=== PATIENT | male | born 1940 | race Caucasian/White ===

== ENCOUNTER 2018-02-01 14:09 | Emergency (ER) | payer MEDICARE, OTHER, SELFPAY ==
[2018-02-01 14:11] VITALS: BP 101/69; PULSE 60; RESP 18; TEMP 36.8; O2SAT 98; BMI 34.2
[2018-02-01 14:21] VITALS: BP 124/67; PULSE 61; RESP 16; O2SAT 94
--- NOTE | 2018-02-01 14:26 | EKG12_ITS ---
Test Reason : SOB Blood Pressure : / mmHG Vent. Rate : 063 BPM Atrial Rate : 063 BPM P-R Int : 200 ms QRS Dur : 074 ms QT Int : 440 ms P-R-T Axes : 094 -11 020 degrees QTc Int : 450 ms Normal sinus rhythm Low voltage QRS Borderline ECG Confirmed by RENU MARRERO ([id number]), pictures editor ULICES ELIAS ([id number]) on 02/05/2018 1:44:10 PM Referred By: PHAM Confirmed By:RENU MARRERO
[2018-02-01 14:45] VITALS: PULSE 62; RESP 16; O2SAT 95
[2018-02-01] MEDS: Albuterol 2.5 MG/3 ML VIAL.NEB. INHALATION ×2 (14:47)
[2018-02-01] MEDS: Ipratropium/Albuterol Sulfate 3 ML AMPUL.NEB INHALATION (14:47)
--- NOTE | 2018-02-01 14:57 | RAD_ITS ---
STUDY: X-RAY CHEST REASON FOR EXAM: Male, 77 years old. Productive cough, wheeze TECHNIQUE: PA and lateral views of the chest. COMPARISON: None. FINDINGS: Cardiac monitoring leads overlie the chest. The lungs are underinflated but clear. There is no demonstrated pleural abnormality. Normal size heart. Normal mediastinum and colette. Normal visualized pulmonary arteries. There is atherosclerotic calcification of the aortic arch with tortuosity. There are diffuse degenerative changes of the visualized thoracic spine. Normal visualized ribs, clavicles, and shoulders. There is no demonstrated abnormality of the visualized soft tissue structures of the upper abdomen. RAD/Chest PA and Lateral IMPRESSION: Low lung volumes, without focal consolidation. Electronically Signed: Spike Parry DO at 15:15 EDT Tel , Service support ,
[2018-02-01 15:02] LABS: Absolute Lymphocyte Count 2.07 X10^3/ul (0.83-4.51); Absolute Neutrophil Count 8.5 X10^3/uL (2.0-7.7); Basophil# 0.03 X10^3/uL; Basophil% 0.2 % (0-1); Eosinophil# 0.21 X10^3/uL; Eosinophils% 1.7 % (0-5); Hemoglobin 13.2 g/dl (13.0-16.5); Lymphocyte # 2.07 X10^3/ul (4.0); Mean Corp Hgb Conc 32.2 g/gl (32-36); Mean Corpuscular Hgb 28.9 pg (27.0-32.0); Mean Corpuscular Volume 89.9 fL (80-94); Mean Platelet Vol. 9.5 fl (6.2-12.0); Monocyte# 1.31 X10^3/uL; Monocyte% 10.8 % (0-10); Neutrophil % 70.1 % (47-70); POSITIVE COUNT NO; POSITIVE DIFFERENTIAL NO; POSITIVE MORPHOLOGY NO; Platelet Count 262 K/mm3 (150-450); RBC Distribution Width CV 13.1 % (11.6-14.6); RBC Distribution Width SD 42.3 fl (35.1-43.9); Red Blood Count 4.56 M/mm3 (4.6-6.2); White Blood Count 12.2 K/mm3 (4.4-11.0)
[2018-02-01 15:11] LABS: Anion Gap 7 (5-15); BUN 21 mg/dL (7-18); BUN/Creat Ratio 18.1 RATIO (10-20); Calcium,Total 8.9 mg/dL (8.5-10.1); Chloride 106 mmol/L (98-107); Creatinine, Serum 1.16 mg/dL (0.70-1.30); EST Glomerular Filtration Rate 65 mL/min (>60); Est Glom Filt Rate - Afr Amer 79 mL/min (>60); Estimated Creatinine Clearance 56.81 ml/min; Glucose 208 mg/dL (74-106); Potassium 3.9 mmol/L (3.5-5.1); Sodium Level 141 mmol/L (136-145)
--- NOTE | 2018-02-01 16:01 | ED.DCSUM_ITS ---
- ER Visit Summary Date of Service: 02/01/18 Chief Complaint: Terrible breathing and cough . History of Present Illness: The patient is a 77 M who has history of asthma not COPD who presents with productive cough of green-yellow sputum. Onset of illness 4 days ago. He denies fever, chills night sweats. He denies rhinorrhea , postnasal drainage or congestion. He denies ear pain, throat pain or difficulty swallowing. Said no change in voice. He reports he has a moist cough which is productive of yellow-green sputum. 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 He denies increased swelling of his legs. Denies pain or discoloration. He is working compression hoses because of his prior clots and venous stasis. Physical Examination: Vital signs are normal. He has audible wheezing. Head is atraumatic normocephalic. Pupils are equal round reactive. Extraocular muscles are intact. TMs are pearly white with landmarks noted. Nares patent with no drainage. Posterior pharynx without erythema or exudate. Uvula is midline. There is no dysphonia or dysphasia. Trachea is midline. There is no stridor with auscultation of the neck. Heart is regular without murmur, gallop or rub. Lungs reveal wheezing throughout with increased x-ray phase. There is no egophony or increased vocal fremitus. Abdomen is soft nontender. He has 1+ pitting edema both lower extremities. Distal pulses palpated upper lower extremity. Neuro exam is nonfocal. Test Results: Two-view chest x-ray was obtained and reveals limited inspiratory volume with no acute process. Cardiac silhouette and mediastinum are normal. No evidence of effusion or infiltrate. White count slightly elevated 12.2 with 70 segs no bands. I panels marked for glucose of 208. Emergency Department Course and Treatment: Because patient has audible wheezing with productive cough will obtain x-ray to rule out pneumonia. He was treated with DuoNeb and albuterol. He is moving more air. There are still wheezing. Will treat with prednisone 60 mg p.o. and he will receive a dose of levofloxacin since he is allergic to doxycycline. Treatment Plan: Prescription for levofloxacin and 5 day course of prednisone Disposition: Discharged to home Impression: 1. Purulent bronchitis 2. Exacerbation of asthma This note was generated with [employer] software. It may contain incorrect words, spelling, and punctuation that were not noted in review of the chart prior to signing ED Disposition - Plan for ED Patient: Disposition: Home or Assisted Living Chief Complaint: Shortness of Breath Instructions: ED Bronchitis Asthmatic Prescriptions: Albuterol Inhaler [Ventolin Hfa] 2 puff INHALATION Q4H PRN PRN #1 inhaler PRN Reason: Wheezing Levofloxacin [Levaquin] 500 mg PO DAILY #6 tab Prednisone [Deltasone] 40 mg PO DAILY #10 tab Referrals: [facility],Out of [Primary Care Provider] - 3-5 Days if not improving
[2018-02-01] MEDS: levoFLOXacin 750 MG Tablet PO (16:02)
[2018-02-01] MEDS: predniSONE 20 MG Tablet 60 MG PO (16:02)
--- NOTE | 2018-02-01 16:06 | ED.DCSUM_ITS ---
- ER Visit Summary Date of Service: 02/01/18 Chief Complaint: [] History of Present Illness: The patient is a 77 M [] Physical Examination: [] Test Results: [] Emergency Department Course and Treatment: [] Treatment Plan: [] Disposition: [] Impression: [] This note was generated with [employer] dictation software. It may contain incorrect words, spelling, and punctuation that were not noted in review of the chart prior to signing ED Disposition - Plan for ED Patient: Disposition: Home or Assisted Living Chief Complaint: Shortness of Breath Instructions: ED Bronchitis Asthmatic Prescriptions: Albuterol Inhaler [Ventolin Hfa] 2 puff INHALATION Q4H PRN PRN #1 inhaler PRN Reason: Wheezing Inhaler, Assist Devices [Space Chamber Plus] 1 ea MC UD #1 spacer Levofloxacin [Levaquin] 500 mg PO DAILY #6 tab Prednisone [Deltasone] 40 mg PO DAILY #10 tab Referrals: [facility],Out of [Primary Care Provider] - 3-5 Days if not improving
[2018-02-01 16:23] VITALS: BP 132/96; PULSE 70; RESP 20; O2SAT 95
[2018-02-01 16:24] VITALS: RESP 20
--- NOTE | 2018-02-01 16:24 | ED.RN ---
REVIEWED D/C INSTRUCTIONS, FOLLOW UP CARE, PRESCRIPTIONS, AND S/S THAT WOULD WARRANT A RETURN TO THE ED WITH PT. PT VERBALIZED AN UNDERSTANDING AND DENIES FURTHER QUESTIONS FOR THIS RN. PT SKIN P/W/D, RESP EVEN AND UNLABORED, PT A&O X 3, NO DISTRESS NOTED. PT AMBULATED OUT OF ED, GAIT STEADY.
== END 2018-02-01 16:25 | disposition home or self-care (01) ==
PROVIDERS: Emergency Provider Emergency Medicine
DX: J41.1 Mucopurulent chronic bronchitis (principal); J45.901 Unspecified asthma with (acute) exacerbation; E66.9 Obesity, unspecified; K21.9 Gastro-esophageal reflux disease without esophagitis; E11.9 Type 2 diabetes mellitus without complications; I10 Essential (primary) hypertension; E78.00 Pure hypercholesterolemia, unspecified; Z79.51 Long term (current) use of inhaled steroids; Z86.718 Personal history of other venous thrombosis and embolism; Z79.02 Long term (current) use of antithrombotics/antiplatelets; Z79.84 Long term (current) use of oral hypoglycemic drugs; Z79.899 Other long term (current) drug therapy
CPT/HCPCS: 71046; 80048; 85025; 93005; 94640; 99285; A4216

== ENCOUNTER → 2018-12-10 | Outpatient (CLI) | payer MEDICARE, OTHER, SELFPAY | END | disposition home or self-care (01) | PROVIDERS: Family Provider Family Medicine; PCP Family Medicine; Referring Provider Family Medicine; Visit Provider Family Medicine | DX: E11.9 Type 2 diabetes mellitus without complications (principal); J44.9 Chronic obstructive pulmonary disease, unspecified | CPT/HCPCS: 36415 ==

== ENCOUNTER 2019-02-12 14:15 | Outpatient (RCR) | payer MEDICARE, OTHER, SELFPAY ==
[2019-01-15 15:24] VITALS: BP 110/51; PULSE 75; RESP 16; TEMP 36.3; BMI 35.3
--- NOTE | 2019-01-15 16:41 | HP.PCM_ITS ---
(1) Ulcer of right lower extremity with fat layer exposed Status: Chronic Current Visit: Yes Code(s): L97.912 - Non-pressure chronic ulcer of unspecified part of right lower leg with fat layer exposed (2) Ulcer of left lower extremity with fat layer exposed Status: Chronic Current Visit: Yes Code(s): L97.922 - Non-pressure chronic ulcer of unspecified part of left lower leg with fat layer exposed (3) Malnutrition Status: Suspected Current Visit: Yes Code(s): E46 - Unspecified protein- calorie malnutrition (4) Edema of lower extremity Status: Chronic Current Visit: No Code(s): R60.0 - Localized edema (5) Venous insufficiency of both lower extremities Status: Chronic Current Visit: Yes Code(s): I87.2 - Venous insufficiency (chronic) (peripheral) (6) Diabetic neuropathy associated with type 2 diabetes mellitus Status: Chronic Current Visit: Yes Code(s): E11.40 - Type 2 diabetes mellitus with diabetic neuropathy, unspecified History of Present Illness Date of Service: 01/17/19 Chief Complaint: New right and left leg ulcers History of Wound: 78-year-old male with diabetes, history of blood clots has Remington filters, venous insufficiency presents with open ulcers to the right and left legs. He had a recent injury to the left leg which caused a break in the skin. He denies trauma to the right leg however he noticed that as his swelling fluctuates this ulcer site emerged. He denies redness or odor. He did have previous vein ablations performed. He denies current fever, chill, nausea, vomiting, shortness of breath or chest pain. He is with his today. Past Medical History Past Medical History: Chronic Problems Ulcer of right lower extremity with fat layer exposed (Chronic) Ulcer of left lower extremity with fat layer exposed (Chronic) Leg erythema (Chronic) Essential hypertension (Chronic) GERD (gastroesophageal reflux disease) (Chronic) Hyperlipidemia (Chronic) COPD (chronic obstructive pulmonary disease) (Chronic) Edema of lower extremity (Chronic) Venous insufficiency of both lower extremities (Chronic) Diabetic neuropathy associated with type 2 diabetes mellitus (Chronic) Type 2 diabetes mellitus (Chronic) Surgical History: - - vein ablation LLE, juve filter placement Allergies/Adverse Reactions: Allergies clindamycin Allergy (Verified 01/15/19 15:54) Rash doxycycline Allergy (Verified 01/15/19 15:54) Rash Home Medications: Ambulatory Orders Medication Instructions Recorded Apixaban [Eliquis] 5 mg PO BID 02/03/16 Fluticasone/Salmeterol [Advair 1 puff INHALATION BID 02/03/16 500/50 Mcg Diskus] Montelukast [Singulair] 10 mg PO DAILY 02/03/16 Omeprazole [Prilosec] 20 mg PO DAILY 02/03/16 Propranolol HCl [Inderal (Beta 40 mg PO BID 02/03/16 Fernando)] Simvastatin [Zocor] 20 mg PO QHS 02/03/16 glipiZIDE [Glucotrol] 10 mg PO BID 02/03/16 metFORMIN (XR) [Glucophage Xr] 500 mg PO DAILY 02/03/16 Ferrous Sulfate 65 mg PO DAILY 02/04/16 Cetirizine HCl [Zyrtec] 10 mg PO DAILY 02/17/16 Co Q10 200 [Co Q-10] 100 mg PO DAILY 02/17/16 Docusate Sodium [Colace] 100 mg PO DAILY 02/17/16 Multivit-Min/Iron Fum/Folic AC 1 tab PO DAILY 02/17/16 [Rsiro-Ytzuukn-Xdaavwhi Tablet] Albuterol Inhaler [Ventolin Hfa] 2 puff INHALATION Q4H PRN PRN #1 02/01/18 inhaler Cholecalciferol (Vitamin D3) 5,000 unit PO DAILY 02/01/18 [Vitamin D3] Furosemide [Lasix] 10 mg PO DAILY 02/01/18 Hydroxyzine HCl 25 mg PO BID 02/01/18 Inhaler, Assist Devices [Space 1 ea MC UD #1 spacer 02/01/18 Chamber Plus] Bitter Melon 500 mg PO DAILY 01/15/19 Dapagliflozin Propanediol [Farxiga] 5 mg PO DAILY 01/15/19 Herbal Prostate PO DAILY 01/15/19 - Family History Maternal No pertinent history Paternal No pertinent history Smoking Status: Never smoker Review of Systems Constitutional: Denies: Chills, Fever, Fatigue HEENT: Denies: Sore Throat Cardiovascular: Denies: Chest Pain, Claudication Respiratory: Denies: Shortness of Breath Gastrointestinal: Denies: Nausea, Vomiting Musculoskeletal: Denies: Foot Pain, Leg Pain Skin: Reports: Skin Changes, Wounds Neurological: Denies: Numbness, Tingling Hematologic/ Lymphatic: Reports: Easy Bruising, Hx of blood clot - Physical Exam Vital Signs Temp Pulse Resp BP 97.3 F L 75 16 110/51 L 01/15/19 15:24 01/15/19 15:24 01/15/19 15:24 01/15/19 15:24 General: Alert, Oriented x3, Cooperative, No apparent distress HEENT: Atraumatic Extremities: No cyanosis, Capillary Refill Less than 3 Seconds, No Calf Tenderness - Negative Jana and Sanford signs bilateral, Diminished Peripheral Pulses, Edema Skin: Ulcer/ Wound - No purulence, erythema hamstring, odor, infection bilateral. The peripheral skin is very hairless and atrophic. There is no necrosis, eschar, or probing to deep structures to bilateral lower extremities. The ulcer bases are fibrous and with pale granulation tissue Wound Measurements and Assessment WC - Nurse 1 - General Ulcer Measurement Start: 01/15/19 15:24 Freq: Status: Active Protocol: Activity Type Activity Date Activity User E-Sign Co-Sign Detail Recorded Client Recorded Date Recorded By Document 01/15/19 15:24 [facility] [id number] 01/15/19 15:52 [facility] 01/15/19 15:24 Wound Center Nurse 1 [Ulcer Assessment] #8- L MCDOWELL -Combined with other wound No -Current Size (cm) - Length 0.7 -Current Size (cm) - Width 2 -Current Size (cm) - Depth 0.1 -Total Square Cm 1.4 -Photo Taken No -Epithelialization None Present -Tunneling No -Undermining/Tunneling No -Circular Undermining No -Exudate Amt Small -Exudate Type Sanguineous -Wound Margin Flat & Intact -Granulation Amt Large (67-100%) -Granulation Quality Red -Slough/Fibrin No -Necrosis Amt None Present (0 %) -Texture (Sharri-wound Skin Appearance) Assessed, Scarring -Moisture (Sharri-wound Skin Appearance Assessed,Dry/ ) Scaly -Color (Sharri-wound Skin Appearance) Assessed, Erythema, Hemosiderin Staining -Temperature (Sharri-wound Skin No Abnormality Appearance) (Pt Warm) -Tenderness on Palpation (Sharri-wound Yes Skin Appearance) -Ulcer Cleansing Rinsed/ Irrigated with Saline -Foul Odor after Cleansing No -Anesthetic Used 5% Lidocaine Gel #7- RT MEDIAL LEG/CALF CLUSTER -Combined with other wound No -Current Size (cm) - Length 3.8 -Current Size (cm) - Width 5.3 -Current Size (cm) - Depth 0.1 -Total Square Cm 20.14 -Date of Last Picture (Recall this 01/15/19 field) -Photo Taken Yes -Epithelialization None Present -Tunneling No -Undermining/Tunneling No -Circular Undermining No -Exudate Amt Small -Exudate Type Sanguineous -Wound Margin Flat & Intact -Granulation Amt Small (1-33%) -Granulation Quality Red -Slough/Fibrin Yes -Necrosis Amt Medium (34-66%) -Necrotic Tissue Type Adherent Slough -Texture (Sharri-wound Skin Appearance) Assessed, Scarring -Moisture (Sharri-wound Skin Appearance Assessed,Dry/ ) Scaly -Color (Sharri-wound Skin Appearance) Assessed, Erythema, Hemosiderin Staining -Temperature (Sharri-wound Skin No Abnormality Appearance) (Pt Warm) -Tenderness on Palpation (Sharri-wound No Skin Appearance) -Ulcer Cleansing Rinsed/ Irrigated with Saline -Foul Odor after Cleansing No -Anesthetic Used 5% Lidocaine Gel [Edema Assessment] -Lower Limb Edema Present Yes -Right Calf (cm) 41 -Right Ankle (cm) 26.1 -Left Calf (cm) 42 -Left Ankle (cm) 26.8 WC - Nurse 2 - General Ulcer CM Notes Start: 01/15/19 15:24 Freq: Status: Active Protocol: Activity Type Activity Date Activity User E-Sign Co-Sign Detail Recorded Client Recorded Date Recorded By Document 01/15/19 16:16 ROWDY [id number] 01/15/19 16:19 01/15/19 16:16 Wound Center Nurse 2 [Procedure/Treatment] #8- L MCDOWELL -Time 16:16 -Correct Patient Yes -Correct Side, Site, Position Yes -Correct Procedure Yes -Procedure Performed Yes -Type of Procedure Debridement -Clinical Debridement Subcutaneous -Post Debridement Size (cm) - Length 0.8 -Post Debridement Size (cm) - Width 0.2 -Post Debridement Size (cm) - Depth 0.1 -Total Square Cm 0.16 -Wound/Ulcer Outcome Not Healed -Ulcer Cleansing Rinsed/ Irrigated with Saline -Foul Odor after Cleansing No -Bioengineered Tissue No -Bleeding Controlled with Pressure -Offloading No -Treatment Response Procedure Tolerated Well #7- RT MEDIAL LEG/CALF CLUSTER -Time 16:16 -Correct Patient Yes -Correct Side, Site, Position Yes -Correct Procedure Yes -Procedure Performed Yes -Type of Procedure Debridement -Clinical Debridement Subcutaneous -Post Debridement Size (cm) - Length 3.8 -Post Debridement Size (cm) - Width 5.4 -Post Debridement Size (cm) - Depth 0.1 -Total Square Cm 20.52 -Wound/Ulcer Outcome Not Healed -Ulcer Cleansing Rinsed/ Irrigated with Saline -Bioengineered Tissue No -Bleeding Controlled with Pressure -Offloading No -Treatment Response Procedure Tolerated Well [See Physician Procedure note for Specifics] Pain Scale: 0-10 Numeric [Pain] -Is Patient Pain Free? Yes Musculoskeletal: No Tenderness to Palpation of Joints or Extremities, Muscle Wasting, - - No bogginess or fluctuance on palpation bilateral lower extremities. Active range of motion of digits and ankles in all directions as noted bilateral lower extremity Neurological: - - Lack of full normal epicritic sensation to light touch consistent with potential neuropathy bilateral lower extremities Psych/Mental Status: Normal Affect, Appropriate Debridement Note Post-Debridement Measurements/Treatment WC - Nurse 2 - General Ulcer CM Notes Start: 01/15/19 15:24 Freq: Status: Active Protocol: Activity Type Activity Date Activity User E-Sign Co-Sign Detail Recorded Client Recorded Date Recorded By Document 01/15/19 16:16 ROWDY [id number] 01/15/19 16:19 ROWDY 01/15/19 16:16 Wound Center Nurse 2 #8- L MCDOWELL -Time 16:16 -Correct Patient Yes -Correct Side, Site, Position Yes -Correct Procedure Yes -Procedure Performed Yes -Type of Procedure Debridement -Clinical Debridement Subcutaneous -Post Debridement Size (cm) - Length 0.8 -Post Debridement Size (cm) - Width 0.2 -Post Debridement Size (cm) - Depth 0.1 -Total Square Cm 0.16 -Wound/Ulcer Outcome Not Healed -Ulcer Cleansing Rinsed/ Irrigated with Saline -Foul Odor after Cleansing No -Bioengineered Tissue No -Bleeding Controlled with Pressure -Offloading No -Treatment Response Procedure Tolerated Well #7- RT MEDIAL LEG/CALF CLUSTER -Time 16:16 -Correct Patient Yes -Correct Side, Site, Position Yes -Correct Procedure Yes -Procedure Performed Yes -Type of Procedure Debridement -Clinical Debridement Subcutaneous -Post Debridement Size (cm) - Length 3.8 -Post Debridement Size (cm) - Width 5.4 -Post Debridement Size (cm) - Depth 0.1 -Total Square Cm 20.52 -Wound/Ulcer Outcome Not Healed -Ulcer Cleansing Rinsed/ Irrigated with Saline -Bioengineered Tissue No -Bleeding Controlled with Pressure -Offloading No -Treatment Response Procedure Tolerated Well Pain Scale: 0-10 Numeric Is Patient Pain Free? Yes Wound debrided: leg Laterality: Right Wound Grade/Stage: grade 1 Type of Debridement: Excisional debridement Anesthesia Used: 5% Lidocaine Gel Depth: in the subcutaneous layer Percentage of wound debrided: 100 Instrument Used: #15 blade Tissue Removed: fibrous, devitalized subcutaneous, biofilm, slough Severity: Fat Layer Exposed Amount of bleeding with debridement: Mild Bleeding Controlled with: Pressure Patient tolerated procedure well - Additional Wound Wound debrided: leg Laterality: Left Wound Grade/Stage: grade 1 Type of Debridement: Excisional debridement Anesthesia Used: 5% Lidocaine Gel Depth: in the subcutaneous layer Percentage of wound debrided: 100 Instrument Used: #15 blade Tissue Removed: fibrous, devitalized subcutaneous, biofilm, slough Severity: Fat Layer Exposed Amount of bleeding with debridement: Mild Bleeding Controlled with: Pressure Patient tolerated procedure: Patient tolerated procedure well Assessment/Plan Active Problems Ulcer of right lower extremity with fat layer exposed (Chronic) Ulcer of left lower extremity with fat layer exposed (Chronic) Venous insufficiency of both lower extremities (Chronic) Diabetic neuropathy associated with type 2 diabetes mellitus (Chronic) Assessment: See diagnoses Plan: I reviewed and discussed his case today. I recommend updating the tita gnostic data with CBC, CMP, hemoglobin A1c, and prealbumin. Order was provided. Subcutaneous excisional debridement was performed as noted in the clinical panel to both ulcer sites. A dressing of hydrogel and Adaptic was applied and I recommended changing this daily. To continue with compression management to keep edema under control with Tubigrip's. I do recommend periodic elevation and to avoid idle standing and sitting. He is reassured no local signs of infection are noted and I do not recommend additional antibiotics. It is also noted he is on anticoagulation medication Eliquis and he is at risk for continued skin discontinuities. I recommend updating his noninvasive vascular studies in order were provided today. His previous venous intervention was also noted and I recommend record request. Nutritional supplementation was recommended to optimize healing. To keep pressure off of the sites by avoid laying directly on them I offered him offloading donut pillows. A prescription for Vernon was provided he was advised on safe and proper use. To return to the wound healing center 1 week or call sooner for any questions or concerns. I answered all his questions.
[2019-01-22 13:31] VITALS: BP 124/69; PULSE 74; RESP 16; TEMP 36.6; BMI 35.3
--- NOTE | 2019-01-22 15:19 | PN.PCM_ITS ---
(1) Ulcer of right lower extremity with fat layer exposed Status: Chronic Current Visit: Yes Code(s): L97.912 - Non-pressure chronic ulcer of unspecified part of right lower leg with fat layer exposed (2) Ulcer of left lower extremity with fat layer exposed Status: Chronic Current Visit: Yes Code(s): L97.922 - Non-pressure chronic ulcer of unspecified part of left lower leg with fat layer exposed (3) Malnutrition Status: Suspected Current Visit: Yes Code(s): E46 - Unspecified protein- calorie malnutrition (4) Edema of lower extremity Status: Chronic Current Visit: No Code(s): R60.0 - Localized edema (5) Venous insufficiency of both lower extremities Status: Chronic Current Visit: Yes Code(s): I87.2 - Venous insufficiency (chronic) (peripheral) (6) Diabetic neuropathy associated with type 2 diabetes mellitus Status: Chronic Current Visit: Yes Code(s): E11.40 - Type 2 diabetes mellitus with diabetic neuropathy, unspecified (7) Peripheral vascular disease Status: Suspected Current Visit: Yes Code(s): I73.9 - Peripheral vascular disease, unspecified Type of Wound Date of Service: 01/22/19 Chief Complaint: New right and left leg ulcers History of Wound: 78-year-old male with diabetes, history of blood clots has [facility] filters, venous insufficiency presents with open ulcers to the right and left legs. He had a recent injury to the left leg which caused a break in the skin. He denies trauma to the right leg however he noticed that as his swelling fluctuates this ulcer site emerged. He denies redness or odor. He did have previous vein ablations performed. He denies current fever, chill, nausea, vomiting, shortness of breath or chest pain. He is with his today. He started Vernon nutritional supplementation as prescribed. He did obtain the recommended lab work at the [facility] and these have been faxed over for review. Progress of Wound: Stable - Physical Exam Vital Signs Temp Pulse Resp BP 97.8 F 74 16 124/69 H 01/22/19 13:31 01/22/19 13:31 01/22/19 13:31 01/22/19 13:31 General: Alert, Oriented x3, Cooperative, No apparent distress Extremities: No cyanosis, Capillary Refill Less than 3 Seconds, No Calf Tenderness - Negative Jana and Sanford sign bilateral, Diminished Peripheral Pulses, Edema - Bilateral lower extremity with hyperpigmentation Skin: Ulcer/ Wound - No purulence, erythema hamstring, odor, or acute signs of infection bilateral. The peripheral skin is hairless and atrophic. Wound Measurements and Assessment WC - Nurse 1 - General Ulcer Measurement Start: 01/15/19 15:24 Freq: Status: Active Protocol: Activity Type Activity Date Activity User E-Sign Co-Sign Detail Recorded Client Recorded Date Recorded By Document 01/22/19 13:31 [facility] [id number] 01/22/19 13:45 [facility] 01/22/19 13:31 Wound Center Nurse 1 [Ulcer Assessment] #9 LT CALF CLUSTER -Combined with other wound No -Current Size (cm) - Length 6.3 -Current Size (cm) - Width 1.9 -Current Size (cm) - Depth 0.1 -Total Square Cm 11.97 -Date of Last Picture (Recall this 01/22/19 field) -Photo Taken Yes -Epithelialization None Present -Tunneling No -Undermining/Tunneling No -Circular Undermining No -Exudate Amt Small -Exudate Type Serosanguineous -Wound Margin Flat & Intact -Granulation Amt Large (67-100%) -Granulation Quality Red -Slough/Fibrin No -Necrosis Amt None Present (0 %) -Texture (Sharri-wound Skin Appearance) Assessed, Scarring -Moisture (Sharri-wound Skin Appearance Assessed ) -Color (Sharri-wound Skin Appearance) Assessed, Hemosiderin Staining -Temperature (Sharri-wound Skin No Abnormality Appearance) (Pt Warm) -Tenderness on Palpation (Sharri-wound No Skin Appearance) -Ulcer Cleansing Rinsed/ Irrigated with Saline -Foul Odor after Cleansing No -Anesthetic Used 5% Lidocaine Gel #8- L MCDOWELL -Combined with other wound No -Current Size (cm) - Length 1.7 -Current Size (cm) - Width 1.8 -Current Size (cm) - Depth 0.1 -Total Square Cm 3.06 -Date of Last Picture (Recall this 01/22/19 field) -Photo Taken Yes -Epithelialization Small 1-33% -Tunneling No -Undermining/Tunneling No -Circular Undermining No -Exudate Amt Small -Exudate Type Serous -Wound Margin Flat & Intact -Granulation Amt Large (67-100%) -Granulation Quality Red -Slough/Fibrin No -Necrosis Amt None Present (0 %) -Texture (Sharri-wound Skin Appearance) Assessed, Scarring -Moisture (Sharri-wound Skin Appearance Assessed,Dry/ ) Scaly -Color (Sharri-wound Skin Appearance) Assessed, Hemosiderin Staining -Temperature (Sharri-wound Skin No Abnormality Appearance) (Pt Warm) -Tenderness on Palpation (Sharri-wound No Skin Appearance) -Ulcer Cleansing Rinsed/ Irrigated with Saline -Foul Odor after Cleansing No -Anesthetic Used 5% Lidocaine Gel #7- RT MEDIAL LEG/CALF CLUSTER -Combined with other wound No -Current Size (cm) - Length 2.3 -Current Size (cm) - Width 2.3 -Current Size (cm) - Depth 0.1 -Total Square Cm 5.29 -Date of Last Picture (Recall this 01/22/19 field) -Photo Taken Yes -Epithelialization None Present -Tunneling No -Undermining/Tunneling No -Circular Undermining No -Exudate Amt Small -Exudate Type Serosanguineous -Wound Margin Flat & Intact -Granulation Amt Large (67-100%) -Granulation Quality Red -Slough/Fibrin No -Necrosis Amt None Present (0 %) -Texture (Sharri-wound Skin Appearance) Assessed, Scarring -Moisture (Sharri-wound Skin Appearance Assessed,Dry/ ) Scaly -Color (Sharri-wound Skin Appearance) Assessed, Hemosiderin Staining -Temperature (Sharri-wound Skin No Abnormality Appearance) (Pt Warm) -Tenderness on Palpation (Sharri-wound No Skin Appearance) -Ulcer Cleansing Rinsed/ Irrigated with Saline -Foul Odor after Cleansing No -Anesthetic Used 5% Lidocaine Gel [Edema Assessment] -Lower Limb Edema Present Yes -Right Calf (cm) 41.4 -Right Ankle (cm) 26 -Left Calf (cm) 43 -Left Ankle (cm) 27 WC - Nurse 2 - General Ulcer CM Notes Start: 01/15/19 15:24 Freq: Status: Active Protocol: Activity Type Activity Date Activity User E-Sign Co-Sign Detail Recorded Client Recorded Date Recorded By Document 01/22/19 14:15 ROWDY [id number] 01/22/19 14:19 ROWDY 01/22/19 14:15 Wound Center Nurse 2 [Procedure/Treatment] #9 LT CALF CLUSTER -Time 14:17 -Correct Patient Yes -Correct Side, Site, Position Yes -Correct Procedure Yes -Procedure Performed Yes -Type of Procedure Debridement -Clinical Debridement Subcutaneous -Post Debridement Size (cm) - Length 6.3 -Post Debridement Size (cm) - Width 2 -Post Debridement Size (cm) - Depth 0.1 -Total Square Cm 12.6 -Wound/Ulcer Outcome Not Healed -Ulcer Cleansing Rinsed/ Irrigated with Saline -Foul Odor after Cleansing No -Bioengineered Tissue No -Bleeding Controlled with Pressure -Offloading No -Treatment Response Procedure Tolerated Well #8- L MCDOWELL -Time 14:17 -Correct Patient Yes -Correct Side, Site, Position Yes -Correct Procedure Yes -Procedure Performed Yes -Type of Procedure Debridement -Clinical Debridement Subcutaneous -Post Debridement Size (cm) - Length 1.8 -Post Debridement Size (cm) - Width 1.8 -Post Debridement Size (cm) - Depth 0.1 -Total Square Cm 3.24 -Wound/Ulcer Outcome Not Healed -Ulcer Cleansing Rinsed/ Irrigated with Saline -Foul Odor after Cleansing No -Bioengineered Tissue No -Bleeding Controlled with Pressure -Offloading No -Treatment Response Procedure Tolerated Well #7- RT MEDIAL LEG/CALF CLUSTER -Time 14:18 -Correct Patient Yes -Correct Side, Site, Position Yes -Correct Procedure Yes -Procedure Performed Yes -Type of Procedure Debridement -Clinical Debridement Subcutaneous -Post Debridement Size (cm) - Length 2.3 -Post Debridement Size (cm) - Width 2.4 -Post Debridement Size (cm) - Depth 0.1 -Total Square Cm 5.52 -Wound/Ulcer Outcome Not Healed -Ulcer Cleansing Rinsed/ Irrigated with Saline -Foul Odor after Cleansing No -Bioengineered Tissue No -Bleeding Controlled with Pressure -Offloading No -Treatment Response Procedure Tolerated Well [See Physician Procedure note for Specifics] Pain Scale: 0-10 Numeric [Pain] -Is Patient Pain Free? Yes Musculoskeletal: No Tenderness to Palpation of Joints or Extremities, Muscle Wasting, - - Compartment soft to palpate bilateral Neurological: - - Lack of epicritic sensation to light touch consistent with neuropathy bilateral lower extremities Psych/Mental Status: Normal Affect, Appropriate Debridement Note Post-Debridement Measurements/Treatment WC - Nurse 2 - General Ulcer CM Notes Start: 01/15/19 15:24 Freq: Status: Active Protocol: Activity Type Activity Date Activity User E-Sign Co-Sign Detail Recorded Client Recorded Date Recorded By Document 01/15/19 16:16 [id number] 01/15/19 16:19 Document 01/22/19 14:15 [id number] 01/22/19 14:19 01/15/19 01/22/19 16:16 14:15 Wound Center Nurse 2 #9 LT CALF CLUSTER -Time 14:17 -Correct Patient Yes -Correct Side, Site, Position Yes -Correct Procedure Yes -Procedure Performed Yes -Type of Procedure Debridement -Clinical Debridement Subcutaneous -Post Debridement Size (cm) - Length 6.3 -Post Debridement Size (cm) - Width 2 -Post Debridement Size (cm) - Depth 0.1 -Total Square Cm 12.6 -Wound/Ulcer Outcome Not Healed -Ulcer Cleansing Rinsed/ Irrigated with Saline -Foul Odor after Cleansing No -Bioengineered Tissue No -Bleeding Controlled with Pressure -Offloading No -Treatment Response Procedure Tolerated Well #8- L MCDOWELL -Time 16:16 14:17 -Correct Patient Yes Yes -Correct Side, Site, Position Yes Yes -Correct Procedure Yes Yes -Procedure Performed Yes Yes -Type of Procedure Debridement Debridement -Clinical Debridement Subcutaneous Subcutaneous -Post Debridement Size (cm) - Length 0.8 1.8 -Post Debridement Size (cm) - Width 0.2 1.8 -Post Debridement Size (cm) - Depth 0.1 0.1 -Total Square Cm 0.16 3.24 -Wound/Ulcer Outcome Not Healed Not Healed -Ulcer Cleansing Rinsed/ Rinsed/ Irrigated with Irrigated with Saline Saline -Foul Odor after Cleansing No No -Bioengineered Tissue No No -Bleeding Controlled with Pressure Pressure -Offloading No No -Treatment Response Procedure Procedure Tolerated Well Tolerated Well #7- RT MEDIAL LEG/CALF CLUSTER -Time 16:16 14:18 -Correct Patient Yes Yes -Correct Side, Site, Position Yes Yes -Correct Procedure Yes Yes -Procedure Performed Yes Yes -Type of Procedure Debridement Debridement -Clinical Debridement Subcutaneous Subcutaneous -Post Debridement Size (cm) - Length 3.8 2.3 -Post Debridement Size (cm) - Width 5.4 2.4 -Post Debridement Size (cm) - Depth 0.1 0.1 -Total Square Cm 20.52 5.52 -Wound/Ulcer Outcome Not Healed Not Healed -Ulcer Cleansing Rinsed/ Rinsed/ Irrigated with Irrigated with Saline Saline -Foul Odor after Cleansing No -Bioengineered Tissue No No -Bleeding Controlled with Pressure Pressure -Offloading No No -Treatment Response Procedure Procedure Tolerated Well Tolerated Well Pain Scale: 0-10 Numeric Is Patient Pain Free? Yes Yes Wound debrided: anterior leg Laterality: Right Wound Grade/Stage: grade 1 Type of Debridement: Excisional debridement Anesthesia Used: 5% Lidocaine Gel Depth: in the subcutaneous layer Percentage of wound debrided: 100 Instrument Used: #15 blade Tissue Removed: fibrous, devitalized subcutaneous, biofilm, slough Severity: Fat Layer Exposed Amount of bleeding with debridement: Mild Bleeding Controlled with: Pressure Patient tolerated procedure well - Additional Wound Wound debrided: anterior leg Laterality: Left Wound Grade/Stage: grade 1 Type of Debridement: Excisional debridement Anesthesia Used: 5% Lidocaine Gel Depth: in the subcutaneous layer Percentage of wound debrided: 100 Instrument Used: #15 blade Tissue Removed: fibrous, devitalized subcutaneous, biofilm, slough Severity: Fat Layer Exposed Amount of bleeding with debridement: Mild Bleeding Controlled with: Pressure Patient tolerated procedure: Patient tolerated procedure well Assessment/Plan Active Problems Ulcer of right lower extremity with fat layer exposed (Chronic) Ulcer of left lower extremity with fat layer exposed (Chronic) Venous insufficiency of both lower extremities (Chronic) Diabetic neuropathy associated with type 2 diabetes mellitus (Chronic) Assessment: See diagnoses Plan: I reviewed and discussed his case today. I recommend updating the diagnostic data with CBC, CMP, hemoglobin A1c, and prealbumin. This was reviewed as noted in his previous notes addendum. His hemoglobin A1c is 7.4 which is decreased from 9%. He continues work with his primary care physician on improvement. No other gross abnormalities were noted. Subcutaneous excisional debridement was performed as noted in the clinical panel to both ulcer sites. A dressing of hydrogel and Adaptic was applied and I recommended changing this daily. To continue with compression management to keep edema under control with Tubigrip's. I do recommend periodic elevation and to avoid idle standing and sitting. He is reassured no local signs of infection are noted and I do not recommend additional antibiotics. It is also noted he is on anticoagulation medication Eliquis and he is at risk for continued skin d iscontinuities. I recommend updating his noninvasive vascular arterial studies and updated venous Doppler with reflux evaluation were provided. His previous venous intervention was also noted and I recommend record request. Nutritional supplementation was recommended to optimize healing. To continue prescribed Vernon supplementation twice daily. To keep pressure off of the sites by avoid laying directly on them I offered him offloading donut pillows. To return to the wound healing center 1 week or call sooner for any questions or concerns. I answered all his questions.
[2019-01-29 13:54] VITALS: BP 137/71; PULSE 71; RESP 18; TEMP 35.7; BMI 35.3
--- NOTE | 2019-01-29 14:40 | PN.PCM_ITS ---
(1) Ulcer of right lower extremity with fat layer exposed Status: Chronic Current Visit: Yes Code(s): L97.912 - Non-pressure chronic ulcer of unspecified part of right lower leg with fat layer exposed (2) Ulcer of left lower extremity with fat layer exposed Status: Chronic Current Visit: Yes Code(s): L97.922 - Non-pressure chronic ulcer of unspecified part of left lower leg with fat layer exposed (3) Malnutrition Status: Suspected Current Visit: Yes Code(s): E46 - Unspecified protein- calorie malnutrition (4) Edema of lower extremity Status: Chronic Current Visit: No Code(s): R60.0 - Localized edema (5) Venous insufficiency of both lower extremities Status: Chronic Current Visit: Yes Code(s): I87.2 - Venous insufficiency (chronic) (peripheral) (6) Diabetic neuropathy associated with type 2 diabetes mellitus Status: Chronic Current Visit: Yes Code(s): E11.40 - Type 2 diabetes mellitus with diabetic neuropathy, unspecified (7) Peripheral vascular disease Status: Suspected Current Visit: Yes Code(s): I73.9 - Peripheral vascular disease, unspecified Type of Wound Date of Service: 01/29/19 Chief Complaint: right and left leg ulcers History of Wound: 78-year-old male with diabetes, history of blood clots has [place] filters, venous insufficiency presents with open ulcers to the right and left legs. He is also noted to both legs. He denies redness or odor. He did have previous vein ablations performed. He denies current fever, chill, nausea, vomiting, shortness of breath or chest pain. He is with his today. He started [place] nutritional supplementation as prescribed and thinks it is increasing his blood sugar; he takes 1 packet a day. Progress of Wound: Stable - Physical Exam Vital Signs Temp Pulse Resp BP 96.2 F L 71 18 137/71 H 01/29/19 13:54 01/29/19 13:54 01/29/19 13:54 01/29/19 13:54 General: Alert, Oriented x3, Cooperative, No apparent distress Extremities: No cyanosis, Capillary Refill Less than 3 Seconds, No Calf Tenderness - Negative Jana and [place]ford signs bilateral. Compartments are soft to palpate bilateral, Diminished Peripheral Pulses, Edema - Bilateral lower extreme knees with hyperpigmentation Skin: Ulcer/ Wound - No purulence, erythema, streaking, odor, infection bilateral. The skin is hairless and atrophic bilateral Wound Measurements and Assessment WC - Nurse 1 - General Ulcer Measurement Start: 01/15/19 15:24 Freq: Status: Active Protocol: Activity Type Activity Date Activity User E-Sign Co-Sign Detail Recorded Client Recorded Date Recorded By Document 01/29/19 13:54 [facility] [id number] 01/29/19 14:07 [facility] 01/29/19 13:54 Wound Center Nurse 1 [Ulcer Assessment] #10- R MCDOWELL -Combined with other wound No -Current Size (cm) - Length 1.4 -Current Size (cm) - Width 1.1 -Current Size (cm) - Depth 0.1 -Total Square Cm 1.54 -Date of Last Picture (Recall this 01/29/19 field) -Photo Taken Yes -Epithelialization Large 67-100% -Tunneling No -Undermining/Tunneling No -Circular Undermining No -Exudate Amt Small -Exudate Type Serous -Wound Margin Flat & Intact -Granulation Amt Large (67-100%) -Granulation Quality Red -Slough/Fibrin No -Necrosis Amt None Present (0 %) -Texture (Sharri-wound Skin Appearance) Assessed, Scarring -Moisture (Sharri-wound Skin Appearance Assessed,Dry/ ) Scaly -Color (Sharri-wound Skin Appearance) Assessed, Hemosiderin Staining -Temperature (Sharri-wound Skin No Abnormality Appearance) (Pt Warm) -Tenderness on Palpation (Sharri-wound No Skin Appearance) -Ulcer Cleansing Rinsed/ Irrigated with Saline -Foul Odor after Cleansing No -Anesthetic Used 4% Lidocaine Solution #9 LT CALF CLUSTER -Combined with other wound No -Current Size (cm) - Length 0 -Current Size (cm) - Width 0 -Current Size (cm) - Depth 0 -Total Square Cm 0 -Epithelialization Large 67-100% -Texture (Sharri-wound Skin Appearance) Assessed, Scarring -Moisture (Sharri-wound Skin Appearance Assessed,Dry/ ) Scaly -Color (Sharri-wound Skin Appearance) Assessed -Temperature (Sharri-wound Skin No Abnormality Appearance) (Pt Warm) -Tenderness on Palpation (Sharri-wound No Skin Appearance) -Ulcer Cleansing Rinsed/ Irrigated with Saline #8- L MCDOWELL -Combined with other wound No -Current Size (cm) - Length 1.3 -Current Size (cm) - Width 1.3 -Current Size (cm) - Depth 0.1 -Total Square Cm 1.69 -Photo Taken No -Epithelialization Small 1-33% -Tunneling No -Undermining/Tunneling No -Circular Undermining No -Exudate Amt Small -Exudate Type Serous -Wound Margin Flat & Intact -Granulation Amt Large (67-100%) -Granulation Quality Red -Slough/Fibrin Yes -Necrosis Amt Small (1-33%) -Necrotic Tissue Type Adherent Slough -Texture (Sharri-wound Skin Appearance) Assessed, Scarring -Moisture (Sharri-wound Skin Appearance Assessed,Dry/ ) Scaly -Color (Sharri-wound Skin Appearance) Assessed, Hemosiderin Staining -Temperature (Sharri-wound Skin No Abnormality Appearance) (Pt Warm) -Tenderness on Palpation (Sharri-wound No Skin Appearance) -Ulcer Cleansing Rinsed/ Irrigated with Saline -Foul Odor after Cleansing No -Anesthetic Used 4% Lidocaine Solution #7- RT MEDIAL LEG/CALF CLUSTER -Combined with other wound No -Current Size (cm) - Length 2.3 -Current Size (cm) - Width 2.5 -Current Size (cm) - Depth 0.1 -Total Square Cm 5.75 -Photo Taken No -Epithelialization Small 1-33% -Tunneling No -Undermining/Tunneling No -Circular Undermining No -Exudate Amt Small -Exudate Type Serosanguineous -Wound Margin Flat & Intact -Granulation Amt Large (67-100%) -Granulation Quality Red -Slough/Fibrin Yes -Necrosis Amt Small (1-33%) -Necrotic Tissue Type Adherent Slough -Texture (Sharri-wound Skin Appearance) Assessed, Scarring -Moisture (Sharri-wound Skin Appearance Assessed,Dry/ ) Scaly -Color (Sharri-wound Skin Appearance) Assessed, Hemosiderin Staining -Temperature (Sharri-wound Skin No Abnormality Appearance) (Pt Warm) -Tenderness on Palpation (Sharri-wound No Skin Appearance) -Ulcer Cleansing Rinsed/ Irrigated with Saline -Foul Odor after Cleansing No -Anesthetic Used 4% Lidocaine Solution [Edema Assessment] -Lower Limb Edema Present Yes -Right Calf (cm) 41.8 -Right Ankle (cm) 27.2 -Left Calf (cm) 42.2 -Left Ankle (cm) 26.6 WC - Nurse 2 - General Ulcer CM Notes Start: 01/15/19 15:24 Freq: Status: Active Protocol: Activity Type Activity Date Activity User E-Sign Co-Sign Detail Recorded Client Recorded Date Recorded By Document 01/29/19 14:26 AN [id number] 01/29/19 14:36 AN 01/29/19 14:26 Wound Center Nurse 2 [Procedure/Treatment] #10- R MCDOWELL -Time 14:34 -Correct Patient Yes -Correct Side, Site, Position Yes -Correct Procedure Yes -Procedure Performed Yes -Type of Procedure Debridement -Clinical Debridement Subcutaneous -Post Debridement Size (cm) - Length 1.5 -Post Debridement Size (cm) - Width 1.2 -Post Debridement Size (cm) - Depth 0.1 -Total Square Cm 1.80 -Wound/Ulcer Outcome Not Healed -Ulcer Cleansing Rinsed/ Irrigated with Saline -Foul Odor after Cleansing No -Bioengineered Tissue No -Bleeding Controlled with Pressure -Treatment Response Procedure Tolerated Well #8- L MCDOWELL -Time 14:34 -Correct Patient Yes -Correct Side, Site, Position Yes -Correct Procedure Yes -Procedure Performed Yes -Type of Procedure Debridement -Clinical Debridement Subcutaneous -Post Debridement Size (cm) - Length 1.4 -Post Debridement Size (cm) - Width 1.4 -Post Debridement Size (cm) - Depth 0.1 -Total Square Cm 1.96 -Wound/Ulcer Outcome Not Healed -Ulcer Cleansing Rinsed/ Irrigated with Saline -Foul Odor after Cleansing No -Bioengineered Tissue No -Bleeding Controlled with Pressure -Treatment Response Procedure Tolerated Well #7- RT MEDIAL LEG/CALF CLUSTER -Time 14:35 -Correct Patient Yes -Correct Side, Site, Position Yes -Correct Procedure Yes -Procedure Performed Yes -Type of Procedure Debridement -Clinical Debridement Subcutaneous -Post Debridement Size (cm) - Length 2.4 -Post Debridement Size (cm) - Width 2.6 -Post Debridement Size (cm) - Depth 0.1 -Total Square Cm 6.24 -Wound/Ulcer Outcome Not Healed -Ulcer Cleansing Rinsed/ Irrigated with Saline -Foul Odor after Cleansing No -Bioengineered Tissue No -Bleeding Controlled with Pressure -Treatment Response Procedure Tolerated Well [See Physician Procedure note for Specifics] Pain Scale: 0-10 Numeric [Pain] -Is Patient Pain Free? Yes Musculoskeletal: No Tenderness to Palpation of Joints or Extremities, Muscle Wasting Neurological: - - Lack of epicritic sensation light touch consistent with neuropathy bilateral lower extremities Psych/Mental Status: Normal Affect, Appropriate Debridement Note Post-Debridement Measurements/Treatment WC - Nurse 2 - General Ulcer CM Notes Start: 01/15/19 15:24 Freq: Status: Active Protocol: Activity Type Activity Date Activity User E-Sign Co-Sign Detail Recorded Client Recorded Date Recorded By Document 01/15/19 16:16 [id number] 01/15/19 16:19 Document 01/22/19 14:15 JF [id number] 01/22/19 14:19 Document 01/29/19 14:26 AN [id number] 01/29/19 14:36 AN 01/15/19 01/22/19 01/29/19 16:16 14:15 14:26 Wound Center Nurse 2 #10- R MCDOWELL -Time 14:34 -Correct Patient Yes -Correct Side, Site, Position Yes -Correct Procedure Yes -Procedure Performed Yes -Type of Procedure Debridement -Clinical Debridement Subcutaneous -Post Debridement Size (cm) - Length 1.5 -Post Debridement Size (cm) - Width 1.2 -Post Debridement Size (cm) - Depth 0.1 -Total Square Cm 1.80 -Wound/Ulcer Outcome Not Healed -Ulcer Cleansing Rinsed/ Irrigated with Saline -Foul Odor after Cleansing No -Bioengineered Tissue No -Bleeding Controlled with Pressure -Treatment Response Procedure Tolerated Well #9 LT CALF CLUSTER -Time 14:17 -Correct Patient Yes -Correct Side, Site, Position Yes -Correct Procedure Yes -Procedure Performed Yes -Type of Procedure Debridement -Clinical Debridement Subcutaneous -Post Debridement Size (cm) - Length 6.3 -Post Debridement Size (cm) - Width 2 -Post Debridement Size (cm) - Depth 0.1 -Total Square Cm 12.6 -Wound/Ulcer Outcome Not Healed -Ulcer Cleansing Rinsed/ Irrigated with Saline -Foul Odor after Cleansing No -Bioengineered Tissue No -Bleeding Controlled with Pressure -Offloading No -Treatment Response Procedure Tolerated Well #8- L MCDOWELL -Time 16:16 14:17 14:34 -Correct Patient Yes Yes Yes -Correct Side, Site, Position Yes Yes Yes -Correct Procedure Yes Yes Yes -Procedure Performed Yes Yes Yes -Type of Procedure Debridement Debridement Debridement -Clinical Debridement Subcutaneous Subcutaneous Subcutaneous -Post Debridement Size (cm) - Length 0.8 1.8 1.4 -Post Debridement Size (cm) - Width 0.2 1.8 1.4 -Post Debridement Size (cm) - Depth 0.1 0.1 0.1 -Total Square Cm 0.16 3.24 1.96 -Wound/Ulcer Outcome Not Healed Not Healed Not Healed -Ulcer Cleansing Rinsed/ Rinsed/ Rinsed/ Irrigated with Irrigated with Irrigated with Saline Saline Saline -Foul Odor after Cleansing No No No -Bioengineered Tissue No No No -Bleeding Controlled with Pressure Pressure Pressure -Offloading No No -Treatment Response Procedure Procedure Procedure Tolerated Well Tolerated Well Tolerated Well #7- RT MEDIAL LEG/CALF CLUSTER -Time 16:16 14:18 14:35 -Correct Patient Yes Yes Yes -Correct Side, Site, Position Yes Yes Yes -Correct Procedure Yes Yes Yes -Procedure Performed Yes Yes Yes -Type of Procedure Debridement Debridement Debridement -Clinical Debridement Subcutaneous Subcutaneous Subcutaneous -Post Debridement Size (cm) - Length 3.8 2.3 2.4 -Post Debridement Size (cm) - Width 5.4 2.4 2.6 -Post Debridement Size (cm) - Depth 0.1 0.1 0.1 -Total Square Cm 20.52 5.52 6.24 -Wound/Ulcer Outcome Not Healed Not Healed Not Healed -Ulcer Cleansing Rinsed/ Rinsed/ Rinsed/ Irrigated with Irrigated with Irrigated with Saline Saline Saline -Foul Odor after Cleansing No No -Bioengineered Tissue No No No -Bleeding Controlled with Pressure Pressure Pressure -Offloading No No -Treatment Response Procedure Procedure Procedure Tolerated Well Tolerated Well Tolerated Well Pain Scale: 0-10 Numeric Is Patient Pain Free? Yes Yes Yes Wound debrided: anterior leg Laterality: Right Wound Grade/Stage: grade 1 Type of Debridement: Excisional debridement Anesthesia Used: 5% Lidocaine Gel Depth: in the subcutaneous layer Percentage of wound debrided: 100 Instrument Used: #15 blade Tissue Removed: fibrous, devitalized subcutaneous, biofilm, slough Severity: Fat Layer Exposed Amount of bleeding with debridement: Mild Bleeding Controlled with: Pressure Patient tolerated procedure well - Additional Wound Wound debrided: leg Laterality: Left Wound Grade/Stage: grade 1 Type of Debridement: Excisional debridement Anesthesia Used: 5% Lidocaine Gel Depth: in the subcutaneous layer Percentage of wound debrided: 100 Instrument Used: #15 blade Tissue Removed: fibrous, devitalized subcutaneous, biofilm, slough Severity: Fat Layer Exposed Amount of bleeding with debridement: Mild Bleeding Controlled with: Pressure Patient tolerated procedure: Patient tolerated procedure well - Additional Wound Wound debrided: posterior leg Laterality: Left Wound Grade/Stage: grade 1 Type of Debridement: Excisional debridement Anesthesia Used: 5% Lidocaine Gel Depth: in the subcutaneous layer Percentage of wound debrided: 100 Instrument Used: #15 blade Tissue Removed: fibrous, devitalized subcutaneous, biofilm, slough Severity: Fat Layer Exposed Amount of bleeding with debridement: Mild Bleeding Controlled with: Pressure Patient tolerated procedure: Patient tolerated procedure well Assessment/Plan Active Problems Ulcer of right lower extremity with fat layer exposed (Chronic) Ulcer of left lower extremity with fat layer exposed (Chronic) Venous insufficiency of both lower extremities (Chronic) Diabetic neuropathy associated with type 2 diabetes mellitus (Chronic) Assessment: See diagnoses Plan: I reviewed and discussed his case today. I recommend updating the diagnostic data with CBC and CMP (no gross abnormalities), hemoglobin A1c (7.4 %), and prealbumin (24). This was reviewed as noted. He continues work with his primary care physician on improvement. Subcutaneous excisional debridement was performed as noted in the clinical panel to both ulcer sites. A dressing of hydrogel and Adaptic was applied and I recommended changing this daily. To continue with compression management to keep edema under control with Tubigrip's. I do recommend periodic elevation and to avoid idle standing and sitting. He is reassured no local signs of infection are noted and I do not recommend additional antibiotics. It is also noted he is on anticoagulation medication Eliquis and he is at risk for continued skin discontinuities. I recommend updating his noninvasive vascular arterial studies and updated venous Doppler with reflux evaluation were provided. His previous venous intervention was also noted and I recommend record request. Nutritional supplementation was recommended to optimize healing. To continue prescribed [place] supplementation; I recommended using half a pack a day and to monitor glucose changes closely. I also recommend application of advanced wound healing product, epi-fix, to optimize timely healing. The indications, purpose, and anticipated healing time management were discussed in detail. Prior authorization will be initiated. He is amendable to proceed after insurance coverage is confirmed. This is medically necessary for limb salvage. It is noted he is been undergoing standard comprehensive wound healing plan thus far. To keep pressure off of the sites by avoid laying directly on them I offered him offloading donut pillows. To return to the wound healing center 1 week or call sooner for any questions or concerns. I answered all his questions.
--- NOTE | 2019-01-31 08:48 | VDLE_ITS ---
Reason For Study: EDEMA RIGHT LEFT GSV is normal. CFV is compressible, spontaneous, phasic, CFV is compressible, spontaneous, phasic, competent, and demonstrates normal competent and demonstrates normal augmentation. augmentation. T/P Trunk is compressible. FV is compressible, spontaneous, phasic, PTV is compressible. competent and demonstrates normal LT PerV is compressible. augmentation. LEFT SFJ is partially compressible with POP V is compressible, spontaneous, phasic, echoes consistent with chronic DVT. competent and demonstrates normal There is a double left FV visualized with augmentation. partial compressibility. There are echoes T/P Trunk is compressible. consistent with ACUTE DVT on chronic. PTV is compressible. LEFT POP V is INCOMPETENT, compressible and RT PerV is compressible. fills with color. RT mid FV is partially compressible and has LEFT GSV at SFJ measures .5 x .5 cm and is bright echoes consistent with chronic DVT. competent and compressible. The remainder of the FV is compressible. LEFT GSV above knee is thick walled and RT POP V is partially compressible with calcified making it unable to assess for bright echoes consistent with chronic DVT. incompetency. RT T/P Trunk is partially compressible with LEFT GSV at knee measures .3 x .3 cm and is bright echoes consitent with chronic DVT. competent. RT GSV at SFJ measures .75 x .77 cm and is LEFT GSV below knee measures .4 x .4 cm and compressible and competent. is competent. RT GSV at thigh is thick walled and LEFT SSV at junction, measuring .5 x .7 cm, calcified, and unable to assess for is thick walled with echoes consistent with competency. chronic superficial thrombus. RT GSV below knee is not visualized. LEFT SSV is INCOMPETENT for greater than .5 RT GSV accessories below knee are competent. sec. RT SSV at junction measures .6 x .6 cm and LEFT SSV accessories are INCOMPETENT fro is compressible. greater than .54 sec. RT SSV prox is thick walled and compressible, measuring .5 X .7 cm and is INCOMPETENT for greater than .5 sec. RT SSV accessories are compressible and INCOMPETENT. Procedure Exam performed in department. A preliminary report was called and/or faxed to [facility]. Arterial study was unable to be performed due to acute DVT in LEFT FV. Interpretation Summary Chronic venous changes are noted in the right mid-femoral vein, popliteal vein, and tibio-peroneal trunk, which are partially compressible and demonstrate bright intraluminal echogenicity. The remainder of the right lower extremity deep venous system is patent and compressible. The left femoral vein appears to be duplicate, and one of the duplicates demonstrates both acute and chronic deep vein thrombosis. Chronic venous changes are noted in the left sapheno-femoral junction. The remainder of the left lower extremity deep venous system is patent and compressible. Valvular competence appears intact within the proximal deep venous system on the right . The left popliteal vein is incompetent. The left common femoral vein is competent. Sapheno-femoral junctions are competent bilaterally. Chronic venous changes are noted in the right great saphenous vein in the thigh, which could not be assessed for competence. The right great saphenous vein could not be visualized below the knee. Chronic venous changes are noted in the left great saphenous vein in the thigh, which could not be assessed for competence. The left great saphenous vein at and below the knee is patent and competent. The right small saphenous vein is patent and incompetent, and demonstrates chronic vein wall thickening. The left small saphenous vein is incompetent and demonstrates chronic venous changes. Small saphenous veins demonstrate incompetent accessory saphenous veins bilaterally. Ordering Physician: Diane Rebollar Referring Physician: ELTICIA HUSTON Performed By: Nicky Walker, ELIUD, RVT
[2019-02-05 13:11] VITALS: BP 135/74; PULSE 63; RESP 16; TEMP 36.9; BMI 35.3
--- NOTE | 2019-02-05 14:35 | PCM.WC.PN ---
(1) Ulcer of right lower extremity with fat layer exposed Status: Chronic Current Visit: Yes Code(s): L97.912 - Non-pressure chronic ulcer of unspecified part of right lower leg with fat layer exposed (2) Ulcer of left lower extremity with fat layer exposed Status: Chronic Current Visit: Yes Code(s): L97.922 - Non-pressure chronic ulcer of unspecified part of left lower leg with fat layer exposed (3) Malnutrition Status: Suspected Current Visit: Yes Code(s): E46 - Unspecified protein-calorie malnutrition (4) Edema of lower extremity Status: Chronic Current Visit: No Code(s): R60.0 - Localized edema (5) Venous insufficiency of both lower extremities Status: Chronic Current Visit: Yes Code(s): I87.2 - Venous insufficiency (chronic) (peripheral) (6) Diabetic neuropathy associated with type 2 diabetes mellitus Status: Chronic Current Visit: Yes Code(s): E11.40 - Type 2 diabetes mellitus with diabetic neuropathy, unspecified (7) Peripheral vascular disease Status: Suspected Current Visit: Yes Code(s): I73.9 - Peripheral vascular disease, unspecified Type of Wound Date of Service: 02/05/19 Chief Complaint: right and left leg ulcers History of Wound: 78-year-old male with diabetes, history of blood clots has Sonya filters, venous insufficiency presents with open ulcers to the right and left legs. He is also noted to both legs. He denies redness or odor. He did have previous vein ablations performed. He denies current fever, chill, nausea, vomiting, shortness of breath or chest pain. He is with his today. He continues reduced Vernon nutritional supplementation and his blood sugar has stabilized. He was not able to get his arterial study completed due to his chronic blood clots. He continues on Eliquis. Progress of Wound: improving - Physical Exam Vital Signs Temp Pulse Resp BP 98.4 F 63 16 135/74 H 02/05/19 13:11 02/05/19 13:11 02/05/19 13:11 02/05/19 13:11 General: Alert, Oriented x3, Cooperative, No apparent distress Extremities: No cyanosis, Capillary Refill Less than 3 Seconds, No Calf Tenderness - Negative Jana and Sanford signs bilateral, Diminished Peripheral Pulses, Edema Skin: Ulcer/ Wound - No purulence, erythema, string, odor, infection. Peripheral skin is atrophic and hairless and with hyperpigmentation bilateral Wound Measurements and Assessment WC - Nurse 1 - General Ulcer Measurement Start: 01/15/19 15:24 Freq: Status: Active Protocol: Activity Type Activity Date Activity User E-Sign Co-Sign Detail Recorded Client Recorded Date Recorded By Document 02/05/19 13:11 [facility] [id number] 02/05/19 13:23 [facility] 02/05/19 13:11 Wound Center Nurse 1 [Ulcer Assessment] #11- R CALF -Combined with other wound No -Current Size (cm) - Length 1.5 -Current Size (cm) - Width 0.8 -Current Size (cm) - Depth 0.1 -Total Square Cm 1.20 -Date of Last Picture (Recall this 02/05/19 field) -Photo Taken Yes -Epithelialization None Present -Tunneling No -Undermining/Tunneling No -Circular Undermining No -Exudate Amt Small -Exudate Type Serosanguineous -Wound Margin Flat & Intact -Granulation Amt Large (67-100%) -Granulation Quality Red -Slough/Fibrin No -Necrosis Amt None Present (0 %) -Texture (Sharri-wound Skin Appearance) Assessed -Moisture (Sharri-wound Skin Appearance Assessed ) -Color (Sharri-wound Skin Appearance) Assessed, Hemosiderin Staining -Temperature (Sharri-wound Skin No Abnormality Appearance) (Pt Warm) -Tenderness on Palpation (Sharri-wound No Skin Appearance) -Ulcer Cleansing Rinsed/ Irrigated with Saline -Foul Odor after Cleansing No -Anesthetic Used 4% Lidocaine Solution #10- R MCDOWELL -Combined with other wound No -Current Size (cm) - Length 0.1 -Current Size (cm) - Width 0.1 -Current Size (cm) - Depth 0.1 -Total Square Cm 0.01 -Photo Taken No -Epithelialization Medium 34-66% -Tunneling No -Undermining/Tunneling No -Circular Undermining No -Exudate Amt Small -Exudate Type Serosanguineous -Wound Margin Flat & Intact -Granulation Amt Large (67-100%) -Granulation Quality Red -Slough/Fibrin No -Necrosis Amt None Present (0 %) -Texture (Sharri-wound Skin Appearance) Assessed, Scarring -Moisture (Sharri-wound Skin Appearance Assessed ) -Color (Sharri-wound Skin Appearance) Assessed, Hemosiderin Staining -Temperature (Sharri-wound Skin No Abnormality Appearance) (Pt Warm) -Tenderness on Palpation (Sharri-wound No Skin Appearance) -Ulcer Cleansing Rinsed/ Irrigated with Saline -Foul Odor after Cleansing No -Anesthetic Used 4% Lidocaine Solution #8- L MCDOWELL -Combined with other wound No -Current Size (cm) - Length 0.8 -Current Size (cm) - Width 1.8 -Current Size (cm) - Depth 0.1 -Total Square Cm 1.44 -Photo Taken No -Epithelialization Small 1-33% -Tunneling No -Undermining/Tunneling No -Circular Undermining No -Exudate Amt Small -Exudate Type Serosanguineous -Wound Margin Flat & Intact -Granulation Amt Large (67-100%) -Granulation Quality Red -Slough/Fibrin No -Necrosis Amt None Present (0 %) -Texture (Sharri-wound Skin Appearance) Assessed, Scarring -Moisture (Sharri-wound Skin Appearance Assessed ) -Color (Sharri-wound Skin Appearance) Assessed, Hemosiderin Staining -Temperature (Sharri-wound Skin No Abnormality Appearance) (Pt Warm) -Tenderness on Palpation (Sharri-wound No Skin Appearance) -Ulcer Cleansing Rinsed/ Irrigated with Saline -Foul Odor after Cleansing No -Anesthetic Used 4% Lidocaine Solution #7- RT MEDIAL LEG/CALF CLUSTER -Combined with other wound No -Current Size (cm) - Length 2.8 -Current Size (cm) - Width 2.4 -Current Size (cm) - Depth 0.1 -Total Square Cm 6.72 -Photo Taken No -Epithelialization None Present -Tunneling No -Undermining/Tunneling No -Circular Undermining No -Exudate Amt Medium -Exudate Type Serosanguineous -Wound Margin Flat & Intact -Granulation Amt Medium (34-66%) -Granulation Quality Red -Slough/Fibrin Yes -Necrosis Amt Medium (34-66%) -Necrotic Tissue Type Adherent Slough -Texture (Sharri-wound Skin Appearance) Assessed, Scarring -Moisture (Sharri-wound Skin Appearance Assessed ) -Color (Sharri-wound Skin Appearance) Assessed, Hemosiderin Staining -Temperature (Sharri-wound Skin No Abnormality Appearance) (Pt Warm) -Tenderness on Palpation (Sharri-wound No Skin Appearance) -Ulcer Cleansing Rinsed/ Irrigated with Saline -Foul Odor after Cleansing No -Anesthetic Used 4% Lidocaine Solution [Edema Assessment] -Lower Limb Edema Present Yes -Right Calf (cm) 42.6 -Right Ankle (cm) 26.7 -Left Calf (cm) 42.7 -Left Ankle (cm) 27 WC - Nurse 2 - General Ulcer CM Notes Start: 01/15/19 15:24 Freq: Status: Active Protocol: Activity Type Activity Date Activity User E-Sign Co-Sign Detail Recorded Client Recorded Date Recorded By Document 02/05/19 14:25 AN [id number] 02/05/19 14:30 AN 02/05/19 14:25 Wound Center Nurse 2 [Procedure/Treatment] #11- R CALF -Time 14:28 -Correct Patient Yes -Correct Side, Site, Position Yes -Correct Procedure Yes -Procedure Performed Yes -Type of Procedure Debridement -Clinical Debridement Subcutaneous -Post Debridement Size (cm) - Length 1.6 -Post Debridement Size (cm) - Width 0.9 -Post Debridement Size (cm) - Depth 0.1 -Total Square Cm 1.44 -Wound/Ulcer Outcome Not Healed -Bioengineered Tissue Yes -Type of bioengineered Tissue EPIFIX -Bleeding Controlled with Pressure -Treatment Response Procedure Tolerated Well #10- R MCDOWELL -Time 14:28 -Correct Patient Yes -Correct Side, Site, Position Yes -Correct Procedure Yes -Procedure Performed Yes -Type of Procedure Debridement -Clinical Debridement Subcutaneous -Post Debridement Size (cm) - Length 0.2 -Post Debridement Size (cm) - Width 0.2 -Post Debridement Size (cm) - Depth 0.1 -Total Square Cm 0.04 -Wound/Ulcer Outcome Not Healed -Ulcer Cleansing Rinsed/ Irrigated with Saline -Foul Odor after Cleansing No -Bioengineered Tissue Yes -Type of bioengineered Tissue EPIFIX -Bleeding Controlled with Pressure -Offloading No -Treatment Response Procedure Tolerated Well #8- L MCDOWELL -Time 14:28 -Correct Patient Yes -Correct Side, Site, Position Yes -Correct Procedure Yes -Procedure Performed Yes -Type of Procedure Debridement -Clinical Debridement Subcutaneous -Post Debridement Size (cm) - Length 0.9 -Post Debridement Size (cm) - Width 1.9 -Post Debridement Size (cm) - Depth 0.1 -Total Square Cm 1.71 -Wound/Ulcer Outcome Not Healed -Ulcer Cleansing Rinsed/ Irrigated with Saline -Foul Odor after Cleansing No -Bioengineered Tissue Yes -Type of bioengineered Tissue EPIFIX -Bleeding Controlled with Pressure -Treatment Response Procedure Tolerated Well #7- RT MEDIAL LEG/CALF CLUSTER -Time 14:29 -Correct Patient Yes -Correct Side, Site, Position Yes -Correct Procedure Yes -Procedure Performed Yes -Type of Procedure Debridement -Clinical Debridement Subcutaneous -Post Debridement Size (cm) - Length 2.9 -Post Debridement Size (cm) - Width 2.5 -Post Debridement Size (cm) - Depth 0.1 -Total Square Cm 7.25 -Wound/Ulcer Outcome Not Healed -Ulcer Cleansing Rinsed/ Irrigated with Saline -Foul Odor after Cleansing No -Bioengineered Tissue Yes -Type of bioengineered Tissue EPIFIX -Bleeding Controlled with Pressure -Offloading No -Treatment Response Procedure Tolerated Well [See Physician Procedure note for Specifics] Pain Scale: 0-10 Numeric [Pain] -Is Patient Pain Free? Yes Musculoskeletal: No Tenderness to Palpation of Joints or Extremities, Muscle Wasting Neurological: Sensory exam intact to light touch and pain Psych/Mental Status: Normal Affect, Appropriate Debridement Note Post-Debridement Measurements/Treatment WC - Nurse 2 - General Ulcer CM Notes Start: 01/15/19 15:24 Freq: Status: Active Protocol: Activity Type Activity Date Activity User E-Sign Co-Sign Detail Recorded Client Recorded Date Recorded By Document 01/15/19 16:16 [id number] 01/15/19 16:19 Document 01/22/19 14:15 [id number] 01/22/19 14:19 Document 01/29/19 14:26 AN [id number] 01/29/19 14:36 AN Document 02/05/19 14:25 AN [id number] 02/05/19 14:30 AN 01/15/19 01/22/19 01/29/19 16:16 14:15 14:26 Wound Center Nurse 2 #11- R CALF -Time -Correct Patient -Correct Side, Site, Position -Correct Procedure -Procedure Performed -Type of Procedure -Clinical Debridement -Post Debridement Size (cm) - Length -Post Debridement Size (cm) - Width -Post Debridement Size (cm) - Depth -Total Square Cm -Wound/Ulcer Outcome -Bioengineered Tissue -Type of bioengineered Tissue -Bleeding Controlled with -Treatment Response #10- R MCDOWELL -Time 14:34 -Correct Patient Yes -Correct Side, Site, Position Yes -Correct Procedure Yes -Procedure Performed Yes -Type of Procedure Debridement -Clinical Debridement Subcutaneous -Post Debridement Size (cm) - Length 1.5 -Post Debridement Size (cm) - Width 1.2 -Post Debridement Size (cm) - Depth 0.1 -Total Square Cm 1.80 -Wound/Ulcer Outcome Not Healed -Ulcer Cleansing Rinsed/ Irrigated with Saline -Foul Odor after Cleansing No -Bioengineered Tissue No -Type of bioengineered Tissue -Bleeding Controlled with Pressure -Offloading -Treatment Response Procedure Tolerated Well #9 LT CALF CLUSTER -Time 14:17 -Correct Patient Yes -Correct Side, Site, Position Yes -Correct Procedure Yes -Procedure Performed Yes -Type of Procedure Debridement -Clinical Debridement Subcutaneous -Post Debridement Size (cm) - Length 6.3 -Post Debridement Size (cm) - Width 2 -Post Debridement Size (cm) - Depth 0.1 -Total Square Cm 12.6 -Wound/Ulcer Outcome Not Healed -Ulcer Cleansing Rinsed/ Irrigated with Saline -Foul Odor after Cleansing No -Bioengineered Tissue No -Bleeding Controlled with Pressure -Offloading No -Treatment Response Procedure Tolerated Well #8- L MCDOWELL -Time 16:16 14:17 14:34 -Correct Patient Yes Yes Yes -Correct Side, Site, Position Yes Yes Yes -Correct Procedure Yes Yes Yes -Procedure Performed Yes Yes Yes -Type of Procedure Debridement Debridement Debridement -Clinical Debridement Subcutaneous Subcutaneous Subcutaneous -Post Debridement Size (cm) - Length 0.8 1.8 1.4 -Post Debridement Size (cm) - Width 0.2 1.8 1.4 -Post Debridement Size (cm) - Depth 0.1 0.1 0.1 -Total Square Cm 0.16 3.24 1.96 -Wound/Ulcer Outcome Not Healed Not Healed Not Healed -Ulcer Cleansing Rinsed/ Rinsed/ Rinsed/ Irrigated with Irrigated with Irrigated with Saline Saline Saline -Foul Odor after Cleansing No No No -Bioengineered Tissue No No No -Type of bioengineered Tissue -Bleeding Controlled with Pressure Pressure Pressure -Offloading No No -Treatment Response Procedure Procedure Procedure Tolerated Well Tolerated Well Tolerated Well #7- RT MEDIAL LEG/CALF CLUSTER -Time 16:16 14:18 14:35 -Correct Patient Yes Yes Yes -Correct Side, Site, Position Yes Yes Yes -Correct Procedure Yes Yes Yes -Procedure Performed Yes Yes Yes -Type of Procedure Debridement Debridement Debridement -Clinical Debridement Subcutaneous Subcutaneous Subcutaneous -Post Debridement Size (cm) - Length 3.8 2.3 2.4 -Post Debridement Size (cm) - Width 5.4 2.4 2.6 -Post Debridement Size (cm) - Depth 0.1 0.1 0.1 -Total Square Cm 20.52 5.52 6.24 -Wound/Ulcer Outcome Not Healed Not Healed Not Healed -Ulcer Cleansing Rinsed/ Rinsed/ Rinsed/ Irrigated with Irrigated with Irrigated with Saline Saline Saline -Foul Odor after Cleansing No No -Bioengineered Tissue No No No -Type of bioengineered Tissue -Bleeding Controlled with Pressure Pressure Pressure -Offloading No No -Treatment Response Procedure Procedure Procedure Tolerated Well Tolerated Well Tolerated Well Pain Scale: 0-10 Numeric Is Patient Pain Free? Yes Yes Yes 02/05/19 14:25 Wound Center Nurse 2 #11- R CALF -Time 14:28 -Correct Patient Yes -Correct Side, Site, Position Yes -Correct Procedure Yes -Procedure Performed Yes -Type of Procedure Debridement -Clinical Debridement Subcutaneous -Post Debridement Size (cm) - Length 1.6 -Post Debridement Size (cm) - Width 0.9 -Post Debridement Size (cm) - Depth 0.1 -Total Square Cm 1.44 -Wound/Ulcer Outcome Not Healed -Bioengineered Tissue Yes -Type of bioengineered Tissue EPIFIX -Bleeding Controlled with Pressure -Treatment Response Procedure Tolerated Well #10- R MCDOWELL -Time 14:28 -Correct Patient Yes -Correct Side, Site, Position Yes -Correct Procedure Yes -Procedure Performed Yes -Type of Procedure Debridement -Clinical Debridement Subcutaneous -Post Debridement Size (cm) - Length 0.2 -Post Debridement Size (cm) - Width 0.2 -Post Debridement Size (cm) - Depth 0.1 -Total Square Cm 0.04 -Wound/Ulcer Outcome Not Healed -Ulcer Cleansing Rinsed/ Irrigated with Saline -Foul Odor after Cleansing No -Bioengineered Tissue Yes -Type of bioengineered Tissue EPIFIX -Bleeding Controlled with Pressure -Offloading No -Treatment Response Procedure Tolerated Well #9 LT CALF CLUSTER -Time -Correct Patient -Correct Side, Site, Position -Correct Procedure -Procedure Performed -Type of Procedure -Clinical Debridement -Post Debridement Size (cm) - Length -Post Debridement Size (cm) - Width -Post Debridement Size (cm) - Depth -Total Square Cm -Wound/Ulcer Outcome -Ulcer Cleansing -Foul Odor after Cleansing -Bioengineered Tissue -Bleeding Controlled with -Offloading -Treatment Response #8- L MCDOWELL -Time 14:28 -Correct Patient Yes -Correct Side, Site, Position Yes -Correct Procedure Yes -Procedure Performed Yes -Type of Procedure Debridement -Clinical Debridement Subcutaneous -Post Debridement Size (cm) - Length 0.9 -Post Debridement Size (cm) - Width 1.9 -Post Debridement Size (cm) - Depth 0.1 -Total Square Cm 1.71 -Wound/Ulcer Outcome Not Healed -Ulcer Cleansing Rinsed/ Irrigated with Saline -Foul Odor after Cleansing No -Bioengineered Tissue Yes -Type of bioengineered Tissue EPIFIX -Bleeding Controlled with Pressure -Offloading -Treatment Response Procedure Tolerated Well #7- RT MEDIAL LEG/CALF CLUSTER -Time 14:29 -Correct Patient Yes -Correct Side, Site, Position Yes -Correct Procedure Yes -Procedure Performed Yes -Type of Procedure Debridement -Clinical Debridement Subcutaneous -Post Debridement Size (cm) - Length 2.9 -Post Debridement Size (cm) - Width 2.5 -Post Debridement Size (cm) - Depth 0.1 -Total Square Cm 7.25 -Wound/Ulcer Outcome Not Healed -Ulcer Cleansing Rinsed/ Irrigated with Saline -Foul Odor after Cleansing No -Bioengineered Tissue Yes -Type of bioengineered Tissue EPIFIX -Bleeding Controlled with Pressure -Offloading No -Treatment Response Procedure Tolerated Well Pain Scale: 0-10 Numeric Is Patient Pain Free? Yes Wound debrided: anterior leg Laterality: Left Wound Grade/Stage: grade 1 Type of Debridement: Excisional debridement Anesthesia Used: 5% Lidocaine Gel Depth: in the subcutaneous layer Percentage of wound debrided: 100 Instrument Used: #15 blade Tissue Removed: fibrous, devitalized subcutaneous, biofilm, slough Severity: Fat Layer Exposed Amount of bleeding with debridement: Mild Bleeding Controlled with: Pressure Patient tolerated procedure well - Additional Wound Wound debrided: medial leg Laterality: Right - g Wound Grade/Stage: grade 1 Type of Debridement: Excisional debridement Anesthesia Used: 5% Lidocaine Gel Depth: in the subcutaneous layer Percentage of wound debrided: 100 Instrument Used: #15 blade Tissue Removed: fibrous, devitalized subcutaneous, biofilm, slough Severity: Fat Layer Exposed Amount of bleeding with debridement: Mild Bleeding Controlled with: Pressure Patient tolerated procedure: Patient tolerated procedure well - Additional Wound Wound debrided: posterior leg Laterality: Right Wound Grade/Stage: grade 1 Type of Debridement: Excisional debridement Anesthesia Used: 5% Lidocaine Gel Depth: in the subcutaneous layer Percentage of wound debrided: 100 Instrument Used: #15 blade Tissue Removed: fibrous, devitalized subcutaneous, biofilm, slough Severity: Fat Layer Exposed Amount of bleeding with debridement: Mild Bleeding Controlled with: Pressure Patient tolerated procedure: Patient tolerated procedure well - Additional Wound Wound debrided: anterior leg Laterality: Right Wound Grade/Stage: grade 1 Type of Debridement: Excisional debridement Anesthesia Used: 5% Lidocaine Gel Depth: in the subcutaneous layer Percentage of wound debrided: 100 Instrument Used: #15 blade Tissue Removed: fibrous, devitalized subcutaneous, biofilm, slough Severity: Fat Layer Exposed Amount of bleeding with debridement: Mild Bleeding Controlled with: Pressure Patient tolerated procedure: Patient tolerated procedure well Assessment/Plan Active Problems Ulcer of right lower extremity with fat layer exposed (Chronic) Ulcer of left lower extremity with fat layer exposed (Chronic) Venous insufficiency of both lower extremities (Chronic) Diabetic neuropathy associated with type 2 diabetes mellitus (Chronic) Assessment: See diagnoses Plan: I reviewed and discussed his case today. I recommend updating the diagnostic data with CBC and CMP (no gross abnormalities), hemoglobin A1c (7.4%), and prealbumin (24). This was reviewed as noted. He continues work with his primary care physician on improvement. Subcutaneous excisional debridement was performed as noted in the clinical panel to both ulcer sites. Advanced wound healing product, epi fix was applied today according to standard protocol after verbal consent was obtained. This was secured in place with a wound veil and Steri-Strips. This is medically necessary for limb salvage. The indication, purpose, and anticipated healing time management were discussed in detail with the patient. He tolerated this well. To continue with compression management to keep edema under control with Tubigrip's. I do recommend periodic elevation and to avoid idle standing and sitting. He is reassured no local signs of infection are noted and I do not recommend additional antibiotics. It is also noted he is on anticoagulation medication Eliquis and he is at risk for continued skin discontinuities. I recommend updating his noninvasive vascular arterial studies and updated venous Doppler with reflux evaluation were provided. He relates he did obtain the updated venous studies but not arterial. I do not see the results results electronically and these will be requested. Nutritional supplementation was recommended to optimize healing. To continue prescribed Vernon supplementation; I recommended using half a pack a day and to monitor glucose changes closely. To keep pressure off of the sites by avoid laying directly on them I offered him offloading donut pillows. To return to the wound healing center 1 week or call sooner for any questions or concerns. I answered all his questions.
[2019-02-12 14:18] VITALS: BP 136/68; PULSE 71; RESP 18; TEMP 36.4; BMI 35.3
--- NOTE | 2019-02-12 15:32 | PN.PCM_ITS ---
(1) Ulcer of right lower extremity with fat layer exposed Status: Chronic Code(s): L97.912 - Non-pressure chronic ulcer of unspecified part of right lower leg with fat layer exposed (2) Ulcer of left lower extremity with fat layer exposed Status: Resolved Code(s): L97.922 - Non-pressure chronic ulcer of unspecified part of left lower leg with fat layer exposed (3) Malnutrition Status: Suspected Code(s): E46 - Unspecified protein-calorie malnutrition (4) Edema of lower extremity Status: Chronic Code(s): R60.0 - Localized edema (5) Venous insufficiency of both lower extremities Status: Chronic Code(s): I87.2 - Venous insufficiency (chronic) (peripheral) (6) Diabetic neuropathy associated with type 2 diabetes mellitus Status: Chronic Code(s): E11.40 - Type 2 diabetes mellitus with diabetic neuropathy, unspecified (7) Peripheral vascular disease Status: Suspected Code(s): I73.9 - Peripheral vascular disease, unspecified Type of Wound Date of Service: 02/12/19 Chief Complaint: right leg ulcers History of Wound: 78-year-old male with diabetes, history of blood clots has Stanton filters, venous insufficiency presents with open ulcers to the right leg. He is also noted to both legs. He denies redness or odor. He did have previous vein ablations performed. He denies current fever, chill, nausea, vomiting, shortness of breath or chest pain. He is with his today. He continues reduced Vernon nutritional supplementation and his blood sugar has stabilized. He has acute and chronic deep venous thromboses. He continues on Eliquis. Progress of Wound: improving right. Healed left - Physical Exam Vital Signs Temp Pulse Resp BP 97.5 F L 71 18 136/68 H 02/12/19 14:18 02/12/19 14:18 02/12/19 14:18 02/12/19 14:18 General: Alert, Oriented x3, Cooperative, No apparent distress Extremities: No cyanosis, Capillary Refill Less than 3 Seconds, No Calf Tenderness - Negative Jana and Sanford sign bilateral, Diminished Peripheral Pulses, Edema Skin: Ulcer/ Wound - No purulence, erythema, streaking, odor, infection. Peripheral skin is hairless and atrophic. There is full epithelialization noted at the previous ulcer site on the left lower extremity. Wound Measurements and Assessment WC - Nurse 1 - General Ulcer Measurement Start: 01/15/19 15:24 Freq: Status: Active Protocol: Activity Type Activity Date Activity User E-Sign Co-Sign Detail Recorded Client Recorded Date Recorded By Document 02/12/19 14:18 JF [id number] 02/12/19 14:29 ROWDY 02/12/19 14:18 Wound Center Nurse 1 [Ulcer Assessment] #11- R CALF -Combined with other wound No -Current Size (cm) - Length 1.2 -Current Size (cm) - Width 1.5 -Current Size (cm) - Depth 0.2 -Total Square Cm 1.80 -Photo Taken No -Epithelialization Small 1-33% -Tunneling No -Undermining/Tunneling No -Circular Undermining No -Exudate Amt Small -Exudate Type Serosanguineous -Wound Margin Flat & Intact -Granulation Amt Large (67-100%) -Granulation Quality Red -Slough/Fibrin Yes -Necrosis Amt Medium (34-66%) -Necrotic Tissue Type Adherent Slough -Structure Exposed N/A -Texture (Sharri-wound Skin Appearance) Assessed -Moisture (Sharri-wound Skin Appearance Assessed,Dry/ ) Scaly -Color (Sharri-wound Skin Appearance) Assessed, Hemosiderin Staining -Temperature (Sharri-wound Skin No Abnormality Appearance) (Pt Warm) -Tenderness on Palpation (Sharri-wound No Skin Appearance) -Ulcer Cleansing Wound Cleanser -Foul Odor after Cleansing No -Anesthetic Used 4% Lidocaine Solution #10- R MCDOWELL -Combined with other wound No -Current Size (cm) - Length 0.1 -Current Size (cm) - Width 0.1 -Current Size (cm) - Depth 0.1 -Total Square Cm 0.01 -Photo Taken No -Epithelialization Small 1-33% -Tunneling No -Undermining/Tunneling No -Circular Undermining No -Exudate Amt None Present -Wound Margin Flat & Intact -Granulation Amt Medium (34-66%) -Granulation Quality Red -Slough/Fibrin Yes -Necrosis Amt Small (1-33%) -Necrotic Tissue Type Adherent Slough -Structure Exposed N/A -Texture (Sharri-wound Skin Appearance) Assessed, Localized Edema -Moisture (Sharri-wound Skin Appearance Assessed,Dry/ ) Scaly -Color (Sharri-wound Skin Appearance) Assessed, Hemosiderin Staining -Temperature (Sharri-wound Skin No Abnormality Appearance) (Pt Warm) -Tenderness on Palpation (Sharri-wound No Skin Appearance) -Ulcer Cleansing Wound Cleanser -Foul Odor after Cleansing No -Anesthetic Used 4% Lidocaine Solution #8- L MCDOWELL -Combined with other wound No -Current Size (cm) - Length 0.3 -Current Size (cm) - Width 0.3 -Current Size (cm) - Depth 0.1 -Total Square Cm 0.09 -Photo Taken No -Epithelialization Small 1-33% -Tunneling No -Undermining/Tunneling No -Circular Undermining No -Exudate Amt None Present -Wound Margin Flat & Intact -Granulation Amt None Present (0 %) -Slough/Fibrin Yes -Necrosis Amt Large (67-100%) -Necrotic Tissue Type Adherent Slough -Structure Exposed N/A -Texture (Sharri-wound Skin Appearance) Assessed, Localized Edema -Moisture (Sharri-wound Skin Appearance Assessed,Dry/ ) Scaly -Color (Sharri-wound Skin Appearance) Assessed, Hemosiderin Staining -Temperature (Sharri-wound Skin No Abnormality Appearance) (Pt Warm) -Tenderness on Palpation (Sharri-wound No Skin Appearance) -Ulcer Cleansing Wound Cleanser -Foul Odor after Cleansing No -Anesthetic Used 4% Lidocaine Solution #7- RT MEDIAL LEG/CALF CLUSTER -Combined with other wound No -Current Size (cm) - Length 1.2 -Current Size (cm) - Width 1.5 -Current Size (cm) - Depth 0.2 -Total Square Cm 1.80 -Photo Taken No -Epithelialization Small 1-33% -Tunneling No -Undermining/Tunneling No -Circular Undermining No -Exudate Amt Small -Exudate Type Serosanguineous -Wound Margin Flat & Intact -Granulation Amt Medium (34-66%) -Granulation Quality [place] -Slough/Fibrin Yes -Necrosis Amt Small (1-33%) -Necrotic Tissue Type Adherent Slough -Structure Exposed N/A -Texture (Sharri-wound Skin Appearance) Assessed, Localized Edema -Moisture (Sharri-wound Skin Appearance Assessed,Dry/ ) Scaly -Color (Sharri-wound Skin Appearance) Assessed, Hemosiderin Staining -Temperature (Sharri-wound Skin No Abnormality Appearance) (Pt Warm) -Tenderness on Palpation (Sharri-wound No Skin Appearance) -Ulcer Cleansing Wound Cleanser -Foul Odor after Cleansing No -Anesthetic Used 4% Lidocaine Solution WC - Nurse 2 - General Ulcer CM Notes Start: 01/15/19 15:24 Freq: Status: Active Protocol: Activity Type Activity Date Activity User E-Sign Co-Sign Detail Recorded Client Recorded Date Recorded By Document 02/12/19 14:56 AN [id number] 02/12/19 15:02 AN 02/12/19 14:56 Wound Center Nurse 2 [Procedure/Treatment] #11- R CALF -Time 14:58 -Correct Patient Yes -Correct Side, Site, Position Yes -Correct Procedure Yes -Procedure Performed Yes -Type of Procedure Debridement -Clinical Debridement Subcutaneous -Post Debridement Size (cm) - Length 1.3 -Post Debridement Size (cm) - Width 1.6 -Post Debridement Size (cm) - Depth 0.2 -Total Square Cm 2.08 -Wound/Ulcer Outcome Amputation -Bioengineered Tissue Yes -Type of bioengineered Tissue EPIFIX -Treatment Response Procedure Tolerated Well #10- R MCDOWELL -Time 14:58 -Correct Patient Yes -Correct Side, Site, Position Yes -Correct Procedure Yes -Procedure Performed Yes -Type of Procedure Debridement -Clinical Debridement Subcutaneous -Post Debridement Size (cm) - Length 0.2 -Post Debridement Size (cm) - Width 0.2 -Post Debridement Size (cm) - Depth 0.1 -Total Square Cm 0.04 -Wound/Ulcer Outcome Not Healed -Bioengineered Tissue Yes -Type of bioengineered Tissue EPIFIX -Treatment Response Procedure Tolerated Well #7- RT MEDIAL LEG/CALF CLUSTER -Time 14:59 -Correct Patient Yes -Correct Side, Site, Position Yes -Correct Procedure Yes -Procedure Performed Yes -Type of Procedure Debridement -Clinical Debridement Subcutaneous -Post Debridement Size (cm) - Length 1.3 -Post Debridement Size (cm) - Width 1.6 -Post Debridement Size (cm) - Depth 0.2 -Total Square Cm 2.08 -Wound/Ulcer Outcome Not Healed [See Physician Procedure note for Specifics] Pain Scale: 0-10 Numeric [Pain] -Is Patient Pain Free? Yes Musculoskeletal: No Tenderness to Palpation of Joints or Extremities, Muscle Wasting Psych/Mental Status: Normal Affect, Appropriate Debridement Note Post-Debridement Measurements/Treatment MAYLIN - Nurse 2 - General Ulcer CM Notes Start: 01/15/19 15:24 Freq: Status: Active Protocol: Activity Type Activity Date Activity User E-Sign Co-Sign Detail Recorded Client Recorded Date Recorded By Document 01/15/19 16:16 [id number] 01/15/19 16:19 JF Document 01/22/19 14:15 JF [id number] 01/22/19 14:19 JF Document 01/29/19 14:26 AN [id number] 01/29/19 14:36 AN Document 02/05/19 14:25 AN [id number] 02/05/19 14:30 AN Document 02/12/19 14:56 AN [id number] 02/12/19 15:02 AN 01/15/19 01/22/19 01/29/19 16:16 14:15 14:26 Wound Center Nurse 2 #11- R CALF -Time -Correct Patient -Correct Side, Site, Position -Correct Procedure -Procedure Performed -Type of Procedure -Clinical Debridement -Post Debridement Size (cm) - Length -Post Debridement Size (cm) - Width -Post Debridement Size (cm) - Depth -Total Square Cm -Wound/Ulcer Outcome -Bioengineered Tissue -Type of bioengineered Tissue -Bleeding Controlled with -Treatment Response #10- R MCDOWELL -Time 14:34 -Correct Patient Yes -Correct Side, Site, Position Yes -Correct Procedure Yes -Procedure Performed Yes -Type of Procedure Debridement -Clinical Debridement Subcutaneous -Post Debridement Size (cm) - Length 1.5 -Post Debridement Size (cm) - Width 1.2 -Post Debridement Size (cm) - Depth 0.1 -Total Square Cm 1.80 -Wound/Ulcer Outcome Not Healed -Ulcer Cleansing Rinsed/ Irrigated with Saline -Foul Odor after Cleansing No -Bioengineered Tissue No -Type of bioengineered Tissue -Bleeding Controlled with Pressure -Offloading -Treatment Response Procedure Tolerated Well #9 LT CALF CLUSTER -Time 14:17 -Correct Patient Yes -Correct Side, Site, Position Yes -Correct Procedure Yes -Procedure Performed Yes -Type of Procedure Debridement -Clinical Debridement Subcutaneous -Post Debridement Size (cm) - Length 6.3 -Post Debridement Size (cm) - Width 2 -Post Debridement Size (cm) - Depth 0.1 -Total Square Cm 12.6 -Wound/Ulcer Outcome Not Healed -Ulcer Cleansing Rinsed/ Irrigated with Saline -Foul Odor after Cleansing No -Bioengineered Tissue No -Bleeding Controlled with Pressure -Offloading No -Treatment Response Procedure Tolerated Well #8- L MCDOWELL -Time 16:16 14:17 14:34 -Correct Patient Yes Yes Yes -Correct Side, Site, Position Yes Yes Yes -Correct Procedure Yes Yes Yes -Procedure Performed Yes Yes Yes -Type of Procedure Debridement Debridement Debridement -Clinical Debridement Subcutaneous Subcutaneous Subcutaneous -Post Debridement Size (cm) - Length 0.8 1.8 1.4 -Post Debridement Size (cm) - Width 0.2 1.8 1.4 -Post Debridement Size (cm) - Depth 0.1 0.1 0.1 -Total Square Cm 0.16 3.24 1.96 -Wound/Ulcer Outcome Not Healed Not Healed Not Healed -Ulcer Cleansing Rinsed/ Rinsed/ Rinsed/ Irrigated with Irrigated with Irrigated with Saline Saline Saline -Foul Odor after Cleansing No No No -Bioengineered Tissue No No No -Type of bioengineered Tissue -Bleeding Controlled with Pressure Pressure Pressure -Offloading No No -Treatment Response Procedure Procedure Procedure Tolerated Well Tolerated Well Tolerated Well #7- RT MEDIAL LEG/CALF CLUSTER -Time 16:16 14:18 14:35 -Correct Patient Yes Yes Yes -Correct Side, Site, Position Yes Yes Yes -Correct Procedure Yes Yes Yes -Procedure Performed Yes Yes Yes -Type of Procedure Debridement Debridement Debridement -Clinical Debridement Subcutaneous Subcutaneous Subcutaneous -Post Debridement Size (cm) - Length 3.8 2.3 2.4 -Post Debridement Size (cm) - Width 5.4 2.4 2.6 -Post Debridement Size (cm) - Depth 0.1 0.1 0.1 -Total Square Cm 20.52 5.52 6.24 -Wound/Ulcer Outcome Not Healed Not Healed Not Healed -Ulcer Cleansing Rinsed/ Rinsed/ Rinsed/ Irrigated with Irrigated with Irrigated with Saline Saline Saline -Foul Odor after Cleansing No No -Bioengineered Tissue No No No -Type of bioengineered Tissue -Bleeding Controlled with Pressure Pressure Pressure -Offloading No No -Treatment Response Procedure Procedure Procedure Tolerated Well Tolerated Well Tolerated Well Pain Scale: 0-10 Numeric Is Patient Pain Free? Yes Yes Yes 02/05/19 02/12/19 14:25 14:56 Wound Center Nurse 2 #11- R CALF -Time 14:28 14:58 -Correct Patient Yes Yes -Correct Side, Site, Position Yes Yes -Correct Procedure Yes Yes -Procedure Performed Yes Yes -Type of Procedure Debridement Debridement -Clinical Debridement Subcutaneous Subcutaneous -Post Debridement Size (cm) - Length 1.6 1.3 -Post Debridement Size (cm) - Width 0.9 1.6 -Post Debridement Size (cm) - Depth 0.1 0.2 -Total Square Cm 1.44 2.08 -Wound/Ulcer Outcome Not Healed Amputation -Bioengineered Tissue Yes Yes -Type of bioengineered Tissue EPIFIX EPIFIX -Bleeding Controlled with Pressure -Treatment Response Procedure Procedure Tolerated Well Tolerated Well #10- R MCDOWELL -Time 14:28 14:58 -Correct Patient Yes Yes -Correct Side, Site, Position Yes Yes -Correct Procedure Yes Yes -Procedure Performed Yes Yes -Type of Procedure Debridement Debridement -Clinical Debridement Subcutaneous Subcutaneous -Post Debridement Size (cm) - Length 0.2 0.2 -Post Debridement Size (cm) - Width 0.2 0.2 -Post Debridement Size (cm) - Depth 0.1 0.1 -Total Square Cm 0.04 0.04 -Wound/Ulcer Outcome Not Healed Not Healed -Ulcer Cleansing Rinsed/ Irrigated with Saline -Foul Odor after Cleansing No -Bioengineered Tissue Yes Yes -Type of bioengineered Tissue EPIFIX EPIFIX -Bleeding Controlled with Pressure -Offloading No -Treatment Response Procedure Procedure Tolerated Well Tolerated Well #9 LT CALF CLUSTER -Time -Correct Patient -Correct Side, Site, Position -Correct Procedure -Procedure Performed -Type of Procedure -Clinical Debridement -Post Debridement Size (cm) - Length -Post Debridement Size (cm) - Width -Post Debridement Size (cm) - Depth -Total Square Cm -Wound/Ulcer Outcome -Ulcer Cleansing -Foul Odor after Cleansing -Bioengineered Tissue -Bleeding Controlled with -Offloading -Treatment Response #8- L MCDOWELL -Time 14:28 -Correct Patient Yes -Correct Side, Site, Position Yes -Correct Procedure Yes -Procedure Performed Yes -Type of Procedure Debridement -Clinical Debridement Subcutaneous -Post Debridement Size (cm) - Length 0.9 -Post Debridement Size (cm) - Width 1.9 -Post Debridement Size (cm) - Depth 0.1 -Total Square Cm 1.71 -Wound/Ulcer Outcome Not Healed -Ulcer Cleansing Rinsed/ Irrigated with Saline -Foul Odor after Cleansing No -Bioengineered Tissue Yes -Type of bioengineered Tissue EPIFIX -Bleeding Controlled with Pressure -Offloading -Treatment Response Procedure Tolerated Well #7- RT MEDIAL LEG/CALF CLUSTER -Time 14:29 14:59 -Correct Patient Yes Yes -Correct Side, Site, Position Yes Yes -Correct Procedure Yes Yes -Procedure Performed Yes Yes -Type of Procedure Debridement Debridement -Clinical Debridement Subcutaneous Subcutaneous -Post Debridement Size (cm) - Length 2.9 1.3 -Post Debridement Size (cm) - Width 2.5 1.6 -Post Debridement Size (cm) - Depth 0.1 0.2 -Total Square Cm 7.25 2.08 -Wound/Ulcer Outcome Not Healed Not Healed -Ulcer Cleansing Rinsed/ Irrigated with Saline -Foul Odor after Cleansing No -Bioengineered Tissue Yes -Type of bioengineered Tissue EPIFIX -Bleeding Controlled with Pressure -Offloading No -Treatment Response Procedure Tolerated Well Pain Scale: 0-10 Numeric Is Patient Pain Free? Yes Yes Wound debrided: posterior leg Laterality: Right Wound Grade/Stage: grade 1 Type of Debridement: Excisional debridement Anesthesia Used: 5% Lidocaine Gel Depth: in the subcutaneous layer Percentage of wound debrided: 100 Instrument Used: #15 blade Tissue Removed: fibrous, devitalized subcutaneous, biofilm, slough Severity: Fat Layer Exposed Amount of bleeding with debridement: Mild Bleeding Controlled with: Pressure Patient tolerated procedure well - Additional Wound Wound debrided: lateral leg Laterality: Right Wound Grade/Stage: grade 1 Type of Debridement: Excisional debridement Anesthesia Used: 5% Lidocaine Gel Depth: in the subcutaneous layer Percentage of wound debrided: 100 Instrument Used: #15 blade Tissue Removed: fibrous, devitalized subcutaneous, biofilm, slough Severity: Fat Layer Exposed Amount of bleeding with debridement: Mild Bleeding Controlled with: Pressure Patient tolerated procedure: Patient tolerated procedure well Assessment/Plan Assessment: See diagnoses Plan: I reviewed and discussed his case today. I recommend updating the diagnostic data with CBC and CMP (no gross abnormalities), hemoglobin A1c (7.4%), and prealbumin (24). This was reviewed as noted. He continues work with his primary care physician on improvement. Subcutaneous excisional debridement was performed as noted in the clinical panel to both ulcer sites of the right lower extremity. Advanced wound healing product, epi fix was applied today according to standard protocol after verbal consent was obtained. This was secured in place with a wound veil and Steri-Strips. This is medically necessary for limb salvage. The indication, purpose, and anticipated healing time management were discussed in detail with the patient. He tolerated this well. To continue with compression management to keep edema under control with Tubigrip's. I do recommend periodic elevation and to avoid idle standing and sitting. He is reassured no local signs of infection are noted and I do not recommend additional antibiotics. It is also noted he is on anticoagulation medication Eliquis and he is at risk for continued skin discontinuities. I recommend updating his noninvasive vascular arterial studies and updated venous Doppler with reflux evaluation were provided. He relates he did obtain the updated venous studies but not arterial. The findings of the acute and chronic blood clots was communicated with his primary care physician Dr. Thompson. It appears he is already on a treatment course for this. Nutritional supplementation was recommended to optimize healing. To continue prescribed Vernon supplementation; I recommended using half a pack a day and to monitor glucose changes closely. To keep pressure off of the sites by avoid laying directly on them I offered him offloading donut pillows. To return to the wound healing center 1 week or call sooner for any questions or concerns. I answered all his questions.
== END 2019-02-12 23:59 ==
LOC: WC 14:15
PROVIDERS: Family Provider Family Medicine; PCP Family Medicine; Referring Provider Podiatrist; Visit Provider Podiatrist
DX: E11.622 Type 2 diabetes mellitus with other skin ulcer (principal); E11.51 Type 2 diabetes mellitus with diabetic peripheral angiopathy without gangrene; I87.2 Venous insufficiency (chronic) (peripheral); R60.0 Localized edema; L97.822 Non-pressure chronic ulcer of other part of left lower leg with fat layer exposed; L97.812 Non-pressure chronic ulcer of other part of right lower leg with fat layer exposed; E11.40 Type 2 diabetes mellitus with diabetic neuropathy, unspecified; Z86.718 Personal history of other venous thrombosis and embolism; E78.5 Hyperlipidemia, unspecified; J44.9 Chronic obstructive pulmonary disease, unspecified; I10 Essential (primary) hypertension; K21.9 Gastro-esophageal reflux disease without esophagitis; Z79.899 Other long term (current) drug therapy; Z79.84 Long term (current) use of oral hypoglycemic drugs; Z79.01 Long term (current) use of anticoagulants
CPT/HCPCS: 11042; 11045; 15271; 93970; 99213; Q4186; G0463

== ENCOUNTER 2019-03-12 13:45 | Outpatient (RCR) | payer MEDICARE, OTHER, SELFPAY ==
[2019-02-13 01:08] VITALS: BP 136/68; PULSE 71; RESP 18; TEMP 36.4
[2019-02-19 13:56] VITALS: BP 113/68; PULSE 71; RESP 16; TEMP 36.2; BMI 35.3
--- NOTE | 2019-02-19 15:26 | PN.PCM_ITS ---
(1) Ulcer of right lower extremity with fat layer exposed Status: Chronic Current Visit: Yes Code(s): L97.912 - Non-pressure chronic ulcer of unspecified part of right lower leg with fat layer exposed (2) Diabetic neuropathy associated with type 2 diabetes mellitus Status: Chronic Current Visit: Yes Code(s): E11.40 - Type 2 diabetes mellitus with diabetic neuropathy, unspecified (3) Venous insufficiency of both lower extremities Status: Chronic Current Visit: Yes Code(s): I87.2 - Venous insufficiency (chronic) (peripheral) (4) Edema of lower extremity Status: Chronic Current Visit: Yes Code(s): R60.0 - Localized edema Type of Wound Date of Service: 02/20/19 Chief Complaint: right leg ulcers History of Wound: 78-year-old male with diabetes, history of blood clots has Sonya filters, venous insufficiency presents with open ulcers to the right and left legs. He follows up for ulcers of the right leg today. It is noted his left leg ulcers have healed. He denies redness or odor. He did have previous vein ablations performed. He denies current fever, chill, nausea, vomiting, shortness of breath or chest pain. He is with his today. He continues reduced Vernon nutritional supplementation and his blood sugar has stabilized. He was not able to get his arterial study completed due to his chronic blood clots. He continues on Eliquis. Progress of Wound: improving - Physical Exam Vital Signs Temp Pulse Resp BP 97.1 F L 71 16 113/68 02/19/19 13:56 02/19/19 13:56 02/19/19 13:56 02/19/19 13:56 General: Alert, Oriented x3, Cooperative, No apparent distress Extremities: No cyanosis, Capillary Refill Less than 3 Seconds, No Calf Tenderness - Negative Jana and Sanford sign right, Diminished Peripheral Pulses, Edema Skin: Ulcer/ Wound - No purulence, erythema, streaking, odor, infection. There is full epithelialization to the lateral and posterior right leg. The ulcer continues to the posterior medial right leg ulcer with granulation and spares fibrous tissue noted. Peripheral skin is hairless and atrophic Wound Measurements and Assessment WC - Nurse 1 - General Ulcer Measurement Start: 02/19/19 13:56 Freq: Status: Active Protocol: Activity Type Activity Date Activity User E-Sign Co-Sign Detail Recorded Client Recorded Date Recorded By Document 02/19/19 13:56 AN [id number] 02/19/19 14:03 AN 02/19/19 13:56 Wound Center Nurse 1 [Ulcer Assessment] #10- R [email or web address] -Current Size (cm) - Length 0 -Current Size (cm) - Width 0 -Current Size (cm) - Depth 0 -Total Square Cm 0 -Photo Taken Yes -Exudate Amt None Present -Wound Margin Flat & Intact -Granulation Amt Large (67-100%) -Granulation Quality [place] -Necrosis Amt None Present (0 %) -Structure Exposed N/A -Texture (Sharri-wound Skin Appearance) Scarring -Moisture (Sharri-wound Skin Appearance Dry/Scaly ) -Color (Sharri-wound Skin Appearance) Hemosiderin Staining -Temperature (Sharri-wound Skin No Abnormality Appearance) (Pt Warm) -Tenderness on Palpation (Sharri-wound No Skin Appearance) -Ulcer Cleansing Wound Cleanser -Foul Odor after Cleansing No #7- RT MEDIAL LEG/CALF CLUSTER -Current Size (cm) - Length 1.6 -Current Size (cm) - Width 6.2 -Current Size (cm) - Depth 0.2 -Total Square Cm 9.92 -Exudate Amt Small -Exudate Type Serosanguineous -Wound Margin Distinct, Outline Attached -Granulation Amt Medium (34-66%) -Granulation Quality Red -Necrosis Amt Medium (34-66%) -Necrotic Tissue Type Adherent Slough -Structure Exposed N/A -Texture (Sharri-wound Skin Appearance) Scarring -Moisture (Sharri-wound Skin Appearance Dry/Scaly ) -Color (Sharri-wound Skin Appearance) Hemosiderin Staining,Rubor -Temperature (Sharri-wound Skin No Abnormality Appearance) (Pt Warm) -Tenderness on Palpation (Sharri-wound No Skin Appearance) -Ulcer Cleansing Wound Cleanser -Foul Odor after Cleansing No -Anesthetic Used 4% Lidocaine Solution [Edema Assessment] -Right Calf (cm) 41.8 -Right Ankle (cm) 26.5 WC - Nurse 2 - General Ulcer CM Notes Start: 02/19/19 13:56 Freq: Status: Active Protocol: Activity Type Activity Date Activity User E-Sign Co-Sign Detail Recorded Client Recorded Date Recorded By Document 02/19/19 14:33 AN [id number] 02/19/19 14:41 AN 02/19/19 14:33 Wound Center Nurse 2 [Procedure/Treatment] #7- RT MEDIAL LEG/CALF CLUSTER -Time 14:40 -Correct Patient Yes -Correct Side, Site, Position Yes -Correct Procedure Yes -Procedure Performed Yes -Type of Procedure Debridement -Clinical Debridement Subcutaneous -Post Debridement Size (cm) - Length 1.7 -Post Debridement Size (cm) - Width 6.3 -Post Debridement Size (cm) - Depth 0.2 -Total Square Cm 10.71 -Wound/Ulcer Outcome Not Healed -Ulcer Cleansing Rinsed/ Irrigated with Saline -Foul Odor after Cleansing No -Bioengineered Tissue Yes -Type of bioengineered Tissue EPIFIX -Bleeding Controlled with Pressure -Offloading Yes -Treatment Response Procedure Tolerated Well [See Physician Procedure note for Specifics] Pain Scale: 0-10 Numeric [Pain] -Is Patient Pain Free? Yes Musculoskeletal: No Tenderness to Palpation of Joints or Extremities, Muscle Wasting, - - Compartment soft to palpate Neurological: - - Lack of epicritic sensation to light touch Psych/Mental Status: Normal Affect, Appropriate Debridement Note Post-Debridement Measurements/Treatment WC - Nurse 2 - General Ulcer CM Notes Start: 02/19/19 13:56 Freq: Status: Active Protocol: Activity Type Activity Date Activity User E-Sign Co-Sign Detail Recorded Client Recorded Date Recorded By Document 02/19/19 14:33 AN [id number] 02/19/19 14:41 AN 02/19/19 14:33 Wound Center Nurse 2 #7- RT MEDIAL LEG/CALF CLUSTER -Time 14:40 -Correct Patient Yes -Correct Side, Site, Position Yes -Correct Procedure Yes -Procedure Performed Yes -Type of Procedure Debridement -Clinical Debridement Subcutaneous -Post Debridement Size (cm) - Length 1.7 -Post Debridement Size (cm) - Width 6.3 -Post Debridement Size (cm) - Depth 0.2 -Total Square Cm 10.71 -Wound/Ulcer Outcome Not Healed -Ulcer Cleansing Rinsed/ Irrigated with Saline -Foul Odor after Cleansing No -Bioengineered Tissue Yes -Type of bioengineered Tissue EPIFIX -Bleeding Controlled with Pressure -Offloading Yes -Treatment Response Procedure Tolerated Well Pain Scale: 0-10 Numeric Is Patient Pain Free? Yes Wound debrided: posterior leg Laterality: Right Wound Grade/Stage: grade 1 Type of Debridement: Excisional debridement Anesthesia Used: 5% Lidocaine Gel Depth: in the subcutaneous layer Percentage of wound debrided: 100 Instrument Used: #15 blade Tissue Removed: fibrous, devitalized subcutaneous, biofilm, slough Severity: Fat Layer Exposed Amount of bleeding with debridement: Mild Bleeding Controlled with: Pressure Patient tolerated procedure well Assessment/Plan Active Problems (Last Updated 02/17/19 @ 15:52 by Ivory Smiley) Diabetic neuropathy associated with type 2 diabetes mellitus (Chronic) Venous insufficiency of both lower extremities (Chronic) Edema of lower extremity (Chronic) Ulcer of right lower extremity with fat layer exposed (Chronic) Assessment: See diagnoses Plan: I reviewed and discussed his case today. I recommend updating the diagnostic data with CBC and CMP (no gross abnormalities), hemoglobin A1c (7.4%), and prealbumin (24). This was reviewed as noted. He continues work with his primary care physician on improvement. Subcutaneous excisional debridement was performed as noted in the clinical panel to both ulcer sites. Advanced wound healing product, epi fix was applied today according to standard protocol after verbal consent was obtained. This was secured in place with a wound veil and Steri-Strips. This is medically necessary for limb salvage. The indication, purpose, and anticipated healing time management were discussed in detail with the patient. He tolerated this well. To continue with compression management to keep edema under control with Tubigrip's. I do recommend periodic elevation and to avoid idle standing and sitting. He is reassured no local signs of infection are noted and I do not recommend additional antibiotics. It is also noted he is on anticoagulation medication Eliquis and he is at risk for continued skin discontinuities. I recommend updating his noninvasive vascular arterial studies and updated venous Doppler with reflux evaluation were provided. He relates he did obtain the updated venous studies but not arterial. I do not see the results results electronically and these will be requested. Nutritional supplementation was recommended to optimize healing. To continue prescribed Vernon supplementation; I recommended using half a pack a day and to monitor glucose changes closely. To keep pressure off of the sites by avoid laying directly on them I offered him offloading donut pillows. To return to the wound healing center 1 week or call sooner for any questions or concerns. I answered all his questions.
[2019-02-28 14:04] VITALS: BP 123/72; PULSE 68; RESP 18; TEMP 35.8; BMI 35.3
--- NOTE | 2019-02-28 16:31 | PN.PCM_ITS ---
(1) Ulcer of right lower extremity with fat layer exposed Status: Chronic Current Visit: Yes Code(s): L97.912 - Non-pressure chronic ulcer of unspecified part of right lower leg with fat layer exposed (2) Diabetic neuropathy associated with type 2 diabetes mellitus Status: Chronic Current Visit: Yes Code(s): E11.40 - Type 2 diabetes mellitus with diabetic neuropathy, unspecified (3) Venous insufficiency of both lower extremities Status: Chronic Current Visit: Yes Code(s): I87.2 - Venous insufficiency (chronic) (peripheral) (4) Edema of lower extremity Status: Chronic Current Visit: Yes Code(s): R60.0 - Localized edema Type of Wound Date of Service: 03/02/19 Chief Complaint: right leg ulcers History of Wound: 78-year-old male with diabetes, history of blood clots has Sonya filters, venous insufficiency presents with open ulcers to the right and left legs. He follows up for ulcers of the right leg today. It is noted his left leg ulcers have healed. He denies redness or odor. He did have previous vein ablations performed. He denies current fever, chill, nausea, vomiting, shortness of breath or chest pain. He continues reduced Vernon nutritional supplementation and his blood sugar has stabilized. He was not able to get his arterial study completed due to his chronic blood clots. He co ntinues on Eliquis. He kept his dressings intact from last week is advised. Progress of Wound: improving posterior right leg ulcer. one of the ulcer clusters is healed today - Physical Exam Vital Signs Temp Pulse Resp BP 96.4 F L 68 18 123/72 H 02/28/19 14:04 02/28/19 14:04 02/28/19 14:04 02/28/19 14:04 General: Alert, Oriented x3, Cooperative, No apparent distress Extremities: No cyanosis, Capillary Refill Less than 3 Seconds, No Calf Tenderness - Negative Jana and Sanford sign bilateral, Diminished Peripheral Pulses, Edema Skin: Ulcer/ Wound - No purulence, erythema, streaking, odor, or infection. Ulcer cluster has full epithelialization on today and there is only one skin discontinuity in her to the posterior right leg which has a granular healthy base. Adjacent skin is hairless and atrophic. Wound Measurements and Assessment WC - Nurse 1 - General Ulcer Measurement Start: 02/19/19 13:56 Freq: Status: Active Protocol: Activity Type Activity Date Activity User E-Sign Co-Sign Detail Recorded Client Recorded Date Recorded By Document 02/28/19 14:04 [facility] [id number] 02/28/19 14:11 [facility] 02/28/19 14:04 Wound Center Nurse 1 [Ulcer Assessment] #7- RT MEDIAL LEG/CALF CLUSTER -Combined with other wound No -Current Size (cm) - Length 2.5 -Current Size (cm) - Width 4.9 -Current Size (cm) - Depth 0.2 -Total Square Cm 12.25 -Photo Taken No -Epithelialization None Present -Tunneling No -Undermining/Tunneling No -Circular Undermining No -Exudate Amt Small -Exudate Type Serosanguineous -Wound Margin Distinct, Outline Attached -Granulation Amt Small (1-33%) -Granulation Quality Red -Slough/Fibrin Yes -Necrosis Amt Large (67-100%) -Necrotic Tissue Type Adherent Slough -Texture (Sharri-wound Skin Appearance) Assessed, Scarring -Moisture (Sharri-wound Skin Appearance Assessed,Dry/ ) Scaly -Color (Sharri-wound Skin Appearance) Assessed -Temperature (Sharri-wound Skin No Abnormality Appearance) (Pt Warm) -Tenderness on Palpation (Sharri-wound No Skin Appearance) -Ulcer Cleansing Rinsed/ Irrigated with Saline -Foul Odor after Cleansing No -Anesthetic Used 4% Lidocaine Solution [Edema Assessment] -Lower Limb Edema Present Yes -Right Calf (cm) 41.7 -Right Ankle (cm) 26.6 WC - Nurse 2 - General Ulcer CM Notes Start: 02/19/19 13:56 Freq: Status: Active Protocol: Activity Type Activity Date Activity User E-Sign Co-Sign Detail Recorded Client Recorded Date Recorded By Document 02/28/19 14:29 [id number] 02/28/19 14:32 DV 02/28/19 14:29 Wound Center Nurse 2 [Procedure/Treatment] #7- RT MEDIAL LEG/CALF CLUSTER -Time 14:30 -Correct Patient Yes -Correct Side, Site, Position Yes -Correct Procedure Yes -Procedure Performed Yes -Type of Procedure Debridement -Clinical Debridement Subcutaneous -Post Debridement Size (cm) - Length 0.8 -Post Debridement Size (cm) - Width 0.6 -Post Debridement Size (cm) - Depth 0.1 -Total Square Cm 0.48 -Wound/Ulcer Outcome Not Healed -Ulcer Cleansing Rinsed/ Irrigated with Saline -Foul Odor after Cleansing No -Bioengineered Tissue No -Bleeding Controlled with Pressure -Offloading No -Treatment Response Procedure Tolerated Well [See Physician Procedure note for Specifics] Pain Scale: 0-10 Numeric [Pain] -Is Patient Pain Free? Yes Musculoskeletal: No Tenderness to Palpation of Joints or Extremities, Muscle Wasting Neurological: - - Lack of normal epicritic sensation light touch Psych/Mental Status: Normal Affect, Appropriate Debridement Note Post-Debridement Measurements/Treatment WC - Nurse 2 - General Ulcer CM Notes Start: 02/19/19 13:56 Freq: Status: Active Protocol: Activity Type Activity Date Activity User E-Sign Co-Sign Detail Recorded Client Recorded Date Recorded By Document 02/19/19 14:33 AN [id number] 02/19/19 14:41 AN Document 02/28/19 14:29 DV [id number] 02/28/19 14:32 DV 02/19/19 02/28/19 14:33 14:29 Wound Center Nurse 2 #7- RT MEDIAL LEG/CALF CLUSTER -Time 14:40 14:30 -Correct Patient Yes Yes -Correct Side, Site, Position Yes Yes -Correct Procedure Yes Yes -Procedure Performed Yes Yes -Type of Procedure Debridement Debridement -Clinical Debridement Subcutaneous Subcutaneous -Post Debridement Size (cm) - Length 1.7 0.8 -Post Debridement Size (cm) - Width 6.3 0.6 -Post Debridement Size (cm) - Depth 0.2 0.1 -Total Square Cm 10.71 0.48 -Wound/Ulcer Outcome Not Healed Not Healed -Ulcer Cleansing Rinsed/ Rinsed/ Irrigated with Irrigated with Saline Saline -Foul Odor after Cleansing No No -Bioengineered Tissue Yes No -Type of bioengineered Tissue EPIFIX -Bleeding Controlled with Pressure Pressure -Offloading Yes No -Treatment Response Procedure Procedure Tolerated Well Tolerated Well Pain Scale: 0-10 Numeric Is Patient Pain Free? Yes Yes Wound debrided: posterior leg Laterality: Right Wound Grade/Stage: grade1 Type of Debridement: Excisional debridement Anesthesia Used: 5% Lidocaine Gel Depth: in the subcutaneous layer Percentage of wound debrided: 100 Instrument Used: #15 blade Tissue Removed: fibrous, devitalized subcutaneous, biofilm, slough Severity: Fat Layer Exposed Amount of bleeding with debridement: Mild Bleeding Controlled with: Pressure Patient tolerated procedure well Assessment/Plan Active Problems (Last Updated 02/24/19 @ 11:37 by Ivory Smiley) Diabetic neuropathy associated with type 2 diabetes mellitus (Chronic) Venous insufficiency of both lower extremities (Chronic) Edema of lower extremity (Chronic) Ulcer of right lower extremity with fat layer exposed (Chronic) Assessment: See diagnoses Plan: I reviewed and discussed his case today. I recommend updating the diagnostic data with CBC and CMP (no gross abnormalities), hemoglobin A1c (7.4%), and prealbumin (24). This was reviewed as noted at previous visits. He continues work with his primary care physician on improvement. Subcutaneous excisional debridement was performed as noted in the clinical panel to the remaining ulcer site of the right lower extremity. To change the dressing daily with hydrogel and Adaptic. His previous advanced wound healing prior application course including epi fix is noted and he is responded well. To continue with compression management to keep edema under control with Tub igrip's. I do recommend periodic elevation and to avoid idle standing and sitting. He is reassured no local signs of infection are noted and I do not recommend additional antibiotics. It is also noted he is on anticoagulation medication Eliquis and he is at risk for continued skin discontinuities. I recommend updating his noninvasive vascular arterial studies and updated venous Doppler with reflux evaluation were provided. He relates he did obtain the updated venous studies but not arterial. The findings of the acute and chronic blood clots was communicated with his primary care physician Dr. Thompson. It appears he is already on a treatment course for this. Nutritional supplementation was recommended to optimize healing. To continue prescribed Vernon supplementation; I recommended using half a pack a day and to monitor glucose changes closely. To keep pressure off of the sites by avoid laying directly on them I offered him offloading donut pillows. To return to the wound healing center 1 week or call sooner for any questions or concerns. I answered all his questions.
[2019-03-12 13:44] VITALS: BP 149/73; PULSE 66; RESP 18; TEMP 36.1; BMI 35.3
--- NOTE | 2019-03-12 15:48 | PN.PCM_ITS ---
(1) Ulcer of right lower extremity with fat layer exposed Status: Chronic Current Visit: Yes Code(s): L97.912 - Non-pressure chronic ulcer of unspecified part of right lower leg with fat layer exposed (2) Diabetic neuropathy associated with type 2 diabetes mellitus Status: Chronic Current Visit: Yes Code(s): E11.40 - Type 2 diabetes mellitus with diabetic neuropathy, unspecified (3) Venous insufficiency of both lower extremities Status: Chronic Current Visit: Yes Code(s): I87.2 - Venous insufficiency (chronic) (peripheral) (4) Edema of lower extremity Status: Chronic Current Visit: Yes Code(s): R60.0 - Localized edema Type of Wound Date of Service: 03/12/19 Chief Complaint: right leg ulcers History of Wound: 78-year-old male with diabetes, history of blood clots has [employer] filters, venous insufficiency presents with open ulcers to the right and left legs. He follows up for ulcers of the right leg today. It is noted his left leg ulcers have healed. He denies redness or odor. He did have previous vein ablations performed. He denies current fever, chill, nausea, vomiting, shortness of breath or chest pain. He continues reduced Vernon nutritional supplementation and his blood sugar has stabilized. He was not able to get his arterial study completed due to his chronic blood clots. He co ntinues on Eliquis. He changed his dressings as advised over the past week. Progress of Wound: improving posterior right leg ulcer - Physical Exam Vital Signs Temp Pulse Resp BP 97 F L 66 18 149/73 H 03/12/19 13:44 03/12/19 13:44 03/12/19 13:44 03/12/19 13:44 General: Alert, Oriented x3, Cooperative, No apparent distress Extremities: No cyanosis, Capillary Refill Less than 3 Seconds, No Calf Tenderness, Diminished Peripheral Pulses, Edema - Mild to moderate bilateral lower extremities. Hyperpigmentation Skin: Ulcer/ Wound - No purulence, erythema, streaking, odor, infection. The remaining ulcer is granular Wound Measurements and Assessment WC - Nurse 1 - General Ulcer Measurement Start: 02/19/19 13:56 Freq: Status: Active Protocol: Activity Type Activity Date Activity User E-Sign Co-Sign Detail Recorded Client Recorded Date Recorded By Document 03/12/19 13:44 [facility] [id number] 03/12/19 13:47 [facility] 03/12/19 13:44 Wound Center Nurse 1 [Ulcer Assessment] #7- RT MEDIAL LEG/CALF CLUSTER -Combined with other wound No -Current Size (cm) - Length 0.1 -Current Size (cm) - Width 0.1 -Current Size (cm) - Depth 0.1 -Total Square Cm 0.01 -Photo Taken No -Epithelialization Medium 34-66% -Tunneling No -Undermining/Tunneling No -Circular Undermining No -Exudate Amt Small -Exudate Type Serous -Wound Margin Flat & Intact -Granulation Amt Small (1-33%) -Granulation Quality Red -Slough/Fibrin No -Necrosis Amt None Present (0 %) -Texture (Sharri-wound Skin Appearance) Assessed, Scarring -Moisture (Sharri-wound Skin Appearance Assessed,Dry/ ) Scaly -Color (Sharri-wound Skin Appearance) Assessed, Hemosiderin Staining -Temperature (Sharri-wound Skin No Abnormality Appearance) (Pt Warm) -Tenderness on Palpation (Sharri-wound No Skin Appearance) -Ulcer Cleansing Rinsed/ Irrigated with Saline -Foul Odor after Cleansing No -Anesthetic Used 5% Lidocaine Gel [Edema Assessment] -Lower Limb Edema Present Yes -Right Calf (cm) 42 -Right Ankle (cm) 25.6 WC - Nurse 2 - General Ulcer CM Notes Start: 02/19/19 13:56 Freq: Status: Active Protocol: Activity Type Activity Date Activity User E-Sign Co-Sign Detail Recorded Client Recorded Date Recorded By Document 03/12/19 14:26 [id number] 03/12/19 14:28 AN 03/12/19 14:26 Wound Center Nurse 2 [Procedure/Treatment] #7- RT MEDIAL LEG/CALF CLUSTER -Time 14:27 -Correct Patient Yes -Correct Side, Site, Position Yes -Correct Procedure Yes -Procedure Performed Yes -Type of Procedure Debridement -Clinical Debridement Subcutaneous -Post Debridement Size (cm) - Length 0.2 -Post Debridement Size (cm) - Width 0.2 -Post Debridement Size (cm) - Depth 0.1 -Total Square Cm 0.04 -Wound/Ulcer Outcome Not Healed -Ulcer Cleansing Rinsed/ Irrigated with Saline -Foul Odor after Cleansing No -Bioengineered Tissue No -Bleeding Controlled with Pressure -Treatment Response Procedure Tolerated Well [See Physician Procedure note for Specifics] Pain Scale: 0-10 Numeric [Pain] -Is Patient Pain Free? Yes Musculoskeletal: No Tenderness to Palpation of Joints or Extremities, Muscle Wasting Neurological: - - Lack of normal epicritic sensation light touch Psych/Mental Status: Normal Affect, Appropriate Debridement Note Post-Debridement Measurements/Treatment WC - Nurse 2 - General Ulcer CM Notes Start: 02/19/19 13:56 Freq: Status: Active Protocol: Activity Type Activity Date Activity User E-Sign Co-Sign Detail Recorded Client Recorded Date Recorded By Document 02/19/19 14:33 AN [id number] 02/19/19 14:41 AN Document 02/28/19 14:29 DV [id number] 02/28/19 14:32 DV Document 03/12/19 14:26 AN [id number] 03/12/19 14:28 AN 02/19/19 02/28/19 03/12/19 14:33 14:29 14:26 Wound Center Nurse 2 #7- RT MEDIAL LEG/CALF CLUSTER -Time 14:40 14:30 14:27 -Correct Patient Yes Yes Yes -Correct Side, Site, Position Yes Yes Yes -Correct Procedure Yes Yes Yes -Procedure Performed Yes Yes Yes -Type of Procedure Debridement Debridement Debridement -Clinical Debridement Subcutaneous Subcutaneous Subcutaneous -Post Debridement Size (cm) - Length 1.7 0.8 0.2 -Post Debridement Size (cm) - Width 6.3 0.6 0.2 -Post Debridement Size (cm) - Depth 0.2 0.1 0.1 -Total Square Cm 10.71 0.48 0.04 -Wound/Ulcer Outcome Not Healed Not Healed Not Healed -Ulcer Cleansing Rinsed/ Rinsed/ Rinsed/ Irrigated with Irrigated with Irrigated with Saline Saline Saline -Foul Odor after Cleansing No No No -Bioengineered Tissue Yes No No -Type of bioengineered Tissue EPIFIX -Bleeding Controlled with Pressure Pressure Pressure -Offloading Yes No -Treatment Response Procedure Procedure Procedure Tolerated Well Tolerated Well Tolerated Well Pain Scale: 0-10 Numeric Is Patient Pain Free? Yes Yes Yes Wound debrided: posterior leg Laterality: Right Wound Grade/Stage: grade 1 Type of Debridement: Excisional debridement Anesthesia Used: 5% Lidocaine Gel Depth: in the subcutaneous layer Percentage of wound debrided: 100 Instrument Used: #15 blade Tissue Removed: fibrous, devitalized subcutaneous, biofilm, slough Severity: Fat Layer Exposed Amount of bleeding with debridement: Mild Bleeding Controlled with: Pressure Patient tolerated procedure well Assessment/Plan Active Problems (Last Updated 02/24/19 @ 11:37 by Ivory Smiley) Diabetic neuropathy associated with type 2 diabetes mellitus (Chronic) Venous insufficiency of both lower extremities (Chronic) Edema of lower extremity (Chronic) Ulcer of right lower extremity with fat layer exposed (Chronic) Assessment: See diagnoses Plan: I reviewed and discussed his case today. I recommend updating the diagnostic data with CBC and CMP (no gross abnormalities), hemoglobin A1c (7.4%), and prealbumin (24). This was reviewed as noted at previous visits. He continues work with his primary care physician on improvement. Subcutaneous excisional debridement was performed as noted in the clinical panel to the remaining ulcer site of the right lower extremity. To change the dressing daily with hydrogel and Adaptic. His previous advanced wound healing prior application course including epi fix is noted and he is responded well. To continue with compression management to keep edema under control with Tubigrip's. I do recommend periodic elevation and to avoid idle standing and sitting. He is reassured no local signs of infection are noted and I do not recommend additional antibiotics. It is also noted he is on anticoagulation medication Eliquis and he is at risk for continued skin discontinuities. I recommend updating his noninvasive vascular arterial studies and updated venous Doppler with reflux evaluation were provided. He relates he did obtain the updated venous studies but not arterial. The findings of the acute and chronic blood clots was communicated with his primary care physician Dr. Thompson. It appears he is already on a treatment course for this. Nutritional supplementation was recommended to optimize healing. To continue prescribed Vernon supplementation; I recommended using half a pack a day and to monitor glucose changes closely. To keep pressure off of the sites by avoid laying directly on them I offered him offloading donut pillows. To return to the wound healing center 1 week or call sooner for any questions or concerns. I answered all his questions.
== END 2019-03-15 23:59 ==
LOC: WC 13:45
PROVIDERS: Family Provider Family Medicine; PCP Family Medicine; Referring Provider Podiatrist; Visit Provider Podiatrist
DX: E11.622 Type 2 diabetes mellitus with other skin ulcer (principal); E11.51 Type 2 diabetes mellitus with diabetic peripheral angiopathy without gangrene; I87.2 Venous insufficiency (chronic) (peripheral); R60.0 Localized edema; E11.40 Type 2 diabetes mellitus with diabetic neuropathy, unspecified; Z86.718 Personal history of other venous thrombosis and embolism; L97.212 Non-pressure chronic ulcer of right calf with fat layer exposed; Z79.01 Long term (current) use of anticoagulants
CPT/HCPCS: 11042; 15271; Q4186

== ENCOUNTER 2019-03-19 13:19 | Outpatient (RCR) | payer MEDICARE, OTHER, SELFPAY ==
[2019-03-16 00:55] VITALS: BP 149/73; PULSE 66; RESP 18; TEMP 36.1; BMI 34.3
[2019-03-19 14:30] VITALS: BP 153/78; PULSE 67; RESP 18; TEMP 36.1; BMI 34.3
--- NOTE | 2019-03-19 16:04 | PN.PCM_ITS ---
(1) Venous insufficiency of both lower extremities Status: Chronic Current Visit: Yes Code(s): I87.2 - Venous insufficiency (chronic) (peripheral) (2) Edema of lower extremity Status: Chronic Current Visit: Yes Code(s): R60.0 - Localized edema (3) Ulcer of right lower extremity with fat layer exposed Status: Resolved Current Visit: Yes Code(s): L97.912 - Non-pressure chronic ulcer of unspecified part of right lower leg with fat layer exposed (4) Ulcer of left lower extremity with fat layer exposed Status: Resolved Current Visit: Yes Code(s): L97.922 - Non-pressure chronic ulcer of unspecified part of left lower leg with fat layer exposed Type of Wound Date of Service: 03/19/19 Chief Complaint: right leg ulcers healed History of Wound: 78-year-old male with diabetes, history of blood clots has [employer] filters, venous insufficiency presents with open ulcers to the right and left legs. He follows up for ulcers of the right leg today and thinks his site has healed. It is noted his left leg ulcers have healed. He denies redness or odor. He did have previous vein ablations performed. He denies current fever, chill, nausea, vomiting, shortness of breath or chest pain. He continues reduced Vernon nutritional supplementation and his blood sugar has stabilized. He was not able to get his arterial study completed due to his chronic blood clots. He continues on Eliquis. He changed his dressings as advised over the past week. Progress of Wound: healed - Physical Exam Vital Signs Temp Pulse Resp BP 97 F L 67 18 153/78 H 03/19/19 14:30 03/19/19 14:30 03/19/19 14:30 03/19/19 14:30 General: Alert, Oriented x3, Cooperative, No apparent distress Extremities: No cyanosis, Capillary Refill Less than 3 Seconds, No Calf Tenderness - Negative Jana and Sanford signs, Diminished Peripheral Pulses, Edema Skin: Ulcer/ Wound - No purulence, erythema, streaking, odor, infection. The peripheral skin is hairless atrophic. There is full epithelialization noted at the previous ulcer site in the right leg ulcer is healed. His hyperpigmentation to the legs noted Wound Measurements and Assessment WC - Nurse 1 - General Ulcer Measurement Start: 03/19/19 14:30 Freq: Status: Active Protocol: Activity Type Activity Date Activity User E-Sign Co-Sign Detail Recorded Client Recorded Date Recorded By Document 03/19/19 14:30 RB [email or web address] 03/19/19 14:33 RB 03/19/19 14:30 Wound Center Nurse 1 [Ulcer Assessment] #10- R MCDOWELL -Combined with other wound No -Current Size (cm) - Length 0 -Current Size (cm) - Width 0 -Current Size (cm) - Depth 0 -Total Square Cm 0 -Photo Taken Yes -Epithelialization Large 67-100% #7- RT MEDIAL LEG/CALF CLUSTER -Combined with other wound No -Current Size (cm) - Length 0 -Current Size (cm) - Width 0 -Current Size (cm) - Depth 0 -Total Square Cm 0 -Photo Taken Yes -Epithelialization Large 67-100% -Undermining/Tunneling No -Circular Undermining No [Edema Assessment] -Lower Limb Edema Present Yes -Right Calf (cm) 42.5 -Right Ankle (cm) 26.5 WC - Nurse 2 - General Ulcer CM Notes Start: 03/19/19 14:30 Freq: Status: Active Protocol: Activity Type Activity Date Activity User E-Sign Co-Sign Detail Recorded Client Recorded Date Recorded By Document 03/19/19 15:21 AN [id number] 03/19/19 15:21 AN 03/19/19 15:21 Pain Scale: 0-10 Numeric [Pain] -Is Patient Pain Free? Yes Musculoskeletal: No Tenderness to Palpation of Joints or Extremities, Muscle Wasting, - - Compartment soft to palpate right leg Psych/Mental Status: Normal Affect, Appropriate Debridement Note Post-Debridement Measurements/Treatment WC - Nurse 2 - General Ulcer CM Notes Start: 03/19/19 14:30 Freq: Status: Active Protocol: Activity Type Activity Date Activity User E-Sign Co-Sign Detail Recorded Client Recorded Date Recorded By Document 03/19/19 15:21 AN [id number] 03/19/19 15:21 AN 03/19/19 15:21 Pain Scale: 0-10 Numeric Is Patient Pain Free? Yes No debridement was completed today - healed today Assessment/Plan Active Problems (Last Updated 02/24/19 @ 11:37 by Ivory Smiley) Venous insufficiency of both lower extremities (Chronic) Edema of lower extremity (Chronic) Assessment: See diagnoses Plan: I reviewed and discussed his case today. No debridement was performed today because the ulcer site is healed. To discontinue nutritional supplementation ulcer dressing changes. He understands the site is very friable and the mccarthy to prevention is controlling his edema and protecting his skin integrity. To apply Eucerin lotion daily. To check daily for new ulcers or infection which neither was noted today. To wear compression stockings; he defers need for new prescription. I do also recommend periodic elevation and to avoid idle standing and sitting. I recommend updating his noninvasive vascular arterial studies and updated venous Doppler with reflux evaluation were provided. He relates he did obtain the updated venous studies but not arterial. The findings of the acute and chronic blood clots was communicated with his primary care physician Dr. Thompson. It appears he is already on a treatment course for this. I answered all his questions. He is discharged from the wound healing center at this time. To follow-up as needed at the foot and ankle center and wound center.
== END 2019-04-14 23:59 ==
LOC: WC 13:19
PROVIDERS: Family Provider Family Medicine; PCP Family Medicine; Referring Provider Podiatrist; Visit Provider Podiatrist
DX: Z09 Encounter for follow-up examination after completed treatment for conditions other than malignant neoplasm (principal); I87.2 Venous insufficiency (chronic) (peripheral); R60.0 Localized edema; Z86.718 Personal history of other venous thrombosis and embolism; Z79.01 Long term (current) use of anticoagulants
CPT/HCPCS: 99212; G0463

== ENCOUNTER 2020-01-07 10:30 | Outpatient (RCR) | payer MEDICARE, OTHER, SELFPAY ==
[2019-12-17 09:45] VITALS: BP 114/52; PULSE 60; RESP 18; TEMP 36.2; BMI 33.9
--- NOTE | 2019-12-17 10:25 | PCM.WC.HP ---
(1) Non-pressure chronic ulcer of other part of right lower leg with fat layer exposed Status: Acute Current Visit: No Code(s): L97.812 - Non-pressure chronic ulcer of other part of right lower leg with fat layer exposed (2) DVT of lower extremity, bilateral Status: Chronic Current Visit: No Code(s): I82.403 - Acute embolism and thrombosis of unspecified deep veins of lower extremity, bilateral (3) Diabetic neuropathy associated with type 2 diabetes mellitus Status: Chronic Current Visit: No Code(s): E11.40 - Type 2 diabetes mellitus with diabetic neuropathy, unspecified (4) Type 2 diabetes mellitus Status: Chronic Current Visit: No Code(s): E11.9 - Type 2 diabetes mellitus without complications (5) Venous insufficiency of both lower extremities Status: Chronic Current Visit: No Code(s): I87.2 - Venous insufficiency (chronic) (peripheral) (6) Peripheral vascular disease of lower extremity with ulceration Status: Acute Current Visit: Yes Code(s): I73.9 - Peripheral vascular disease, unspecified; L97.909 - Non-pressure chronic ulcer of unspecified part of unspecified lower leg with unspecified severity History of Present Illness Date of Service: 12/17/19 Chief Complaint: Right lower medial vascular ulcer History of Wound: 79-year-old white male diabetic with history of DVTs driving home from [place] approximately 3 weeks ago developed an ulcer even though he is wearing his compression stockings on his right inner calf. Has been trying to use his own medications not working. Does have history of MRSA we will culture today and start him on new regimen of dressings Past Medical History Past Medical History: Chronic Problems (Last Updated 02/24/19 @ 11:37 by Ivory Smiley) Type 2 diabetes mellitus (Chronic) COPD (chronic obstructive pulmonary disease) (Chronic) Hyperlipidemia (Chronic) GERD (gastroesophageal reflux disease) (Chronic) Essential hypertension (Chronic) Leg erythema (Chronic) Diabetic neuropathy associated with type 2 diabetes mellitus (Chronic) Venous insufficiency of both lower extremities (Chronic) Edema of lower extremity (Chronic) DVT of lower extremity, bilateral (Chronic) Past Medical History: Ulcer right medial calf Surgical History: - - vein ablation LLE, juve filter placement Allergies/Adverse Reactions: Allergies clindamycin Adverse Reaction (Mild, Verified 12/17/19 10:03) Rash doxycycline Adverse Reaction (Mild, Verified 12/17/19 10:03) Rash Home Medications: Ambulatory Orders Medication Instructions Recorded Apixaban [Eliquis] 5 mg PO BID 02/03/16 Fluticasone/Salmeterol [Advair 1 puff INHALATION BID 02/03/16 500/50 Mcg Diskus] Montelukast [Singulair] 10 mg PO DAILY 02/03/16 Omeprazole [Prilosec] 20 mg PO DAILY 02/03/16 Propranolol HCl [Inderal (Beta 40 mg PO BID 02/03/16 Fernando)] Simvastatin [Zocor] 20 mg PO QHS 02/03/16 glipiZIDE [Glucotrol] 10 mg PO BID 02/03/16 metFORMIN (XR) [Glucophage Xr] 500 mg PO DAILY 02/03/16 Ferrous Sulfate 65 mg PO DAILY 02/04/16 Cetirizine HCl [Zyrtec] 10 mg PO DAILY 02/17/16 Co Q10 200 [Co Q-10] 100 mg PO DAILY 02/17/16 Docusate Sodium [Colace] 100 mg PO DAILY 02/17/16 Multivit-Min/Iron Fum/Folic AC 1 tab PO DAILY 02/17/16 [Xjrwc-Xpkttmc-Bxxdrqmv Tablet] Albuterol Inhaler [Ventolin Hfa] 2 puff INHALATION Q4H PRN PRN #1 02/01/18 inhaler Cholecalciferol (Vitamin D3) 5,000 unit PO DAILY 02/01/18 [Vitamin D3] Furosemide [Lasix] 10 mg PO DAILY 02/01/18 Hydroxyzine HCl 25 mg PO BID 02/01/18 Inhaler, Assist Devices [Space 1 ea MC UD #1 spacer 02/01/18 Chamber Plus] Bitter Melon 500 mg PO DAILY 01/15/19 Dapagliflozin Propanediol [Farxiga] 5 mg PO DAILY 01/15/19 Herbal Prostate PO DAILY 01/15/19 - Family History Maternal Family History: Family History (Last Updated 02/24/19 @ 11:05 by Ivory Smiley) Mother Ovarian cancer Heart disease Father Diabetes CVA (cerebral vascular accident) No pertinent history Paternal Family History: Family History (Last Updated 02/24/19 @ 11:05 by Ivory Smiley) Mother Ovarian cancer Heart disease Father Diabetes CVA (cerebral vascular accident) No pertinent history Smoking Status: Never smoker Alcohol: Rare Drugs: None Review of Systems Constitutional: Denies: Chills, Fever Eyes: Denies: Blurred vision, Drainage, Pain HEENT: Denies: Difficulty Hearing, Difficulty Swallowing, Sore Throat, Visual Changes Cardiovascular: Denies: Chest Pain, Palpitations, Syncope Respiratory: Denies: Cough, Shortness of Breath Gastrointestinal: Denies: Abdominal Pain, Nausea, Vomiting Genitourinary: Denies: Dysuria, Frequency Musculoskeletal: Denies: Joint Pain, Muscle pain Skin: Reports: - - Ulcer right medial calf from his peripheral vascular disease. Denies: Jaundice, Rash Neurological: Denies: Balance problems, Change in Speech, Difficulty swallowing, Focal weakness Psychiatric: Denies: Anxiety, Depression Endocrine: Denies: Change in Body Habitus Hematologic/ Lymphatic: Denies: Adenopathy - Physical Exam Vital Signs Temp Pulse Resp BP 97.1 F L 60 18 114/52 L 12/17/19 09:45 12/17/19 09:45 12/17/19 09:45 12/17/19 09:45 General: Oriented x3, Cooperative, Well developed HEENT: Atraumatic, PERRLA Oral: Moist Mucosa Neck: Supple, No JVD Lungs: Clear to auscultation, Normal air movement Cardiovascular: Regular rate, Regular Rhythm Abdomen: Bowel Sounds Present, Soft, Non Tender, No Hepato-splenomegaly Extremities: No clubbing, Edema Skin: Ulcer/ Wound - Venous insufficiency with an ulcer developed in the right calf Wound Measurements and Assessment WC - Nurse 1 - General Ulcer Measurement Start: 12/17/19 09:44 Freq: Status: Active Protocol: Activity Type Activity Date Activity User E-Sign Co-Sign Detail Recorded Client Recorded Date Recorded By Document 12/17/19 09:45 [facility] [id number] 12/17/19 10:02 [facility] 12/17/19 09:45 Wound Center Nurse 1 [Ulcer Assessment] #12- R MEDIAL LE CLUSTER -Combined with other wound No -Current Size (cm) - Length 3.9 -Current Size (cm) - Width 7 -Current Size (cm) - Depth 0.2 -Total Square Cm 27.3 -Date of Last Picture (Recall this 12/17/19 field) -Photo Taken Yes -Epithelialization None Present -Tunneling No -Undermining/Tunneling No -Circular Undermining No -Exudate Amt Small -Exudate Type Serosanguineous -Wound Margin Distinct, Outline Attached -Granulation Amt Medium (34-66%) -Granulation Quality Red -Slough/Fibrin Yes -Necrosis Amt Medium (34-66%) -Necrotic Tissue Type Adherent Slough -Texture (Sharri-wound Skin Appearance) Assessed, Scarring -Moisture (Sharri-wound Skin Appearance Assessed,Dry/ ) Scaly -Color (Sharri-wound Skin Appearance) Assessed -Temperature (Sharri-wound Skin No Abnormality Appearance) (Pt Warm) -Tenderness on Palpation (Sharri-wound No Skin Appearance) -Ulcer Cleansing Rinsed/ Irrigated with Saline -Foul Odor after Cleansing No -Anesthetic Used 4% Lidocaine Solution [Edema Assessment] -Lower Limb Edema Present Yes -Right Calf (cm) 42.2 -Right Ankle (cm) 26.1 -Left Calf (cm) 41.9 -Left Ankle (cm) 26 WC - Nurse 2 - General Ulcer CM Notes Start: 12/17/19 09:44 Freq: Status: Active Protocol: Activity Type Activity Date Activity User E-Sign Co-Sign Detail Recorded Client Recorded Date Recorded By Document 12/17/19 10:15 MW [id number] 12/17/19 10:18 MW 12/17/19 10:15 Wound Center Nurse 2 [Procedure/Treatment] #12- R MEDIAL LE CLUSTER -Time 10:16 -Correct Patient Yes -Correct Side, Site, Position Yes -Correct Procedure Yes -Procedure Performed Yes -Type of Procedure Debridement -Clinical Debridement Subcutaneous -Post Debridement Size (cm) - Length 1.5 -Post Debridement Size (cm) - Width 1.2 -Post Debridement Size (cm) - Depth 0.2 -Total Square Cm 1.80 -Wound/Ulcer Outcome Not Healed -Ulcer Cleansing Rinsed/ Irrigated with Saline -Foul Odor after Cleansing No -Bioengineered Tissue No -Bleeding Controlled with Pressure -Offloading No -Treatment Response Procedure Tolerated Well [See Physician Procedure note for Specifics] Pain Scale: 0-10 Numeric [Pain] -Is Patient Pain Free? Yes Musculoskeletal: No Tenderness to Palpation of Joints or Extremities Lymphatic: No Cervical, Supraclavicular, or Inguinal Adenopathy Neurological: Cranial nerves II-XII grossly intact, Neuro grossly intact Psych/Mental Status: Normal Affect, Appropriate Debridement Note Post-Debridement Measurements/Treatment WC - Nurse 2 - General Ulcer CM Notes Start: 12/17/19 09:44 Freq: Status: Active Protocol: Activity Type Activity Date Activity User E-Sign Co-Sign Detail Recorded Client Recorded Date Recorded By Document 12/17/19 10:15 MW [id number] 12/17/19 10:18 MW 12/17/19 10:15 Wound Center Nurse 2 #12- R MEDIAL LE CLUSTER -Time 10:16 -Correct Patient Yes -Correct Side, Site, Position Yes -Correct Procedure Yes -Procedure Performed Yes -Type of Procedure Debridement -Clinical Debridement Subcutaneous -Post Debridement Size (cm) - Length 1.5 -Post Debridement Size (cm) - Width 1.2 -Post Debridement Size (cm) - Depth 0.2 -Total Square Cm 1.80 -Wound/Ulcer Outcome Not Healed -Ulcer Cleansing Rinsed/ Irrigated with Saline -Foul Odor after Cleansing No -Bioengineered Tissue No -Bleeding Controlled with Pressure -Offloading No -Treatment Response Procedure Tolerated Well Pain Scale: 0-10 Numeric Is Patient Pain Free? Yes Wound debrided: Calf ulcer Laterality: Right Type of Debridement: Excisional debridement Anesthesia Used: 5% Lidocaine Gel Depth: Down to and including healthy tissue, in the subcutaneous layer Instrument Used: 7mm curette Tissue Removed: Fibrin and devitalized tissue Severity: Fat Layer Exposed Amount of bleeding with debridement: Mild Bleeding Controlled with: Pressure Patient did not tolerate procedure well Assessment/Plan Back and anaerobic cultures obtained Active Problems (Last Updated 02/24/19 @ 11:37 by Ivory Smiley) Peripheral vascular disease of lower extremity with ulceration (Acute) Assessment: Venous insufficiency with ulcers. Ulcer right calf nonhealing. History of MRSA. History of DVTs Plan: Wash right leg with antibacterial soap. Apply Aquacel extra to ulcer base moistened cover with Adaptic gauze dressing and Nnamdi. Double layer Tubigrip right leg. Will call with the results of the cultures obtained of his ulcer. Follow-up in 1 week
[2019-12-24 09:20] VITALS: BP 135/68; PULSE 64; RESP 18; TEMP 36.6; BMI 33.9
--- NOTE | 2019-12-24 09:38 | PN.PCM_ITS ---
(1) Non-pressure chronic ulcer of other part of right lower leg with fat layer exposed Status: Acute Current Visit: Yes Code(s): L97.812 - Non-pressure chronic ulcer of other part of right lower leg with fat layer exposed (2) DVT of lower extremity, bilateral Status: Chronic Current Visit: Yes Code(s): I82.403 - Acute embolism and thrombosis of unspecified deep veins of lower extremity, bilateral (3) Diabetic neuropathy associated with type 2 diabetes mellitus Status: Chronic Current Visit: Yes Code(s): E11.40 - Type 2 diabetes mellitus with diabetic neuropathy, unspecified (4) Type 2 diabetes mellitus Status: Chronic Current Visit: Yes Code(s): E11.9 - Type 2 diabetes mellitus without complications (5) Venous insufficiency of both lower extremities Status: Chronic Current Visit: Yes Code(s): I87.2 - Venous insufficiency (chronic) (peripheral) (6) Peripheral vascular disease of lower extremity with ulceration Status: Acute Current Visit: Yes Code(s): I73.9 - Peripheral vascular disease, unspecified; L97.909 - Non-pressure chronic ulcer of unspecified part of unspecified lower leg with unspecified severity Type of Wound Date of Service: 12/24/19 Chief Complaint: Right lower medial vascular ulcer History of Wound: 79-year-old white male diabetic with history of DVTs driving home from [place] approximately 3 weeks ago developed an ulcer even though he is wearing his compression stockings on his right inner calf. Has been trying to use his own medications not working. Does have history of MRSA we will culture today and start him on new regimen of dressings Progress of Wound: She was came back 2 different staph 1 MRSA of the other epidermis. Patient is only been on Zyvox for 1 day not much movement on the healing of the ulcer still looks clean. We will do 1 more week of Aquacel extra we applied for skin substitutes. Using his double layer Tubigrip as well and no increase in swelling - Physical Exam Vital Signs Temp Pulse Resp BP 97.8 F 64 18 135/68 H 12/24/19 09:20 12/24/19 09:20 12/24/19 09:20 12/24/19 09:20 General: Oriented x3, Cooperative, Well developed HEENT: Atraumatic, PERRLA Oral: Moist Mucosa Neck: Supple, No JVD Lungs: Clear to auscultation, Normal air movement Cardiovascular: Regular rate, Regular Rhythm Abdomen: Bowel Sounds Present, Soft, Non Tender, No Hepato-splenomegaly Extremities: No clubbing, No edema Skin: Ulcer/ Wound - Ulcer right inner thigh calf from peripheral vascular disease blister that had broke open Wound Measurements and Assessment WC - Nurse 1 - General Ulcer Measurement Start: 12/17/19 09:44 Freq: Status: Active Protocol: Activity Type Activity Date Activity User E-Sign Co-Sign Detail Recorded Client Recorded Date Recorded By Document 12/24/19 09:20 RB [id number] 12/24/19 09:22 RB 12/24/19 09:20 Wound Center Nurse 1 [Ulcer Assessment] #12- R [facility] -Combined with other wound No -Current Size (cm) - Length 1.7 -Current Size (cm) - Width 5.7 -Current Size (cm) - Depth 0.1 -Total Square Cm 9.69 -Tunneling No -Undermining/Tunneling No -Circular Undermining No -Exudate Amt Small -Exudate Type Serosanguineous -Wound Margin Flat & Intact -Granulation Amt Medium (34-66%) -Granulation Quality Red -Slough/Fibrin Yes -Necrosis Amt Small (1-33%) -Necrotic Tissue Type Adherent Slough -Structure Exposed N/A -Texture (Sharri-wound Skin Appearance) Assessed -Moisture (Sharri-wound Skin Appearance Assessed,Dry/ ) Scaly -Color (Sharri-wound Skin Appearance) Assessed, Hemosiderin Staining -Temperature (Sharri-wound Skin No Abnormality Appearance) (Pt Warm) -Tenderness on Palpation (Sharri-wound No Skin Appearance) -Ulcer Cleansing Wound Cleanser -Foul Odor after Cleansing No -Anesthetic Used 4% Lidocaine Solution [Edema Assessment] -Lower Limb Edema Present Yes -Right Calf (cm) 41 -Right Ankle (cm) 27 WC - Nurse 2 - General Ulcer CM Notes Start: 12/17/19 09:44 Freq: Status: Active Protocol: Activity Type Activity Date Activity User E-Sign Co-Sign Detail Recorded Client Recorded Date Recorded By Document 12/24/19 09:32 MW [id number] 12/24/19 09:34 MW 12/24/19 09:32 Wound Center Nurse 2 [Procedure/Treatment] #12- R [facility] -Time 09:34 -Correct Patient Yes -Correct Side, Site, Position Yes -Correct Procedure Yes -Procedure Performed Yes -Type of Procedure Debridement -Clinical Debridement Subcutaneous -Post Debridement Size (cm) - Length 1.7 -Post Debridement Size (cm) - Width 1.7 -Post Debridement Size (cm) - Depth 0.2 -Total Square Cm 2.89 -Wound/Ulcer Outcome Not Healed -Ulcer Cleansing Rinsed/ Irrigated with Saline -Foul Odor after Cleansing No -Bioengineered Tissue No -Bleeding Controlled with Pressure -Offloading No -Treatment Response Procedure Tolerated Well [See Physician Procedure note for Specifics] Pain Scale: 0-10 Numeric [Pain] -Is Patient Pain Free? Yes Musculoskeletal: No Tenderness to Palpation of Joints or Extremities Lymphatic: No Cervical, Supraclavicular, or Inguinal Adenopathy Neurological: Cranial nerves II-XII grossly intact, Neuro grossly intact Psych/Mental Status: Normal Affect, Appropriate Debridement Note Post-Debridement Measurements/Treatment WC - Nurse 2 - General Ulcer CM Notes Start: 12/17/19 09:44 Freq: Status: Active Protocol: Activity Type Activity Date Activity User E-Sign Co-Sign Detail Recorded Client Recorded Date Recorded By Document 12/17/19 10:15 MW [id number] 12/17/19 10:18 MW Document 12/24/19 09:32 MW [id number] 12/24/19 09:34 MW 12/17/19 12/24/19 10:15 09:32 Wound Center Nurse 2 #12- R [facility] -Time 10:16 09:34 -Correct Patient Yes Yes -Correct Side, Site, Position Yes Yes -Correct Procedure Yes Yes -Procedure Performed Yes Yes -Type of Procedure Debridement Debridement -Clinical Debridement Subcutaneous Subcutaneous -Post Debridement Size (cm) - Length 1.5 1.7 -Post Debridement Size (cm) - Width 1.2 1.7 -Post Debridement Size (cm) - Depth 0.2 0.2 -Total Square Cm 1.80 2.89 -Wound/Ulcer Outcome Not Healed Not Healed -Ulcer Cleansing Rinsed/ Rinsed/ Irrigated with Irrigated with Saline Saline -Foul Odor after Cleansing No No -Bioengineered Tissue No No -Bleeding Controlled with Pressure Pressure -Offloading No No -Treatment Response Procedure Procedure Tolerated Well Tolerated Well Pain Scale: 0-10 Numeric Is Patient Pain Free? Yes Yes Wound debrided: Right lower leg ulcer Type of Debridement: Excisional debridement Anesthesia Used: 5% Lidocaine Gel Depth: Down to and including healthy tissue, in the subcutaneous layer Percentage of wound debrided: 100 Instrument Used: 5mm curette Tissue Removed: Fibrin Severity: Limited To Skin Breakdown Amount of bleeding with debridement: Mild Bleeding Controlled with: Compression and gauze Patient tolerated procedure well Assessment/Plan Active Problems (Last Updated 02/24/19 @ 11:37 by Ivory Smiley) Type 2 diabetes mellitus (Chronic) Diabetic neuropathy associated with type 2 diabetes mellitus (Chronic) Venous insufficiency of both lower extremities (Chronic) Non-pressure chronic ulcer of other part of right lower leg with fat layer exposed (Acute) DVT of lower extremity, bilateral (Chronic) Peripheral vascular disease of lower extremity with ulceration (Acute) Assessment: Venous insufficiency with ulcers. Ulcer right calf nonhealing. History of MRSA. History of DVTs Plan: Wash right leg with antibacterial soap. Apply Aquacel extra to ulcer base moistened cover with Adaptic gauze dressing and Nnamdi. Double layer Tubigrip right leg. Taking Zyvox 600 mg twice daily for 14 days. Follow-up in 1 week
[2019-12-31 09:39] VITALS: BP 184/76; PULSE 60; RESP 18; TEMP 36; BMI 33.9
--- NOTE | 2019-12-31 10:09 | PCM.WC.PN ---
(1) Non-pressure chronic ulcer of other part of right lower leg with fat layer exposed Status: Acute Current Visit: Yes Code(s): L97.812 - Non-pressure chronic ulcer of other part of right lower leg with fat layer exposed (2) DVT of lower extremity, bilateral Status: Chronic Current Visit: Yes Code(s): I82.403 - Acute embolism and thrombosis of unspecified deep veins of lower extremity, bilateral (3) Diabetic neuropathy associated with type 2 diabetes mellitus Status: Chronic Current Visit: Yes Code(s): E11.40 - Type 2 diabetes mellitus with diabetic neuropathy, unspecified (4) Type 2 diabetes mellitus Status: Chronic Current Visit: Yes Code(s): E11.9 - Type 2 diabetes mellitus without complications (5) Venous insufficiency of both lower extremities Status: Chronic Current Visit: Yes Code(s): I87.2 - Venous insufficiency (chronic) (peripheral) (6) Peripheral vascular disease of lower extremity with ulceration Status: Acute Current Visit: Yes Code(s): I73.9 - Peripheral vascular disease, unspecified; L97.909 - Non-pressure chronic ulcer of unspecified part of unspecified lower leg with unspecified severity Type of Wound Date of Service: 12/31/19 Chief Complaint: Right lower medial vascular ulcer History of Wound: 79-year-old white male diabetic with history of DVTs driving home from [place] approximately 3 weeks ago developed an ulcer even though he is wearing his compression stockings on his right inner calf. Has been trying to use his own medications not working. Does have history of MRSA we will culture today and start him on new regimen of dressings Progress of Wound: he was came back with 2 different staph 1 MRSA of the other epidermis. Patient is only been on Zyvox for 1 day not much movement on the healing of the ulcer still looks clean. Started the epi fix #1 to the right medial lower extremity with a disc applied tolerated well and he is to continue using his double layer Tubigrip as well and no increase in swelling - Physical Exam Vital Signs Temp Pulse Resp BP 96.8 F L 60 18 184/76 H 12/31/19 09:39 12/31/19 09:39 12/31/19 09:39 12/31/19 09:39 General: Oriented x3, Cooperative, Well developed HEENT: Atraumatic, PERRLA Oral: Moist Mucosa Neck: Supple, No JVD Lungs: Clear to auscultation, Normal air movement Cardiovascular: Regular rate, Regular Rhythm Abdomen: Bowel Sounds Present, Soft, Non Tender, No Hepato-splenomegaly Extremities: No clubbing, No edema Skin: Ulcer/ Wound - Right medial ulcer lower extremity Wound Measurements and Assessment WC - Nurse 1 - General Ulcer Measurement Start: 12/17/19 09:44 Freq: Status: Active Protocol: Activity Type Activity Date Activity User E-Sign Co-Sign Detail Recorded Client Recorded Date Recorded By Document 12/31/19 09:39 RB [id number] 12/31/19 09:41 RB 12/31/19 09:39 Wound Center Nurse 1 [Ulcer Assessment] #12- R [facility] -Combined with other wound No -Current Size (cm) - Length 2 -Current Size (cm) - Width 1.5 -Current Size (cm) - Depth 0.1 -Total Square Cm 3.0 -Photo Taken No -Tunneling No -Undermining/Tunneling No -Circular Undermining No -Exudate Amt Medium -Exudate Type Serosanguineous -Wound Margin Flat & Intact -Granulation Amt Medium (34-66%) -Granulation Quality Red -Slough/Fibrin Yes -Necrosis Amt Small (1-33%) -Necrotic Tissue Type Adherent Slough -Structure Exposed N/A -Texture (Sharri-wound Skin Appearance) Assessed -Moisture (Sharri-wound Skin Appearance Assessed ) -Color (Sharri-wound Skin Appearance) Hemosiderin Staining -Temperature (Sharri-wound Skin No Abnormality Appearance) (Pt Warm) -Tenderness on Palpation (Sharri-wound No Skin Appearance) -Ulcer Cleansing Wound Cleanser -Foul Odor after Cleansing No -Anesthetic Used 4% Lidocaine Solution [Edema Assessment] -Lower Limb Edema Present Yes -Right Calf (cm) 43.5 -Right Ankle (cm) 27 WC - Nurse 2 - General Ulcer CM Notes Start: 12/17/19 09:44 Freq: Status: Active Protocol: Activity Type Activity Date Activity User E-Sign Co-Sign Detail Recorded Client Recorded Date Recorded By Document 12/31/19 09:54 MW [id number] 12/31/19 09:56 MW 12/31/19 09:54 Wound Center Nurse 2 [Procedure/Treatment] #12- R [facility] -Time 09:55 -Correct Patient Yes -Correct Side, Site, Position Yes -Correct Procedure Yes -Procedure Performed Yes -Type of Procedure Debridement -Clinical Debridement Subcutaneous -Post Debridement Size (cm) - Length 2.1 -Post Debridement Size (cm) - Width 2.0 -Post Debridement Size (cm) - Depth 0.2 -Total Square Cm 4.20 -Wound/Ulcer Outcome Not Healed -Ulcer Cleansing Rinsed/ Irrigated with Saline -Foul Odor after Cleansing No -Bioengineered Tissue Yes -Type of bioengineered Tissue EPIFIX -Expiration Date 09/13/24 -Product Lot Number [id number] -Percent Used 100 -Saline Lot Number [id number] -Bleeding Controlled with Pressure -Offloading No -Treatment Response Procedure Tolerated Well [See Physician Procedure note for Specifics] Pain Scale: 0-10 Numeric [Pain] -Is Patient Pain Free? Yes Musculoskeletal: No Tenderness to Palpation of Joints or Extremities Lymphatic: No Cervical, Supraclavicular, or Inguinal Adenopathy Neurological: Cranial nerves II-XII grossly intact, Neuro grossly intact Psych/Mental Status: Normal Affect, Appropriate Debridement Note Post-Debridement Measurements/Treatment WC - Nurse 2 - General Ulcer CM Notes Start: 12/17/19 09:44 Freq: Status: Active Protocol: Activity Type Activity Date Activity User E-Sign Co-Sign Detail Recorded Client Recorded Date Recorded By Document 12/17/19 10:15 MW [id number] 12/17/19 10:18 MW Document 12/24/19 09:32 MW [id number] 12/24/19 09:34 MW Document 12/31/19 09:54 MW [id number] 12/31/19 09:56 MW 12/17/19 12/24/19 12/31/19 10:15 09:32 09:54 Wound Center Nurse 2 #12- R [facility] -Time 10:16 09:34 09:55 -Correct Patient Yes Yes Yes -Correct Side, Site, Position Yes Yes Yes -Correct Procedure Yes Yes Yes -Procedure Performed Yes Yes Yes -Type of Procedure Debridement Debridement Debridement -Clinical Debridement Subcutaneous Subcutaneous Subcutaneous -Post Debridement Size (cm) - Length 1.5 1.7 2.1 -Post Debridement Size (cm) - Width 1.2 1.7 2.0 -Post Debridement Size (cm) - Depth 0.2 0.2 0.2 -Total Square Cm 1.80 2.89 4.20 -Wound/Ulcer Outcome Not Healed Not Healed Not Healed -Ulcer Cleansing Rinsed/ Rinsed/ Rinsed/ Irrigated with Irrigated with Irrigated with Saline Saline Saline -Foul Odor after Cleansing No No No -Bioengineered Tissue No No Yes -Type of bioengineered Tissue EPIFIX -Expiration Date 09/13/24 -Product Lot Number [id number] -Percent Used 100 -Saline Lot Number [id number] -Bleeding Controlled with Pressure Pressure Pressure -Offloading No No No -Treatment Response Procedure Procedure Procedure Tolerated Well Tolerated Well Tolerated Well Pain Scale: 0-10 Numeric Is Patient Pain Free? Yes Yes Yes Wound debrided: Right medial lower extremity Type of Debridement: Excisional debridement Anesthesia Used: 5% Lidocaine Gel Depth: Down to and including healthy tissue Instrument Used: 7mm curette Tissue Removed: Fibrin Severity: Limited To Skin Breakdown Amount of bleeding with debridement: Mild Bleeding Controlled with: Compression and gauze Patient tolerated procedure well Assessment/Plan Active Problems (Last Updated 02/24/19 @ 11:37 by Ivory Smiley) Type 2 diabetes mellitus (Chronic) Diabetic neuropathy associated with type 2 diabetes mellitus (Chronic) Venous insufficiency of both lower extremities (Chronic) Non-pressure chronic ulcer of other part of right lower leg with fat layer exposed (Acute) DVT of lower extremity, bilateral (Chronic) Peripheral vascular disease of lower extremity with ulceration (Acute) Assessment: Venous insufficiency with ulcers. Ulcer right calf nonhealing. History of MRSA. History of DVTs Plan: Applied epi fix #1 with Adaptic and Steri-Strips gauze dressing. Patient is to leave alone no showering for that 1 leg for 1 week. Follow-up next Sunday
[2020-01-07 10:34] VITALS: BP 146/57; PULSE 55; RESP 18; TEMP 36.4; BMI 33.9
--- NOTE | 2020-01-07 12:03 | PN.PCM_ITS ---
(1) Non-pressure chronic ulcer of other part of right lower leg with fat layer exposed Status: Acute Current Visit: Yes Code(s): L97.812 - Non-pressure chronic ulcer of other part of right lower leg with fat layer exposed (2) DVT of lower extremity, bilateral Status: Chronic Current Visit: Yes Code(s): I82.403 - Acute embolism and thrombosis of unspecified deep veins of lower extremity, bilateral (3) Diabetic neuropathy associated with type 2 diabetes mellitus Status: Chronic Current Visit: Yes Code(s): E11.40 - Type 2 diabetes mellitus with diabetic neuropathy, unspecified (4) Type 2 diabetes mellitus Status: Chronic Current Visit: Yes Qualifiers: Diabetes mellitus care home insulin use: without care home use Code(s): E11.9 - Type 2 diabetes mellitus without complications (5) Venous insufficiency of both lower extremities Status: Chronic Current Visit: Yes Code(s): I87.2 - Venous insufficiency (chronic) (peripheral) (6) Peripheral vascular disease of lower extremity with ulceration Status: Acute Current Visit: Yes Code(s): I73.9 - Peripheral vascular disease, unspecified; L97.909 - Non-pressure chronic ulcer of unspecified part of unspecified lower leg with unspecified severity Type of Wound Date of Service: 01/07/20 Chief Complaint: Right lower medial vascular ulcer History of Wound: 79-year-old white male diabetic with history of DVTs driving home from [place] approximately 3 weeks ago developed an ulcer even though he is wearing his compression stockings on his right inner calf. Has been trying to use his own medications not working. Does have history of MRSA we will culture today and start him on new regimen of dressings Progress of Wound: he was came back with 2 different staph 1 MRSA of the other epidermis. Patient is only been on Zyvox for 1 day not much movement on the healing of the ulcer still looks clean. epi fix #2 to the right medial lower extremity with a disc applied tolerated well and he is to continue using his double layer Tubigrip as well and no increase in swelling - Physical Exam Vital Signs Temp Pulse Resp BP 97.5 F L 55 L 18 146/57 H 01/07/20 10:34 01/07/20 10:34 01/07/20 10:34 01/07/20 10:34 General: Oriented x3, Cooperative, Well developed HEENT: Atraumatic, PERRLA Oral: Moist Mucosa Neck: Supple, No JVD Lungs: Clear to auscultation, Normal air movement Cardiovascular: Regular rate, Regular Rhythm Abdomen: Bowel Sounds Present, Soft, Non Tender, No Hepato-splenomegaly Extremities: No clubbing, No edema Skin: Ulcer/ Wound - Right medial lower leg Wound Measurements and Assessment WC - Nurse 1 - General Ulcer Measurement Start: 12/17/19 09:44 Freq: Status: Active Protocol: Activity Type Activity Date Activity User E-Sign Co-Sign Detail Recorded Client Recorded Date Recorded By Document 01/07/20 10:34 RB [id number] 01/07/20 10:37 RB 01/07/20 10:34 Wound Center Nurse 1 [Ulcer Assessment] #12- R [facility]ER -Combined with other wound No -Current Size (cm) - Length 2.2 -Current Size (cm) - Width 1.5 -Current Size (cm) - Depth 0.1 -Total Square Cm 3.30 -Photo Taken Yes -Tunneling No -Undermining/Tunneling No -Circular Undermining No -Exudate Amt Medium -Exudate Type Serosanguineous -Wound Margin Flat & Intact -Granulation Amt Medium (34-66%) -Granulation Quality [place] -Slough/Fibrin Yes -Necrosis Amt Small (1-33%) -Necrotic Tissue Type Adherent Slough -Structure Exposed N/A -Texture (Sharri-wound Skin Appearance) Assessed -Moisture (Sharri-wound Skin Appearance Assessed ) -Color (Sharri-wound Skin Appearance) Assessed, Hemosiderin Staining -Temperature (Sharri-wound Skin No Abnormality Appearance) (Pt Warm) -Tenderness on Palpation (Sharri-wound No Skin Appearance) -Ulcer Cleansing Wound Cleanser -Foul Odor after Cleansing No -Anesthetic Used 4% Lidocaine Solution [Edema Assessment] -Lower Limb Edema Present Yes -Right Calf (cm) 41.5 -Right Ankle (cm) 29.5 Musculoskeletal: No Tenderness to Palpation of Joints or Extremities Lymphatic: No Cervical, Supraclavicular, or Inguinal Adenopathy Neurological: Cranial nerves II-XII grossly intact, Neuro grossly intact Psych/Mental Status: Normal Affect, Appropriate, Alert and oriented to time, place, person, mood and affect Debridement Note Post-Debridement Measurements/Treatment WC - Nurse 2 - General Ulcer CM Notes Start: 12/17/19 09:44 Freq: Status: Active Protocol: Activity Type Activity Date Activity User E-Sign Co-Sign Detail Recorded Client Recorded Date Recorded By Document 12/17/19 10:15 MW [id number] 12/17/19 10:18 MW Document 12/24/19 09:32 MW [id number] 12/24/19 09:34 MW Document 12/31/19 09:54 MW [id number] 12/31/19 09:56 MW 12/17/19 12/24/19 12/31/19 10:15 09:32 09:54 Wound Center Nurse 2 #12- R [facility] -Time 10:16 09:34 09:55 -Correct Patient Yes Yes Yes -Correct Side, Site, Position Yes Yes Yes -Correct Procedure Yes Yes Yes -Procedure Performed Yes Yes Yes -Type of Procedure Debridement Debridement Debridement -Clinical Debridement Subcutaneous Subcutaneous Subcutaneous -Post Debridement Size (cm) - Length 1.5 1.7 2.1 -Post Debridement Size (cm) - Width 1.2 1.7 2.0 -Post Debridement Size (cm) - Depth 0.2 0.2 0.2 -Total Square Cm 1.80 2.89 4.20 -Wound/Ulcer Outcome Not Healed Not Healed Not Healed -Ulcer Cleansing Rinsed/ Rinsed/ Rinsed/ Irrigated with Irrigated with Irrigated with Saline Saline Saline -Foul Odor after Cleansing No No No -Bioengineered Tissue No No Yes -Type of bioengineered Tissue EPIFIX -Expiration Date 09/13/24 -Product Lot Number [id number] -Percent Used 100 -Saline Lot Number [id number] -Bleeding Controlled with Pressure Pressure Pressure -Offloading No No No -Treatment Response Procedure Procedure Procedure Tolerated Well Tolerated Well Tolerated Well Pain Scale: 0-10 Numeric Is Patient Pain Free? Yes Yes Yes Wound debrided: Right medial lower leg Type of Debridement: Excisional debridement Anesthesia Used: 5% Lidocaine Gel Depth: Down to and including healthy tissue, in the subcutaneous layer Percentage of wound debrided: 100 Instrument Used: 5mm curette Tissue Removed: Fibrin Severity: Limited To Skin Breakdown Amount of bleeding with debridement: None Bleeding Controlled with: Pressure Patient tolerated procedure well Assessment/Plan Active Problems (Last Updated 02/24/19 @ 11:37 by Ivory Smiley) Type 2 diabetes mellitus (Chronic) Diabetic neuropathy associated with type 2 diabetes mellitus (Chronic) Venous insufficiency of both lower extremities (Chronic) Non-pressure chronic ulcer of other part of right lower leg with fat layer exposed (Acute) DVT of lower extremity, bilateral (Chronic) Peripheral vascular disease of lower extremity with ulceration (Acute) Assessment: Venous insufficiency with ulcers. Ulcer right calf nonhealing. History of MRSA. History of DVTs Plan: Applied epi fix #1 with Adaptic and Steri-Strips gauze dressing. Patient is to leave alone no showering for that 1 leg for 1 week. Follow-up next Sunday
== END 2020-01-13 23:59 ==
LOC: WC 10:30
PROVIDERS: PCP Family Medicine; Referring Provider Nurse Practitioner; Visit Provider Nurse Practitioner
DX: I87.2 Venous insufficiency (chronic) (peripheral) (principal); L97.812 Non-pressure chronic ulcer of other part of right lower leg with fat layer exposed; E11.40 Type 2 diabetes mellitus with diabetic neuropathy, unspecified; E11.51 Type 2 diabetes mellitus with diabetic peripheral angiopathy without gangrene; I82.403 Acute embolism and thrombosis of unspecified deep veins of lower extremity, bilateral; J44.9 Chronic obstructive pulmonary disease, unspecified; I10 Essential (primary) hypertension; E78.5 Hyperlipidemia, unspecified; K21.9 Gastro-esophageal reflux disease without esophagitis; Z79.01 Long term (current) use of anticoagulants; Z79.82 Long term (current) use of aspirin; Z79.4 Long term (current) use of insulin; Z79.51 Long term (current) use of inhaled steroids; Z79.899 Other long term (current) drug therapy; Z86.718 Personal history of other venous thrombosis and embolism; Z86.14 Personal history of Methicillin resistant Staphylococcus aureus infection
CPT/HCPCS: 11042; 15271; 87070; 87075; 87077; 87186; 87205; 99213; Q4186; G0463

== ENCOUNTER 2020-02-11 09:30 | Outpatient (RCR) | payer MEDICARE, OTHER, SELFPAY ==
[2020-01-14 00:34] VITALS: BP 146/57; PULSE 55; RESP 18; TEMP 36.4
[2020-01-14 09:33] VITALS: BP 134/52; PULSE 63; RESP 20; TEMP 36.6; BMI 33.9
--- NOTE | 2020-01-14 10:53 | PN.PCM_ITS ---
(1) Leg wound, right Status: Acute Current Visit: Yes Qualifiers: Encounter type: subsequent encounter Qualified Code(s): S81.801D - Unspecified open wound, right lower leg, subsequent encounter Code(s): S81.801A - Unspecified open wound, right lower leg, initial encounter (2) Non-pressure chronic ulcer of other part of right lower leg with fat layer exposed Status: Acute Current Visit: Yes Code(s): L97.812 - Non-pressure chronic ulcer of other part of right lower leg with fat layer exposed (3) DVT of lower extremity, bilateral Status: Chronic Current Visit: Yes Code(s): I82.403 - Acute embolism and thrombosis of unspecified deep veins of lower extremity, bilateral (4) Diabetic neuropathy associated with type 2 diabetes mellitus Status: Chronic Current Visit: Yes Code(s): E11.40 - Type 2 diabetes mellitus with diabetic neuropathy, unspecified (5) Edema of lower extremity Status: Chronic Current Visit: Yes Code(s): R60.0 - Localized edema Type of Wound Date of Service: 01/14/20 Chief Complaint: Right lower medial vascular ulcer History of Wound: 79-year-old white male diabetic with history of DVTs driving home from [place] approximately 3 weeks ago developed an ulcer even though he is wearing his compression stockings on his right inner calf. Has been trying to use his own medications not working. Does have history of MRSA we will culture today and start him on new regimen of dressings Progress of Wound: he was came back with 2 different staph 1 MRSA of the other epidermis. Patient is only been on Zyvox for 1 day not much movement on the healing of the ulcer still looks clean. epi fix #3 to the right medial lower extremity with a disc applied tolerated well and he is to continue using his double layer Tubigrip as well and no increase in swelling - Physical Exam Vital Signs Temp Pulse Resp BP 97.9 F 63 20 H 134/52 H 01/14/20 09:33 01/14/20 09:33 01/14/20 09:33 01/14/20 09:33 General: Oriented x3, Cooperative, Well developed HEENT: Atraumatic, PERRLA Oral: Moist Mucosa Neck: Supple, No JVD Lungs: Clear to auscultation, Normal air movement Cardiovascular: Regular rate, Regular Rhythm Abdomen: Bowel Sounds Present, Soft, Non Tender, No Hepato-splenomegaly Extremities: No clubbing, No edema Skin: Ulcer/ Wound - Right medial peripheral vascular disease ulcer Wound Measurements and Assessment WC - Nurse 1 - General Ulcer Measurement Start: 01/14/20 09:33 Freq: Status: Active Protocol: Activity Type Activity Date Activity User E-Sign Co-Sign Detail Recorded Client Recorded Date Recorded By Document 01/14/20 09:33 BS [id number] 01/14/20 09:45 BS 01/14/20 09:33 Wound Center Nurse 1 [Ulcer Assessment] #12- R MEDIAL LE CLUSTER -Combined with other wound No -Current Size (cm) - Length 4.0 -Current Size (cm) - Width 3.0 -Current Size (cm) - Depth 0.1 -Total Square Cm 12.00 -Photo Taken No -Granulation Quality [place],Red -Texture (Sharri-wound Skin Appearance) Assessed, Scarring -Moisture (Sharri-wound Skin Appearance Assessed,Dry/ ) Scaly -Color (Sharri-wound Skin Appearance) Assessed, Hemosiderin Staining -Temperature (Sharri-wound Skin No Abnormality Appearance) (Pt Warm) -Tenderness on Palpation (Sharri-wound No Skin Appearance) -Ulcer Cleansing Soap and water -Foul Odor after Cleansing No -Anesthetic Used 4% Lidocaine Solution [Edema Assessment] -Lower Limb Edema Present Yes -Right Calf (cm) 42.5 -Point of measurement (cm from the 29.0 medial instep) -Right Ankle (cm) 30.0 -Point of Measurement (cm from the 4.0 medial instep) WC - Nurse 2 - General Ulcer CM Notes Start: 01/14/20 09:33 Freq: Status: Active Protocol: Activity Type Activity Date Activity User E-Sign Co-Sign Detail Recorded Client Recorded Date Recorded By Document 01/14/20 10:13 MW [id number] 01/14/20 10:15 MW 01/14/20 10:13 Wound Center Nurse 2 [Procedure/Treatment] #12- R MEDIAL LE CLUSTER -Time 10:14 -Correct Patient Yes -Correct Side, Site, Position Yes -Correct Procedure Yes -Procedure Performed Yes -Type of Procedure Debridement -Clinical Debridement Subcutaneous -Post Debridement Size (cm) - Length 0.9 -Post Debridement Size (cm) - Width 0.5 -Post Debridement Size (cm) - Depth 0.1 -Total Square Cm 0.45 -Wound/Ulcer Outcome Not Healed -Ulcer Cleansing Rinsed/ Irrigated with Saline -Foul Odor after Cleansing No -Bioengineered Tissue Yes -Type of bioengineered Tissue EPIFIX -Expiration Date 09/13/24 -Product Lot Number [id number] -Percent Used 100 -Saline Lot Number [id number] -Bleeding Controlled with Pressure -Offloading No -Treatment Response Procedure Tolerated Well [See Physician Procedure note for Specifics] Pain Scale: 0-10 Numeric [Pain] -Is Patient Pain Free? Yes Musculoskeletal: No Tenderness to Palpation of Joints or Extremities Lymphatic: No Cervical, Supraclavicular, or Inguinal Adenopathy Neurological: Cranial nerves II-XII grossly intact, Neuro grossly intact Psych/Mental Status: Normal Affect, Appropriate, Alert and oriented to time, place, person, mood and affect Debridement Note Post-Debridement Measurements/Treatment WC - Nurse 2 - General Ulcer CM Notes Start: 01/14/20 09:33 Freq: Status: Active Protocol: Activity Type Activity Date Activity User E-Sign Co-Sign Detail Recorded Client Recorded Date Recorded By Document 01/14/20 10:13 MW [id number] 01/14/20 10:15 MW 01/14/20 10:13 Wound Center Nurse 2 #12- R MEDIAL LE CLUSTER -Time 10:14 -Correct Patient Yes -Correct Side, Site, Position Yes -Correct Procedure Yes -Procedure Performed Yes -Type of Procedure Debridement -Clinical Debridement Subcutaneous -Post Debridement Size (cm) - Length 0.9 -Post Debridement Size (cm) - Width 0.5 -Post Debridement Size (cm) - Depth 0.1 -Total Square Cm 0.45 -Wound/Ulcer Outcome Not Healed -Ulcer Cleansing Rinsed/ Irrigated with Saline -Foul Odor after Cleansing No -Bioengineered Tissue Yes -Type of bioengineered Tissue EPIFIX -Expiration Date 09/13/24 -Product Lot Number [id number] -Percent Used 100 -Saline Lot Number [id number] -Bleeding Controlled with Pressure -Offloading No -Treatment Response Procedure Tolerated Well Pain Scale: 0-10 Numeric Is Patient Pain Free? Yes Wound debrided: Medial ankle ulcer Type of Debridement: Selective debridement Anesthesia Used: 5% Lidocaine Gel Depth: Down to and including healthy tissue Instrument Used: 3mm curette Tissue Removed: Fibrin Severity: Limited To Skin Breakdown Amount of bleeding with debridement: Mild Bleeding Controlled with: Compression and gauze Patient tolerated procedure well Assessment/Plan Active Problems (Last Updated 02/24/19 @ 11:37 by Ivory Smiley) Leg wound, right (Acute) Diabetic neuropathy associated with type 2 diabetes mellitus (Chronic) Edema of lower extremity (Chronic) Non-pressure chronic ulcer of other part of right lower leg with fat layer exposed (Acute) DVT of lower extremity, bilateral (Chronic) Assessment: Venous insufficiency with ulcers. Ulcer right calf nonhealing. History of MRSA. History of DVTs Plan: Applied epi fix #3with Adaptic and Steri-Strips gauze dressing. Patient is to leave alone no showering for that 1 leg for 1 week. Follow-up next Sunday
[2020-01-21 09:38] VITALS: BP 115/55; PULSE 74; RESP 18; TEMP 36.5; BMI 33.9
--- NOTE | 2020-01-21 10:07 | PCM.WC.PN ---
(1) Leg wound, right Status: Acute Current Visit: Yes Qualifiers: Encounter type: subsequent encounter Qualified Code(s): S81.801D - Unspecified open wound, right lower leg, subsequent encounter Code(s): S81.801A - Unspecified open wound, right lower leg, initial encounter (2) Non-pressure chronic ulcer of other part of right lower leg with fat layer exposed Status: Acute Current Visit: Yes Code(s): L97.812 - Non-pressure chronic ulcer of other part of right lower leg with fat layer exposed (3) DVT of lower extremity, bilateral Status: Chronic Current Visit: Yes Code(s): I82.403 - Acute embolism and thrombosis of unspecified deep veins of lower extremity, bilateral (4) Diabetic neuropathy associated with type 2 diabetes mellitus Status: Chronic Current Visit: Yes Code(s): E11.40 - Type 2 diabetes mellitus with diabetic neuropathy, unspecified (5) Edema of lower extremity Status: Chronic Current Visit: Yes Code(s): R60.0 - Localized edema Type of Wound Date of Service: 01/21/20 Chief Complaint: Right lower medial vascular ulcer History of Wound: 79-year-old white male diabetic with history of DVTs driving home from [place] approximately 3 weeks ago developed an ulcer even though he is wearing his compression stockings on his right inner calf. Has been trying to use his own medications not working. Does have history of MRSA we will culture today and start him on new regimen of dressings Progress of Wound: he was came back with 2 different staph 1 MRSA of the other epidermis. Patient is only been on Zyvox for 1 day not much movement on the healing of the ulcer still looks clean. epi fix #4 to the right medial lower extremity applied with Aquacel extra over top. Tolerated well and he is to continue using his double layer Tubigrip as well and no increase in swelling - Physical Exam Vital Signs Temp Pulse Resp BP 97.7 F L 74 18 115/55 L 01/21/20 09:38 01/21/20 09:38 01/21/20 09:38 01/21/20 09:38 General: Oriented x3, Cooperative, Well developed HEENT: Atraumatic, PERRLA Oral: Moist Mucosa Neck: Supple, No JVD Lungs: Clear to auscultation, Normal air movement Cardiovascular: Regular rate, Regular Rhythm Abdomen: Bowel Sounds Present, Soft, Non Tender, No Hepato-splenomegaly Extremities: No clubbing, No edema Skin: Ulcer/ Wound - Venous ulcer right lower extremity ankle area Wound Measurements and Assessment WC - Nurse 1 - General Ulcer Measurement Start: 01/14/20 09:33 Freq: Status: Active Protocol: Activity Type Activity Date Activity User E-Sign Co-Sign Detail Recorded Client Recorded Date Recorded By Document 01/21/20 09:38 CS [id number] 01/21/20 09:48 CS 01/21/20 09:38 Wound Center Nurse 1 [Ulcer Assessment] #12- R MEDIAL LE CLUSTER -Combined with other wound No -Current Size (cm) - Length 0.6 -Current Size (cm) - Width 0.5 -Current Size (cm) - Depth 0.1 -Total Square Cm 0.30 -Photo Taken No -Epithelialization None Present -Tunneling No -Undermining/Tunneling No -Circular Undermining No -Exudate Amt Medium -Exudate Type Serosanguineous -Wound Margin Distinct, Outline Attached -Granulation Amt Medium (34-66%) -Granulation Quality Red -Slough/Fibrin Yes -Necrosis Amt None Present (0 %) -Texture (Sharri-wound Skin Appearance) Excoriation, Scarring -Moisture (Sharri-wound Skin Appearance No Abnormality, ) Assessed -Color (Sharri-wound Skin Appearance) Hemosiderin Staining -Temperature (Sharri-wound Skin No Abnormality Appearance) (Pt Warm) -Tenderness on Palpation (Sharri-wound No Skin Appearance) -Ulcer Cleansing Rinsed/ Irrigated with Saline -Foul Odor after Cleansing No -Anesthetic Used 4% Lidocaine Solution [Edema Assessment] -Lower Limb Edema Present No -Right Calf (cm) 43.5 -Right Ankle (cm) 27 - Nurse 2 - General Ulcer CM Notes Start: 01/14/20 09:33 Freq: Status: Active Protocol: Activity Type Activity Date Activity User E-Sign Co-Sign Detail Recorded Client Recorded Date Recorded By Document 01/21/20 09:59 MW [id number] 01/21/20 10:02 MW 01/21/20 09:59 Wound Center Nurse 2 [Procedure/Treatment] #12- R MEDIAL LE CLUSTER -Time 10:01 -Correct Patient Yes -Correct Side, Site, Position Yes -Correct Procedure Yes -Procedure Performed No -Wound/Ulcer Outcome Not Healed -Ulcer Cleansing Rinsed/ Irrigated with Saline -Foul Odor after Cleansing No -Bioengineered Tissue Yes -Type of bioengineered Tissue EPIFIX -Expiration Date 08/16/24 -Product Lot Number [id number] -Percent Used 100 -Saline Lot Number [id number] -Bleeding Controlled with Pressure -Offloading No -Treatment Response Procedure Tolerated Well [See Physician Procedure note for Specifics] Pain Scale: 0-10 Numeric [Pain] -Is Patient Pain Free? Yes Musculoskeletal: No Tenderness to Palpation of Joints or Extremities Lymphatic: No Cervical, Supraclavicular, or Inguinal Adenopathy Neurological: Cranial nerves II-XII grossly intact, Neuro grossly intact Psych/Mental Status: Normal Affect, Appropriate Debridement Note Post-Debridement Measurements/Treatment WC - Nurse 2 - General Ulcer CM Notes Start: 01/14/20 09:33 Freq: Status: Active Protocol: Activity Type Activity Date Activity User E-Sign Co-Sign Detail Recorded Client Recorded Date Recorded By Document 01/14/20 10:13 MW [id number] 01/14/20 10:15 MW Document 01/21/20 09:59 MW [id number] 01/21/20 10:02 MW 01/14/20 01/21/20 10:13 09:59 Wound Center Nurse 2 #12- R MEDIAL LE CLUSTER -Time 10:14 10:01 -Correct Patient Yes Yes -Correct Side, Site, Position Yes Yes -Correct Procedure Yes Yes -Procedure Performed Yes No -Type of Procedure Debridement -Clinical Debridement Subcutaneous -Post Debridement Size (cm) - Length 0.9 -Post Debridement Size (cm) - Width 0.5 -Post Debridement Size (cm) - Depth 0.1 -Total Square Cm 0.45 -Wound/Ulcer Outcome Not Healed Not Healed -Ulcer Cleansing Rinsed/ Rinsed/ Irrigated with Irrigated with Saline Saline -Foul Odor after Cleansing No No -Bioengineered Tissue Yes Yes -Type of bioengineered Tissue EPIFIX EPIFIX -Expiration Date 09/13/24 08/16/24 -Product Lot Number [id number] -Percent Used 100 100 -Saline Lot Number [id number] -Bleeding Controlled with Pressure Pressure -Offloading No No -Treatment Response Procedure Procedure Tolerated Well Tolerated Well Pain Scale: 0-10 Numeric Is Patient Pain Free? Yes Yes No debridement was completed today Assessment/Plan Active Problems (Last Updated 02/24/19 @ 11:37 by Ivory Smiley) Leg wound, right (Acute) Diabetic neuropathy associated with type 2 diabetes mellitus (Chronic) Edema of lower extremity (Chronic) Non-pressure chronic ulcer of other part of right lower leg with fat layer exposed (Acute) DVT of lower extremity, bilateral (Chronic) Assessment: Venous insufficiency with ulcers. Ulcer right calf nonhealing. History of MRSA. History of DVTs Plan: Applied epi fix #4 with wound veil and Steri-Strips Aquacel extra, gauze dressing. Patient is to leave alone no showering for that 1 leg for 1 week. Follow-up next Sunday
[2020-01-28 09:48] VITALS: BP 123/56; PULSE 67; RESP 16; TEMP 36.1; BMI 33.9
--- NOTE | 2020-01-28 11:28 | PN.PCM_ITS ---
(1) Leg wound, right Status: Acute Current Visit: Yes Qualifiers: Encounter type: subsequent encounter Qualified Code(s): S81.801D - Unspecified open wound, right lower leg, subsequent encounter Code(s): S81.801A - Unspecified open wound, right lower leg, initial encounter (2) Non-pressure chronic ulcer of other part of right lower leg with fat layer exposed Status: Acute Current Visit: Yes Code(s): L97.812 - Non-pressure chronic ulcer of other part of right lower leg with fat layer exposed (3) DVT of lower extremity, bilateral Status: Chronic Current Visit: Yes Code(s): I82.403 - Acute embolism and thrombosis of unspecified deep veins of lower extremity, bilateral (4) Diabetic neuropathy associated with type 2 diabetes mellitus Status: Chronic Current Visit: Yes Code(s): E11.40 - Type 2 diabetes mellitus with diabetic neuropathy, unspecified (5) Edema of lower extremity Status: Chronic Current Visit: Yes Code(s): R60.0 - Localized edema Type of Wound Date of Service: 01/28/20 Chief Complaint: Right lower medial vascular ulcer History of Wound: 79-year-old white male diabetic with history of DVTs driving home from [place] approximately 3 weeks ago developed an ulcer even though he is wearing his compression stockings on his right inner calf. Has been trying to use his own medications not working. Does have history of MRSA we will culture today and start him on new regimen of dressings Progress of Wound: He is developing punctuated open wounds in the surrounding tissue more of them in the last week. Patient states he thinks it is from not enough compression so we will add Andrzej wrap to his double layer Tubigrip. We will hold on the epi-fix and go back to Aquacel extra to wound beds and increase the compression and see if that makes a difference. He was came back with 2 different staph 1 MRSA of the other epidermis. - Physical Exam Vital Signs Temp Pulse Resp BP 97.0 F L 67 16 123/56 H 01/28/20 09:48 01/28/20 09:48 01/28/20 09:48 01/28/20 09:48 General: Oriented x3, Cooperative, Well developed HEENT: Atraumatic, PERRLA Oral: Moist Mucosa Neck: Supple, No JVD Lungs: Clear to auscultation, Normal air movement Cardiovascular: Regular rate, Regular Rhythm Abdomen: Bowel Sounds Present, Soft, Non Tender, No Hepato-splenomegaly Extremities: No clubbing, No edema Skin: Ulcer/ Wound - Peripheral vascular ulcers of the right medial ankle area from his peripheral vascular disease he has history of clots in his lower legs Wound Measurements and Assessment WC - Nurse 1 - General Ulcer Measurement Start: 01/14/20 09:33 Freq: Status: Active Protocol: Activity Type Activity Date Activity User E-Sign Co-Sign Detail Recorded Client Recorded Date Recorded By Document 01/28/20 09:48 CS [id number] 01/28/20 09:55 CS 01/28/20 09:48 Wound Center Nurse 1 [Ulcer Assessment] #12- R MEDIAL LE CLUSTER -Combined with other wound No -Current Size (cm) - Length 6.8 -Current Size (cm) - Width 8.0 -Current Size (cm) - Depth 0.1 -Total Square Cm 54.40 -Photo Taken No -Epithelialization Small 1-33% -Tunneling No -Undermining/Tunneling No -Circular Undermining No -Exudate Amt Small -Exudate Type Serosanguineous -Wound Margin Distinct, Outline Attached -Granulation Amt Large (67-100%) -Granulation Quality Red -Slough/Fibrin Yes -Necrosis Amt None Present (0 %) -Necrotic Tissue Type Adherent Slough -Structure Exposed N/A -Texture (Sharri-wound Skin Appearance) Scarring -Moisture (Sharri-wound Skin Appearance Dry/Scaly ) -Color (Sharri-wound Skin Appearance) Hemosiderin Staining -Temperature (Sharri-wound Skin No Abnormality Appearance) (Pt Warm) -Tenderness on Palpation (Sharri-wound No Skin Appearance) -Ulcer Cleansing Rinsed/ Irrigated with Saline -Foul Odor after Cleansing No -Anesthetic Used 4% Lidocaine Solution [Edema Assessment] -Lower Limb Edema Present No -Right Calf (cm) 43 -Right Ankle (cm) 27 WC - Nurse 2 - General Ulcer CM Notes Start: 01/14/20 09:33 Freq: Status: Active Protocol: Activity Type Activity Date Activity User E-Sign Co-Sign Detail Recorded Client Recorded Date Recorded By Document 01/28/20 10:04 MW [id number] 01/28/20 10:08 MW 01/28/20 10:04 Wound Center Nurse 2 [Procedure/Treatment] #12- R MEDIAL LE CLUSTER -Time 10:04 -Correct Patient Yes -Correct Side, Site, Position Yes -Correct Procedure Yes -Procedure Performed Yes -Type of Procedure Debridement -Clinical Debridement Subcutaneous -Post Debridement Size (cm) - Length 5.4 -Post Debridement Size (cm) - Width 5.5 -Post Debridement Size (cm) - Depth 0.4 -Total Square Cm 29.70 -Wound/Ulcer Outcome Not Healed -Ulcer Cleansing Rinsed/ Irrigated with Saline -Foul Odor after Cleansing No -Bioengineered Tissue No -Bleeding Controlled with Pressure -Offloading No -Treatment Response Procedure Tolerated Well [See Physician Procedure note for Specifics] Pain Scale: 0-10 Numeric [Pain] -Is Patient Pain Free? Yes Musculoskeletal: No Tenderness to Palpation of Joints or Extremities Lymphatic: No Cervical, Supraclavicular, or Inguinal Adenopathy Neurological: Cranial nerves II-XII grossly intact, Neuro grossly intact Psych/Mental Status: Normal Affect, Appropriate Debridement Note Post-Debridement Measurements/Treatment WC - Nurse 2 - General Ulcer CM Notes Start: 01/14/20 09:33 Freq: Status: Active Protocol: Activity Type Activity Date Activity User E-Sign Co-Sign Detail Recorded Client Recorded Date Recorded By Document 01/14/20 10:13 MW [id number] 01/14/20 10:15 MW Document 01/21/20 09:59 MW [id number] 01/21/20 10:02 MW Document 01/28/20 10:04 MW [id number] 01/28/20 10:08 MW 01/14/20 0701/28/20 10:13 09:59 10:04 Wound Center Nurse 2 #12- R MEDIAL LE CLUSTER -Time 10:14 10:01 10:04 -Correct Patient Yes Yes Yes -Correct Side, Site, Position Yes Yes Yes -Correct Procedure Yes Yes Yes -Procedure Performed Yes No Yes -Type of Procedure Debridement Debridement -Clinical Debridement Subcutaneous Subcutaneous -Post Debridement Size (cm) - Length 0.9 5.4 -Post Debridement Size (cm) - Width 0.5 5.5 -Post Debridement Size (cm) - Depth 0.1 0.4 -Total Square Cm 0.45 29.70 -Wound/Ulcer Outcome Not Healed Not Healed Not Healed -Ulcer Cleansing Rinsed/ Rinsed/ Rinsed/ Irrigated with Irrigated with Irrigated with Saline Saline Saline -Foul Odor after Cleansing No No No -Bioengineered Tissue Yes Yes No -Type of bioengineered Tissue EPIFIX EPIFIX -Expiration Date 09/13/24 08/16/24 -Product Lot Number [id number] -Percent Used 100 100 -Saline Lot Number [id number] -Bleeding Controlled with Pressure Pressure Pressure -Offloading No No No -Treatment Response Procedure Procedure Procedure Tolerated Well Tolerated Well Tolerated Well Pain Scale: 0-10 Numeric Is Patient Pain Free? Yes Yes Yes Wound debrided: Right medial lower leg ulcer Type of Debridement: Excisional debridement Anesthesia Used: 5% Lidocaine Gel Depth: Down to and including healthy tissue, in the subcutaneous layer Percentage of wound debrided: 100 Instrument Used: 5mm curette Tissue Removed: Fibrin Severity: Limited To Skin Breakdown Amount of bleeding with debridement: Mild Bleeding Controlled with: Compression and gauze Assessment/Plan Active Problems (Last Updated 02/24/19 @ 11:37 by Ivory Smiley) Leg wound, right (Acute) Diabetic neuropathy associated with type 2 diabetes mellitus (Chronic) Edema of lower extremity (Chronic) Non-pressure chronic ulcer of other part of right lower leg with fat layer exposed (Acute) DVT of lower extremity, bilateral (Chronic) Assessment: Venous insufficiency with ulcers. Ulcer right calf nonhealing. History of MRSA. History of DVTs Plan: Continue washing left leg with antibacterial soap in the shower. Apply Aquacel extra to wound base cover with gauze and tape. Double layer Tubigrip and Andrzej wrap over top. Follow-up next Sunday
[2020-02-04 09:31] VITALS: BP 150/75; PULSE 64; RESP 16; TEMP 36.6; BMI 33.9
--- NOTE | 2020-02-04 11:22 | PN.PCM_ITS ---
(1) Leg wound, right Status: Acute Current Visit: Yes Qualifiers: Encounter type: subsequent encounter Qualified Code(s): S81.801D - Unspecified open wound, right lower leg, subsequent encounter Code(s): S81.801A - Unspecified open wound, right lower leg, initial encounter (2) Non-pressure chronic ulcer of other part of right lower leg with fat layer exposed Status: Acute Current Visit: Yes Code(s): L97.812 - Non-pressure chronic ulcer of other part of right lower leg with fat layer exposed (3) DVT of lower extremity, bilateral Status: Chronic Current Visit: Yes Code(s): I82.403 - Acute embolism and thrombosis of unspecified deep veins of lower extremity, bilateral (4) Diabetic neuropathy associated with type 2 diabetes mellitus Status: Chronic Current Visit: Yes Code(s): E11.40 - Type 2 diabetes mellitus with diabetic neuropathy, unspecified (5) Edema of lower extremity Status: Chronic Current Visit: Yes Code(s): R60.0 - Localized edema Type of Wound Date of Service: 02/04/20 Chief Complaint: Right lower medial vascular ulcer History of Wound: 79-year-old white male diabetic with history of DVTs driving home from [place] approximately 3 weeks ago developed an ulcer even though he is wearing his compression stockings on his right inner calf. Has been trying to use his own medications not working. Does have history of MRSA we will culture today and start him on new regimen of dressings Progress of Wound: We will held the epi-fix and went back to Aquacel extra to wound beds and increase the compression and this mades a difference. He was came back with 2 different staph 1 MRSA of the other epidermis. Ulcer is finally becoming smaller and less depth - Physical Exam Vital Signs Temp Pulse Resp BP 97.8 F 64 16 150/75 H 02/04/20 09:31 02/04/20 09:31 02/04/20 09:31 02/04/20 09:31 General: Oriented x3, Cooperative, Well developed HEENT: Atraumatic, PERRLA Oral: Moist Mucosa Neck: Supple, No JVD Lungs: Clear to auscultation, Normal air movement Cardiovascular: Regular rate, Regular Rhythm Abdomen: Bowel Sounds Present, Soft, Non Tender, No Hepato-splenomegaly Extremities: No clubbing, No edema Skin: Ulcer/ Wound - Right medial ankle ulcer Wound Measurements and Assessment WC - Nurse 1 - General Ulcer Measurement Start: 01/14/20 09:33 Freq: Status: Active Protocol: Activity Type Activity Date Activity User E-Sign Co-Sign Detail Recorded Client Recorded Date Recorded By Document 02/04/20 09:31 [facility] [id number] 02/04/20 09:38 [facility] 02/04/20 09:31 Wound Center Nurse 1 [Ulcer Assessment] #12- R MEDIAL LE CLUSTER -Combined with other wound No -Current Size (cm) - Length 5 -Current Size (cm) - Width 6.3 -Current Size (cm) - Depth 0.3 -Total Square Cm 31.5 -Photo Taken No -Epithelialization None Present -Tunneling No -Undermining/Tunneling No -Circular Undermining No -Exudate Amt Small -Exudate Type Serosanguineous -Wound Margin Distinct, Outline Attached -Granulation Amt Medium (34-66%) -Granulation Quality Red -Slough/Fibrin Yes -Necrosis Amt Medium (34-66%) -Necrotic Tissue Type Adherent Slough -Texture (Sharri-wound Skin Appearance) Assessed, Scarring -Moisture (Sharri-wound Skin Appearance Assessed,Dry/ ) Scaly -Color (Sharri-wound Skin Appearance) Assessed, Hemosiderin Staining -Temperature (Sharri-wound Skin No Abnormality Appearance) (Pt Warm) -Tenderness on Palpation (Sharri-wound No Skin Appearance) -Ulcer Cleansing Rinsed/ Irrigated with Saline -Foul Odor after Cleansing No -Anesthetic Used 5% Lidocaine Gel [Edema Assessment] -Lower Limb Edema Present Yes -Right Calf (cm) 41.7 -Right Ankle (cm) 26.4 WC - Nurse 2 - General Ulcer CM Notes Start: 01/14/20 09:33 Freq: Status: Active Protocol: Activity Type Activity Date Activity User E-Sign Co-Sign Detail Recorded Client Recorded Date Recorded By Document 02/04/20 09:52 PL [id number] 02/04/20 09:52 PL 02/04/20 09:52 Wound Center Nurse 2 [Procedure/Treatment] #12- R MEDIAL LE CLUSTER -Time 09:48 -Correct Patient Yes -Correct Side, Site, Position Yes -Correct Procedure Yes -Procedure Performed Yes -Type of Procedure Debridement -Clinical Debridement Subcutaneous -Post Debridement Size (cm) - Length 5 -Post Debridement Size (cm) - Width 5.2 -Post Debridement Size (cm) - Depth 0.2 -Total Square (cm) 26.0 -Wound/Ulcer Outcome Not Healed -Ulcer Cleansing Rinsed/ Irrigated with Saline -Foul Odor after Cleansing No -Bleeding Controlled with Pressure -Treatment Response Procedure Tolerated Well [See Physician Procedure note for Specifics] Pain Scale: 0-10 Numeric [Pain] -Is Patient Pain Free? Yes Musculoskeletal: No Tenderness to Palpation of Joints or Extremities Lymphatic: No Cervical, Supraclavicular, or Inguinal Adenopathy Neurological: Cranial nerves II-XII grossly intact, Neuro grossly intact Psych/Mental Status: Normal Affect, Appropriate Debridement Note Post-Debridement Measurements/Treatment WC - Nurse 2 - General Ulcer CM Notes Start: 01/14/20 09:33 Freq: Status: Active Protocol: Activity Type Activity Date Activity User E-Sign Co-Sign Detail Recorded Client Recorded Date Recorded By Document 01/14/20 10:13 MW [id number] 01/14/20 10:15 MW Document 01/21/20 09:59 MW [id number] 01/21/20 10:02 MW Document 01/28/20 10:04 MW [id number] 01/28/20 10:08 MW Document 02/04/20 09:52 PL [id number] 02/04/20 09:52 PL 01/14/20 01/21/20 01/28/20 10:13 09:59 10:04 Wound Center Nurse 2 #12- R MEDIAL LE CLUSTER -Time 10:14 10:01 10:04 -Correct Patient Yes Yes Yes -Correct Side, Site, Position Yes Yes Yes -Correct Procedure Yes Yes Yes -Procedure Performed Yes No Yes -Type of Procedure Debridement Debridement -Clinical Debridement Subcutaneous Subcutaneous -Post Debridement Size (cm) - Length 0.9 5.4 -Post Debridement Size (cm) - Width 0.5 5.5 -Post Debridement Size (cm) - Depth 0.1 0.4 -Total Square (cm) 0.45 29.70 -Wound/Ulcer Outcome Not Healed Not Healed Not Healed -Ulcer Cleansing Rinsed/ Rinsed/ Rinsed/ Irrigated with Irrigated with Irrigated with Saline Saline Saline -Foul Odor after Cleansing No No No -Bioengineered Tissue Yes Yes No -Type of bioengineered Tissue EPIFIX EPIFIX -Expiration Date 09/13/24 08/16/24 -Product Lot Number [id number] -Percent Used 100 100 -Saline Lot Number [id number] -Bleeding Controlled with Pressure Pressure Pressure -Offloading No No No -Treatment Response Procedure Procedure Procedure Tolerated Well Tolerated Well Tolerated Well Pain Scale: 0-10 Numeric Is Patient Pain Free? Yes Yes Yes 02/04/20 09:52 Wound Center Nurse 2 #12- R MEDIAL LE CLUSTER -Time 09:48 -Correct Patient Yes -Correct Side, Site, Position Yes -Correct Procedure Yes -Procedure Performed Yes -Type of Procedure Debridement -Clinical Debridement Subcutaneous -Post Debridement Size (cm) - Length 5 -Post Debridement Size (cm) - Width 5.2 -Post Debridement Size (cm) - Depth 0.2 -Total Square (cm) 26.0 -Wound/Ulcer Outcome Not Healed -Ulcer Cleansing Rinsed/ Irrigated with Saline -Foul Odor after Cleansing No -Bioengineered Tissue -Type of bioengineered Tissue -Expiration Date -Product Lot Number -Percent Used -Saline Lot Number -Bleeding Controlled with Pressure -Offloading -Treatment Response Procedure Tolerated Well Pain Scale: 0-10 Numeric Is Patient Pain Free? Yes Wound debrided: Medial ankle ulcer Type of Debridement: Excisional debridement Anesthesia Used: 5% Lidocaine Gel Depth: Down to and including healthy tissue, in the subcutaneous layer Percentage of wound debrided: 100 Instrument Used: 5mm curette Tissue Removed: Fibrin Severity: Limited To Skin Breakdown Amount of bleeding with debridement: Mild Bleeding Controlled with: Compression and gauze Patient tolerated procedure well Assessment/Plan Active Problems (Last Updated 02/24/19 @ 11:37 by Ivory Smiley) Leg wound, right (Acute) Diabetic neuropathy associated with type 2 diabetes mellitus (Chronic) Edema of lower extremity (Chronic) Non-pressure chronic ulcer of other part of right lower leg with fat layer exposed (Acute) DVT of lower extremity, bilateral (Chronic) Assessment: Venous insufficiency with ulcers. Ulcer right calf nonhealing. History of MRSA. History of DVTs Plan: Continue washing left leg with antibacterial soap in the shower. Apply Aquacel extra to wound base cover with gauze and tape. 10 you compression stocking. Follow-up next Sunday
[2020-02-11 09:29] VITALS: BP 154/61; PULSE 71; RESP 18; TEMP 36.6; BMI 33.9
--- NOTE | 2020-02-11 10:27 | PCM.WC.PN ---
(1) Leg wound, right Status: Acute Current Visit: Yes Qualifiers: Encounter type: subsequent encounter Qualified Code(s): S81.801D - Unspecified open wound, right lower leg, subsequent encounter Code(s): S81.801A - Unspecified open wound, right lower leg, initial encounter (2) Non-pressure chronic ulcer of other part of right lower leg with fat layer exposed Status: Acute Current Visit: Yes Code(s): L97.812 - Non-pressure chronic ulcer of other part of right lower leg with fat layer exposed (3) DVT of lower extremity, bilateral Status: Chronic Current Visit: Yes Code(s): I82.403 - Acute embolism and thrombosis of unspecified deep veins of lower extremity, bilateral (4) Diabetic neuropathy associated with type 2 diabetes mellitus Status: Chronic Current Visit: Yes Code(s): E11.40 - Type 2 diabetes mellitus with diabetic neuropathy, unspecified (5) Edema of lower extremity Status: Chronic Current Visit: Yes Code(s): R60.0 - Localized edema Type of Wound Date of Service: 02/11/20 Chief Complaint: Right lower medial vascular ulcer History of Wound: 79-year-old white male diabetic with history of DVTs driving home from [place] approximately 3 weeks ago developed an ulcer even though he is wearing his compression stockings on his right inner calf. Has been trying to use his own medications not working. Does have history of MRSA we will culture today and start him on new regimen of dressings Progress of Wound: We will held the epi-fix and went back to Aquacel extra to wound beds and increase the compression and this mades a difference. He was came back with 2 different staph 1 MRSA of the other epidermis. Restarting the epi-fix that we had on hold. Fix #5 applied ulcers are much smaller. Compression is very good - Physical Exam Vital Signs Temp Pulse Resp BP 97.9 F 71 18 154/61 H 02/11/20 09:29 02/11/20 09:29 02/11/20 09:02/11/20 09:29 General: Oriented x3, Cooperative, Well developed HEENT: Atraumatic, PERRLA Oral: Moist Mucosa Neck: Supple, No JVD Lungs: Clear to auscultation, Normal air movement Cardiovascular: Regular rate, Regular Rhythm Abdomen: Bowel Sounds Present, Soft, Non Tender, No Hepato-splenomegaly Extremities: No clubbing, No edema Skin: Ulcer/ Wound - Peripheral vascular disease with ulceration from chronic DVTs in the legs Wound Measurements and Assessment WC - Nurse 1 - General Ulcer Measurement Start: 01/14/20 09:33 Freq: Status: Active Protocol: Activity Type Activity Date Activity User E-Sign Co-Sign Detail Recorded Client Recorded Date Recorded By Document 02/11/20 09:29 BM [id number] 02/11/20 09:38 BMF 02/11/20 09:29 Wound Center Nurse 1 [Ulcer Assessment] #12- R MEDIAL LE CLUSTER -Combined with other wound No -Current Size (cm) - Length 5.2 -Current Size (cm) - Width 4.3 -Current Size (cm) - Depth 0.3 -Total Square Cm 22.36 -Photo Taken No -Epithelialization None Present -Tunneling No -Undermining/Tunneling No -Circular Undermining No -Exudate Amt Medium -Exudate Type Serosanguineous -Wound Margin Distinct, Outline Attached -Granulation Amt Medium (34-66%) -Granulation Quality Red -Slough/Fibrin Yes -Necrosis Amt Small (1-33%) -Necrotic Tissue Type Adherent Slough -Texture (Sharri-wound Skin Appearance) Assessed, Scarring -Moisture (Sharri-wound Skin Appearance Assessed,Dry/ ) Scaly -Color (Sharri-wound Skin Appearance) Assessed, Erythema, Hemosiderin Staining -Temperature (Sharri-wound Skin No Abnormality Appearance) (Pt Warm) -Tenderness on Palpation (Sharri-wound No Skin Appearance) -Ulcer Cleansing SOAPY WATER -Foul Odor after Cleansing No -Anesthetic Used 4% Lidocaine Solution [Edema Assessment] -Lower Limb Edema Present Yes -Right Calf (cm) 42 -Right Ankle (cm) 26.4 WC - Nurse 2 - General Ulcer CM Notes Start: 01/14/20 09:33 Freq: Status: Active Protocol: Activity Type Activity Date Activity User E-Sign Co-Sign Detail Recorded Client Recorded Date Recorded By Document 02/11/20 09:47 MW [id number] 02/11/20 09:58 MW 02/11/20 09:47 Wound Center Nurse 2 [Procedure/Treatment] #12- R MEDIAL LE CLUSTER -Time 09:49 -Correct Patient Yes -Correct Side, Site, Position Yes -Correct Procedure Yes -Procedure Performed Yes -Type of Procedure Debridement -Clinical Debridement Subcutaneous -Post Debridement Size (cm) - Length 5.4 -Post Debridement Size (cm) - Width 3.7 -Post Debridement Size (cm) - Depth 0.2 -Total Square (cm) 19.98 -Wound/Ulcer Outcome Not Healed -Ulcer Cleansing Rinsed/ Irrigated with Saline -Foul Odor after Cleansing No -Bioengineered Tissue Yes -Type of bioengineered Tissue EPIFIX -Expiration Date 09/13/24 -Product Lot Number [id number] -Percent Used 100 -Saline Lot Number [id number] -Bleeding Controlled with Pressure -Offloading No -Treatment Response Procedure Tolerated Well [See Physician Procedure note for Specifics] Pain Scale: 0-10 Numeric [Pain] -Is Patient Pain Free? Yes Musculoskeletal: No Tenderness to Palpation of Joints or Extremities Lymphatic: No Cervical, Supraclavicular, or Inguinal Adenopathy Neurological: Cranial nerves II-XII grossly intact, Neuro grossly intact Psych/Mental Status: Normal Affect, Appropriate Debridement Note Post-Debridement Measurements/Treatment WC - Nurse 2 - General Ulcer CM Notes Start: 01/14/20 09:33 Freq: Status: Active Protocol: Activity Type Activity Date Activity User E-Sign Co-Sign Detail Recorded Client Recorded Date Recorded By Document 01/14/20 10:13 MW [id number] 01/14/20 10:15 MW Document 01/21/20 09:59 MW [id number] 01/21/20 10:02 MW Document 01/28/20 10:04 MW [id number] 01/28/20 10:08 MW Document 02/04/20 09:52 PL [id number] 02/04/20 09:52 PL Document 02/11/20 09:47 MW [id number] 02/11/20 09:58 MW 01/14/20 01/21/20 01/28/20 10:13 09:59 10:04 Wound Center Nurse 2 #12- R MEDIAL LE CLUSTER -Time 10:14 10:01 10:04 -Correct Patient Yes Yes Yes -Correct Side, Site, Position Yes Yes Yes -Correct Procedure Yes Yes Yes -Procedure Performed Yes No Yes -Type of Procedure Debridement Debridement -Clinical Debridement Subcutaneous Subcutaneous -Post Debridement Size (cm) - Length 0.9 5.4 -Post Debridement Size (cm) - Width 0.5 5.5 -Post Debridement Size (cm) - Depth 0.1 0.4 -Total Square (cm) 0.45 29.70 -Wound/Ulcer Outcome Not Healed Not Healed Not Healed -Ulcer Cleansing Rinsed/ Rinsed/ Rinsed/ Irrigated with Irrigated with Irrigated with Saline Saline Saline -Foul Odor after Cleansing No No No -Bioengineered Tissue Yes Yes No -Type of bioengineered Tissue EPIFIX EPIFIX -Expiration Date 09/13/24 08/16/24 -Product Lot Number [id number] -Percent Used 100 100 -Saline Lot Number [id number] -Bleeding Controlled with Pressure Pressure Pressure -Offloading No No No -Treatment Response Procedure Procedure Procedure Tolerated Well Tolerated Well Tolerated Well Pain Scale: 0-10 Numeric Is Patient Pain Free? Yes Yes Yes 02/04/20 02/11/20 09:52 09:47 Wound Center Nurse 2 #12- R [facility] CLUSTER -Time 09:48 09:49 -Correct Patient Yes Yes -Correct Side, Site, Position Yes Yes -Correct Procedure Yes Yes -Procedure Performed Yes Yes -Type of Procedure Debridement Debridement -Clinical Debridement Subcutaneous Subcutaneous -Post Debridement Size (cm) - Length 5 5.4 -Post Debridement Size (cm) - Width 5.2 3.7 -Post Debridement Size (cm) - Depth 0.2 0.2 -Total Square (cm) 26.0 19.98 -Wound/Ulcer Outcome Not Healed Not Healed -Ulcer Cleansing Rinsed/ Rinsed/ Irrigated with Irrigated with Saline Saline -Foul Odor after Cleansing No No -Bioengineered Tissue Yes -Type of bioengineered Tissue EPIFIX -Expiration Date 09/13/24 -Product Lot Number [id number] -Percent Used 100 -Saline Lot Number [id number] -Bleeding Controlled with Pressure Pressure -Offloading No -Treatment Response Procedure Procedure Tolerated Well Tolerated Well Pain Scale: 0-10 Numeric Is Patient Pain Free? Yes Yes Wound debrided: Right lower inner ulcer near ankle Type of Debridement: Excisional debridement Anesthesia Used: 5% Lidocaine Gel Depth: Down to and including healthy tissue Percentage of wound debrided: 100 Instrument Used: 3mm curette Tissue Removed: Devitalized tissue and fibrin Severity: Limited To Skin Breakdown Amount of bleeding with debridement: Mild Bleeding Controlled with: Compression and gauze Assessment/Plan Active Problems (Last Updated 02/24/19 @ 11:37 by Ivory Smiley) Leg wound, right (Acute) Diabetic neuropathy associated with type 2 diabetes mellitus (Chronic) Edema of lower extremity (Chronic) Non-pressure chronic ulcer of other part of right lower leg with fat layer exposed (Acute) DVT of lower extremity, bilateral (Chronic) Assessment: Venous insufficiency with ulcers. Ulcer right calf nonhealing. History of MRSA resolved. History of DVTs Plan: Be fix #5 applied leave dressing alone. Continue compression on legs. Follow-up in 1 week
== END 2020-02-13 23:59 ==
LOC: WC 09:30
PROVIDERS: PCP Family Medicine; Referring Provider Nurse Practitioner; Visit Provider Nurse Practitioner
DX: L97.812 Non-pressure chronic ulcer of other part of right lower leg with fat layer exposed (principal); I82.403 Acute embolism and thrombosis of unspecified deep veins of lower extremity, bilateral; E11.40 Type 2 diabetes mellitus with diabetic neuropathy, unspecified; R60.0 Localized edema; Z86.14 Personal history of Methicillin resistant Staphylococcus aureus infection; Z86.718 Personal history of other venous thrombosis and embolism; I87.2 Venous insufficiency (chronic) (peripheral)
CPT/HCPCS: 11042; 11045; 15271; Q4186

== ENCOUNTER 2020-02-18 07:58 | Outpatient (RCR) | payer MEDICARE, OTHER, SELFPAY ==
[2020-02-14 00:32] VITALS: BP 154/61; PULSE 71; RESP 18; TEMP 36.6
[2020-02-18 09:46] VITALS: BP 131/61; PULSE 67; RESP 20; TEMP 36.3; BMI 33.9
--- NOTE | 2020-02-18 10:02 | PCM.WC.PN ---
(1) Peripheral vascular disease of lower extremity with ulceration Status: Acute Current Visit: Yes Code(s): I73.9 - Peripheral vascular disease, unspecified; L97.909 - Non-pressure chronic ulcer of unspecified part of unspecified lower leg with unspecified severity (2) DVT of lower extremity, bilateral Status: Chronic Current Visit: Yes Code(s): I82.403 - Acute embolism and thrombosis of unspecified deep veins of lower extremity, bilateral (3) Diabetic neuropathy associated with type 2 diabetes mellitus Status: Chronic Current Visit: Yes Code(s): E11.40 - Type 2 diabetes mellitus with diabetic neuropathy, unspecified (4) Edema of lower extremity Status: Chronic Current Visit: Yes Code(s): R60.0 - Localized edema Type of Wound Date of Service: 02/18/20 Chief Complaint: Right lower medial vascular ulcer History of Wound: 79-year-old white male diabetic with history of DVTs driving home from [place] approximately 3 weeks ago developed an ulcer even though he is wearing his compression stockings on his right inner calf. Has been trying to use his own medications not working. Does have history of MRSA we will culture today and start him on new regimen of dressings Progress of Wound: Today the wound is healed patient will be discharged from the wound center after 5 epi fix - Physical Exam Vital Signs Temp Pulse Resp BP 97.3 F L 67 20 H 131/61 H 02/18/20 09:46 02/18/20 09:46 02/18/20 09:46 02/18/20 09:46 General: Oriented x3, Cooperative, Well developed HEENT: Atraumatic, PERRLA Oral: Moist Mucosa Neck: Supple, No JVD Lungs: Clear to auscultation, Normal air movement Cardiovascular: Regular rate, Regular Rhythm Abdomen: Bowel Sounds Present, Soft, Non Tender, No Hepato-splenomegaly Extremities: No clubbing, No edema Skin: Ulcer/ Wound - Right medial ankle peripheral venous ulcer Wound Measurements and Assessment WC - Nurse 1 - General Ulcer Measurement Start: 02/18/20 09:46 Freq: Status: Active Protocol: Activity Type Activity Date Activity User E-Sign Co-Sign Detail Recorded Client Recorded Date Recorded By Document 02/18/20 09:46 RB [id number] 02/18/20 09:49 RB 02/18/20 09:46 Wound Center Nurse 1 [Ulcer Assessment] #12- R MEDIAL LE CLUSTER -Combined with other wound No -Current Size (cm) - Length 7 -Current Size (cm) - Width 5 -Current Size (cm) - Depth 0.1 -Total Square Cm 35 -Photo Taken Yes -Tunneling No -Undermining/Tunneling No -Circular Undermining No -Exudate Amt Medium -Exudate Type Serosanguineous -Wound Margin Flat & Intact -Granulation Amt Large (67-100%) -Granulation Quality Red -Slough/Fibrin Yes -Necrosis Amt Small (1-33%) -Necrotic Tissue Type Adherent Slough -Structure Exposed N/A -Texture (Sharri-wound Skin Appearance) Excoriation -Moisture (Sharri-wound Skin Appearance Assessed ) -Color (Sharri-wound Skin Appearance) Assessed -Temperature (Sharri-wound Skin No Abnormality Appearance) (Pt Warm) -Tenderness on Palpation (Sharri-wound No Skin Appearance) -Ulcer Cleansing Wound Cleanser -Foul Odor after Cleansing No -Anesthetic Used 4% Lidocaine Solution [Edema Assessment] -Lower Limb Edema Present Yes -Right Calf (cm) 41 -Right Ankle (cm) 25.8 WC - Nurse 2 - General Ulcer CM Notes Start: 02/18/20 09:46 Freq: Status: Active Protocol: Activity Type Activity Date Activity User E-Sign Co-Sign Detail Recorded Client Recorded Date Recorded By Document 02/18/20 09:56 MW [id number] 02/18/20 09:58 MW 02/18/20 09:56 Wound Center Nurse 2 [Procedure/Treatment] #12- R MEDIAL LE CLUSTER -Time 09:57 -Correct Patient Yes -Correct Side, Site, Position Yes -Correct Procedure Yes -Procedure Performed No -Post Debridement Size (cm) - Length 0 -Post Debridement Size (cm) - Width 0 -Post Debridement Size (cm) - Depth 0 -Total Square (cm) 0 -Wound/Ulcer Outcome Healed- Epithelialized [See Physician Procedure note for Specifics] Pain Scale: 0-10 Numeric [Pain] -Is Patient Pain Free? Yes Musculoskeletal: No Tenderness to Palpation of Joints or Extremities Lymphatic: No Cervical, Supraclavicular, or Inguinal Adenopathy Neurological: Cranial nerves II-XII grossly intact, Neuro grossly intact Psych/Mental Status: Normal Affect, Appropriate Debridement Note Post-Debridement Measurements/Treatment WC - Nurse 2 - General Ulcer CM Notes Start: 02/18/20 09:46 Freq: Status: Active Protocol: Activity Type Activity Date Activity User E-Sign Co-Sign Detail Recorded Client Recorded Date Recorded By Document 02/18/20 09:56 MW [id number] 02/18/20 09:58 MW 02/18/20 09:56 Wound Center Nurse 2 #12- R MEDIAL AMINAH CLUSTER -Time 09:57 -Correct Patient Yes -Correct Side, Site, Position Yes -Correct Procedure Yes -Procedure Performed No -Post Debridement Size (cm) - Length 0 -Post Debridement Size (cm) - Width 0 -Post Debridement Size (cm) - Depth 0 -Total Square (cm) 0 -Wound/Ulcer Outcome Healed- Epithelialized Pain Scale: 0-10 Numeric Is Patient Pain Free? Yes No debridement was completed today Assessment/Plan Active Problems (Last Updated 02/24/19 @ 11:37 by Ivory Smiley) Diabetic neuropathy associated with type 2 diabetes mellitus (Chronic) Edema of lower extremity (Chronic) DVT of lower extremity, bilateral (Chronic) Peripheral vascular disease of lower extremity with ulceration (Acute) Assessment: Venous insufficiency with ulcers ulcers resolved. Ulcer right calf nonhealing ulcer resolved. History of DVTs Plan: Discharge from the wound center continue wearing compression has an appointment with his vascular surgeon next week Sunday
== END 2020-02-19 10:17 | disposition home or self-care (01) ==
LOC: WC 07:58
PROVIDERS: PCP Family Medicine; Referring Provider Nurse Practitioner; Visit Provider Nurse Practitioner
DX: L97.909 Non-pressure chronic ulcer of unspecified part of unspecified lower leg with unspecified severity (principal); I73.9 Peripheral vascular disease, unspecified; E11.40 Type 2 diabetes mellitus with diabetic neuropathy, unspecified; R60.0 Localized edema; Z86.14 Personal history of Methicillin resistant Staphylococcus aureus infection; Z86.718 Personal history of other venous thrombosis and embolism; I87.2 Venous insufficiency (chronic) (peripheral)
CPT/HCPCS: 99213; G0463

== ENCOUNTER 2022-01-04 09:45 | Outpatient (RCR) | payer MEDICARE, OTHER, SELFPAY ==
[2021-12-28 09:42] VITALS: BP 131/72; PULSE 68; TEMP 35.9; BMI 35.1
--- NOTE | 2021-12-28 12:15 | PN.PCM_ITS ---
History of Present Illness Date of Service: 12/28/21 Chief Complaint: Right lower medial vascular ulcer History of Wound: This is a 81-year-old white male that tripped on his deck at home and skinned his right poole about 3 weeks ago. He was seen by his family doctor, and she has been using a medicated Band-Aid. Healing well patient shows no sign of infection very superficial. Patient has been wearing his compression stockings. He is here for follow-up because it still not healed. Progress of Wound: Today the wound is superficial small you can tell he is developing new cells in the base of the wound. We will try using Xeroform instead on the wound he wayne uld heal within 1 to 2 weeks. Subjective Subjective Patient is very happy with the ideas and will follow directions well continue wearing his compression stockings Objective Data Objective Data All reviewed Vital Signs: Vital Signs Temp Pulse BP 96.7 F L 68 131/72 H 12/28/21 09:42 12/28/21 09:42 12/28/21 09:42 Weight: 252 lb Body Mass Index (BMI) 35.1 Physical Exam Const oriented x3 General Appearance: cooperative Exam Limitations: no limitations Resp normal respiratory effort Effort and Inspection: able to speak in complete sentences Auscultation: clear to auscultation bilaterally Cardio regular rate and regular rhythm Palpation: normal PMI Rate: regular rate Rhythm: regular rhythm GI Auscultation: normoactive bowel sounds Palpation: soft and no hepatosplenomegaly Extremity normal to inspection General Extremity: normal exam except as noted Skin no rashes or lesions noted Neuro oriented x3 Psych Appearance: grossly normal Speech: normal speech Thought Content: normal thought content Judgement: judgement good Debridement Note Debridement Note Wound debrided: Right poole traumatic shearing Laterality: Right Type of Debridement: Excisional debridement Anesthesia Used: 5% Lidocaine Gel Depth: Down to and including healthy tissue Percentage of wound debrided: 100 Instrument Used: 7mm curette Tissue Removed: Fibrin Severity: Limited To Skin Breakdown Amount of bleeding with debridement: Mild Bleeding Controlled with: Compression and gauze Patient tolerated procedure: Patient tolerated procedure well Post-Debridement Measurements and Additional Note: Post-Debridement Measurements/Treatment MAYLIN - Nurse 1 - General Ulcer Assessment Start: 12/28/21 09:41 Freq: Status: Active Protocol: MICHAEL Activity Type Activity Date Activity User E-sign Co-sign Detail Recorded Client Recorded Date Recorded By Document 12/28/21 09:42 ROBERTA [id number] 12/28/21 09:59 ROBERTA 12/28/21 09:42 WC - Today's Visit Information Type of service Initial Visit Arrival Mode Ambulatory Patient Identification Verified (Name & Yes ) Height and Weight Height 5 ft 11 in Weight 252 lb Weight in Pounds 252.0 lbs Body Mass Index (BMI) 35.1 BMI Classification Obese BSA - Radha 2.33 Vital Signs Temperature (97.8 F-99.1 F) 96.7 F L Temperature Source Temporal Pulse Rate (60-100) 68 Pulse Location Monitor Blood Pressure (90/60-120/80) 131/72 H Blood Pressure Mean (mm Hg) 91 Source Monitor Position Sitting Blood Pressure Location Left Arm History Since Last Visit- (Skip if this is Patient's initial visit) Have you changed medications since your No last visit? Any new allergies or adverse reactions No Had a fall/change in ADL's that may No increase risk of falls Signs or symptoms of abuse and/or No neglect since last visit Have you been in the hospital since your No last visit? Has dressing in place as prescribed Yes Has compression in place as prescribed Yes Has offloadiing in place as prescribed N/A Experienced any changes in pain level or No management Left Footwear Regular Shoe Right Footwear Regular Shoe Pain Scale: 0-10 Numeric Is Patient Pain Free? Yes - Nurse 1 - General Ulcer Measurement Start: 12/28/21 09:41 Freq: Status: Active Protocol: Activity Type Activity Date Activity User E-sign Co-sign Detail Recorded Client Recorded Date Recorded By Document 12/28/21 09:42 ROBERTA [id number] 12/28/21 09:59 ROBERTA 12/28/21 09:42 Wound Center Nurse 1 #13 Right Poole -Current Size (cm) - Length 1.5 -Current Size (cm) - Width 1 -Current Size (cm) - Depth 0.1 -Total Square Cm 1.5 -Exudate Amt Small -Exudate Type Serosanguineous -Wound Margin Distinct, Outline Attached -Granulation Amt Medium (34-66%) -Granulation Quality Red -Necrosis Amt None Present (0 %) -Texture (Sharri-wound Skin Appearance) Assessed, Scarring -Moisture (Sharri-wound Skin Appearance) No Abnormality, Assessed -Color (Sharri-wound Skin Appearance) Assessed, Hemosiderin Staining -Temperature (Sharri-wound Skin No Abnormality Appearance) (Pt Warm) -Tenderness on Palpation (Sharri-wound No Skin Appearance) -Ulcer Cleansing Rinsed/ Irrigated with Saline -Foul Odor after Cleansing No -Anesthetic Used 4% Lidocaine Solution Right Calf (cm) 43.5 Right Ankle (cm) 26.1 WC - Nurse 2 - General Ulcer CM Notes Start: 12/28/21 09:41 Freq: Status: Active Protocol: Activity Type Activity Date Activity User E-sign Co-sign Detail Recorded Client Recorded Date Recorded By Document 12/28/21 10:17 MW [id number] 12/28/21 10:19 MW 12/28/21 10:17 Wound Center Nurse 2 #13 Right Poole -Time 10:19 -Correct Patient Yes -Correct Side, Site, Position Yes -Correct Procedure Yes -Procedure Performed Yes -Type of Procedure Debridement -Clinical Debridement Subcutaneous -Tissue Removed Subcutaneous -Post Debridement (cm) - Length 2.0 -Post Debridement (cm) - Width 1.0 -Post Debridement (cm) - Depth 0.1 -Total Square (Post) (cm) 2.00 -Area of Debridement (cm) - Length 2.0 -Area of Debridement (cm) - Width 1.0 -Total Square (Area) (cm) 2.00 -Tunneling No -Undermining/Tunneling No -Circular Undermining No -Wound/Ulcer Outcome Not Healed -Ulcer Cleansing Rinsed/ Irrigated with Saline -Foul Odor after Cleansing No -Bioengineered Tissue No -Bleeding Controlled with Pressure -Treatment Response Procedure Tolerated Well -Offloading No -Debridement - Subq, 1st 20sq cm Yes Pain Scale: 0-10 Numeric Is Patient Pain Free? Yes WC - Nurse 3 - General Ulcer D/C NN Start: 12/28/21 09:41 Freq: Status: Active Protocol: Activity Type Activity Date Activity User E-sign Co-sign Detail Recorded Client Recorded Date Recorded By Document 12/28/21 10:31 ML [id number] 12/28/21 10:31 ML 12/28/21 10:31 Wound Care Nurse 3 #13 Right Poole -Ulcer Cleansing Rinsed/ Irrigated with Saline -Other Dressing xeroform -Primary Dressing Covered/Secured with Dry Gauze & Roll Gauze, Secured with Tape Pain Scale: 0-10 Numeric Is Patient Pain Free? Yes WC - Visit Discharge Discharge Condition Stable Ambulatory Status Ambulatory Medication Reconcilliation completed & No provided to patient/care provider Clinical Summary of Care Provided Yes Assessment/Plan Assessment/Plan (1) Type 2 diabetes mellitus: CODE(S): E11.9 - Type 2 diabetes mellitus without complications QUALIFIERS: Diabetes mellitus intermediate frame tender insulin use: without intermediate use (2) Ulcer of right lower extremity with fat layer exposed: CODE(S): L97.912 - Non-pressure chronic ulcer of unspecified part of right lower leg with fat layer exposed PLAN: Wash right lower leg with antibacterial soap apply Xeroform dressing to the wound area cover with gauze and Nnamdi or tape follow-up in 1 week
[2022-01-04 09:49] VITALS: BP 136/65; PULSE 72; RESP 18; TEMP 36.2; BMI 35.1
--- NOTE | 2022-01-04 10:17 | PCM.WC.PN ---
History of Present Illness Date of Service: 01/04/22 Chief Complaint: Right lower medial vascular ulcer History of Wound: This is a 81-year-old white male that tripped on his deck at home and skinned his right poole about 3 weeks ago. He was seen by his family doctor, and she has been using a medicated Band-Aid. Healing well patient shows no sign of infection very superficial. Patient has been wearing his compression stockings. He is here for follow-up because it still not healed. Progress of Wound: Today the right poole is healed patient will be discharged from the wound center Subjective Subjective Patient was using next care bandages that are waterproof and he felt that worked the best. Not sure why he came here when he was healing it on his own but he did and we finished it with the Xeroform that tolerated well Objective Data Objective Data Wound is healed no sign of any openings. Patient be discharged from the wound center Vital Signs: Vital Signs Temp Pulse Resp BP 97.1 F L 72 18 136/65 H 01/04/22 09:49 01/04/22 09:49 01/04/22 09:49 01/04/22 09:49 Oxygen Delivery Method Room Air Weight: 252 lb Body Mass Index (BMI) 35.1 Physical Exam Const oriented x3 General Appearance: cooperative Exam Limitations: no limitations Resp normal respiratory effort Effort and Inspection: able to speak in complete sentences Auscultation: clear to auscultation bilaterally Cardio regular rate and regular rhythm Palpation: normal PMI Rate: regular rate Rhythm: regular rhythm GI Auscultation: normoactive bowel sounds Palpation: soft and no hepatosplenomegaly Extremity normal to inspection General Extremity: normal exam except as noted Skin no rashes or lesions noted Neuro oriented x3 Psych Appearance: grossly normal Speech: normal speech Thought Content: normal thought content Judgement: judgement good Debridement Note Debridement Note No debridement was completed: No debridement was completed today Post-Debridement Measurements and Additional Note: Post-Debridement Measurements/Treatment WC - Nurse 1 - General Ulcer Assessment Start: 12/28/21 09:41 Freq: Status: Active Protocol: MICHAEL Activity Type Activity Date Activity User E-sign Co-sign Detail Recorded Client Recorded Date Recorded By Document 12/28/21 09:42 KR [id number] 12/28/21 09:59 KR Document 01/04/22 09:49 [facility] [id number] 01/04/22 09:58 [facility] 12/28/21 01/04/22 09:42 09:49 - Today's Visit Information Type of service Initial Visit 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 ) Arrival Mode Ambulatory Ambulatory Transfer Assistance None Patient Identification Verified (Name & Yes Yes ) Height and Weight Height 5 ft 11 in Weight 252 lb Weight in Pounds 252.0 lbs Body Mass Index (BMI) 35.1 35.1 BMI Classification Obese Obese BSA - Radha 2.33 Vital Signs Temperature (97.8 F-99.1 F) 96.7 F L 97.1 F L Temperature Source Temporal Temporal Pulse Rate (60-100) 68 72 Pulse Location Monitor Monitor Respiratory Rate (12-18) 18 Respiratory rate source Observation Oxygen Delivery Method Room Air Blood Pressure (90/60-120/80) 131/72 H 136/65 H Blood Pressure Mean (mm Hg) 91 88 Source Monitor Monitor Position Sitting Sitting Blood Pressure Location Left Arm Left Arm History Since Last Visit- (Skip if this is Patient's initial visit) Have you changed medications since your No No last visit? Any new allergies or adverse reactions No No Had a fall/change in ADL's that may No No increase risk of falls Signs or symptoms of abuse and/or No No neglect since last visit Have you been in the hospital since your No No last visit? Has dressing in place as prescribed Yes Yes Has compression in place as prescribed Yes Yes Has offloadiing in place as prescribed N/A N/A Experienced any changes in pain level or No No management Left Footwear Regular Shoe Diabetic Shoe Right Footwear Regular Shoe Diabetic Shoe Pain Scale: 0-10 Numeric Is Patient Pain Free? Yes Yes - Nurse 1 - General Ulcer Measurement Start: 12/28/21 09:41 Freq: Status: Active Protocol: Activity Type Activity Date Activity User E-sign Co-sign Detail Recorded Client Recorded Date Recorded By Document 12/28/21 09:42 KR [id number] 12/28/21 09:59 KR Document 01/04/22 09:49 [facility] [id number] 01/04/22 09:58 [facility] 12/28/21 01/04/22 09:42 09:49 Wound Center Nurse 1 #13 Right Poole -Combined with other wound No -Current Size (cm) - Length 1.5 0.1 -Current Size (cm) - Width 1 0.1 -Current Size (cm) - Depth 0.1 0.1 -Total Square Cm 1.5 0.01 -Date of Last Picture (Recall this 01/04/22 field) -Photo Taken Yes -Epithelialization Large 67-100% -Exudate Amt Small -Exudate Type Serosanguineous -Wound Margin Distinct, Outline Attached -Granulation Amt Medium (34-66%) -Granulation Quality Red -Necrosis Amt None Present (0 %) -Texture (Sharri-wound Skin Appearance) Assessed, Assessed, Scarring Scarring -Moisture (Sharri-wound Skin Appearance) No Abnormality, Assessed Assessed -Color (Sharri-wound Skin Appearance) Assessed, Assessed Hemosiderin Staining -Temperature (Sharri-wound Skin No Abnormality No Abnormality Appearance) (Pt Warm) (Pt Warm) -Tenderness on Palpation (Sharri-wound No No Skin Appearance) -Ulcer Cleansing Rinsed/ Rinsed/ Irrigated with Irrigated with Saline Saline -Foul Odor after Cleansing No No -Anesthetic Used 4% Lidocaine Solution Right Calf (cm) 43.5 Right Ankle (cm) 26.1 WC - Nurse 2 - General Ulcer CM Notes Start: 12/28/21 09:41 Freq: Status: Active Protocol: Activity Type Activity Date Activity User E-sign Co-sign Detail Recorded Client Recorded Date Recorded By Document 12/28/21 10:17 MW [id number] 12/28/21 10:19 MW Document 01/04/22 10:05 MW [id number] 01/04/22 10:05 MW 12/28/21 01/04/22 10:17 10:05 Wound Center Nurse 2 #13 Right Poole -Time 10:19 10:05 -Correct Patient Yes Yes -Correct Side, Site, Position Yes Yes -Correct Procedure Yes Yes -Procedure Performed Yes No -Type of Procedure Debridement -Clinical Debridement Subcutaneous -Tissue Removed Subcutaneous -Post Debridement (cm) - Length 2.0 0 -Post Debridement (cm) - Width 1.0 0 -Post Debridement (cm) - Depth 0.1 0 -Total Square (Post) (cm) 2.00 0 -Area of Debridement (cm) - Length 2.0 -Area of Debridement (cm) - Width 1.0 -Total Square (Area) (cm) 2.00 -Tunneling No -Undermining/Tunneling No -Circular Undermining No -Wound/Ulcer Outcome Not Healed Healed- Epithelialized -Ulcer Cleansing Rinsed/ Irrigated with Saline -Foul Odor after Cleansing No -Bioengineered Tissue No -Bleeding Controlled with Pressure -Treatment Response Procedure Tolerated Well -Offloading No -Debridement - Subq, 1st 20sq cm Yes Pain Scale: 0-10 Numeric Is Patient Pain Free? Yes Yes - Nurse 3 - General Ulcer D/C NN Start: 12/28/21 09:41 Freq: Status: Active Protocol: Activity Type Activity Date Activity User E-sign Co-sign Detail Recorded Client Recorded Date Recorded By Document 12/28/21 10:31 ML [id number] 12/28/21 10:31 ML 12/28/21 10:31 Wound Care Nurse 3 #13 Right Poole -Ulcer Cleansing Rinsed/ Irrigated with Saline -Other Dressing xeroform -Primary Dressing Covered/Secured with Dry Gauze & Roll Gauze, Secured with Tape Pain Scale: 0-10 Numeric Is Patient Pain Free? Yes WC - Visit Discharge Discharge Condition Stable Ambulatory Status Ambulatory Medication Reconcilliation completed & No provided to patient/care provider Clinical Summary of Care Provided Yes Assessment/Plan Assessment/Plan (1) Type 2 diabetes mellitus: CODE(S): E11.9 - Type 2 diabetes mellitus without complications QUALIFIERS: Diabetes mellitus chcf insulin use: without chcf use (2) Ulcer of right lower extremity with fat layer exposed: CODE(S): L97.912 - Non-pressure chronic ulcer of unspecified part of right lower leg with fat layer exposed PLAN: Discharge from the wound center follow-up as needed continue wearing compression stockings
== END 2022-01-06 11:54 | disposition home or self-care (01) ==
LOC: WC 09:45
PROVIDERS: PCP Family Medicine; Visit Provider Nurse Practitioner
DX: E11.622 Type 2 diabetes mellitus with other skin ulcer (principal); L97.811 Non-pressure chronic ulcer of other part of right lower leg limited to breakdown of skin
CPT/HCPCS: 11042; 99212; 99213; G0463

== ENCOUNTER → 2024-02-29 | Outpatient (CLI) | payer MEDICARE, OTHER, SELFPAY ==
[2024-02-29 17:37] LABS: Absolute Lymphocyte Count 2.03 X10^3/uL (0.83-4.51); Absolute Neutrophil Count 8.1 X10^3/uL (2.0-7.7); Basophil# 0.07 X10^3/uL; Basophil% 0.6 % (0-1); Eosinophil# 0.53 X10^3/uL; Eosinophils% 4.4 % (0-5); Hematocrit 44.7 % (40-54); Hemoglobin 13.9 g/dL (13.0-16.5); Lymphocyte # 2.03 X10^3/ul (0.83-4.51); Mean Corp Hgb Conc 31.1 g/dL (32-36); Mean Corpuscular Hgb 28.5 pg (27.0-32.0); Mean Corpuscular Volume 91.8 fL (80-94); Mean Platelet Vol. 9.9 fl (6.2-12.0); Monocyte# 1.13 X10^3/uL; Monocyte% 9.5 % (0-10); NRBC Flagged by Analyzer 0 % (0-5); Neutrophil # 8.13 X10^3/uL (2.7-7.7); Neutrophil % 68.2 % (47-70); Platelet Count 268 K/mm3 (150-450); RBC Distribution Width CV 12.8 % (11.6-14.6); RBC Distribution Width SD 42.8 fl (35.1-43.9); Red Blood Count 4.87 M/mm3 (4.6-6.2); White Blood Count 11.9 K/mm3 (4.4-11.0)
[2024-02-29 17:58] LABS: ALB/GLOB Ratio 0.7 RATIO (0.9-2.4); AST(SGOT) 16 U/L (15-37); Alanine Aminotransfer ALT/SGPT 17 U/L (16-61); Albumin, Serum 3.3 g/dL (3.2-5.0); Alkaline Phosphatase 94 U/L (45-117); Anion Gap 5 (5-15); BUN 22 mg/dL (7-18); BUN/Creat Ratio 19.6 RATIO (10-20); Calcium,Total 9.4 mg/dL (8.5-10.1); Chloride 105 mmol/L (98-107); Creatinine, Serum 1.12 mg/dL (0.70-1.30); EST Glomerular Filtration Rate 67 mL/min (>60); Est Glom Filt Rate - Afr Amer 81 mL/min (>60); Globulin 4.5 g/dL (2.2-4.2); Glucose 131 mg/dL (74-106); Potassium 4.2 mmol/L (3.5-5.1); Protein, Total 7.8 g/dL (6.4-8.2); Sodium Level 140 mmol/L (136-145)
[2024-02-29 18:01] LABS: Hemoglobin A1c 6.3 % (3.8-5.6)
== END | disposition home or self-care (01) ==
LOC: MFPLAB 16:02
PROVIDERS: PCP Family Medicine; Visit Provider Family Medicine
DX: E11.9 Type 2 diabetes mellitus without complications (principal)
CPT/HCPCS: 36415; 80053; 83036; 85025

== ENCOUNTER → 2025-03-09 | Outpatient (CLI) | payer MEDICARE, SELFPAY ==
--- NOTE | 2025-03-09 16:00 | LES_PTH ---
PATIENT: ENZO GARCIA LOC: [facility] U#:[id number] AGE/SX: 84/M ROOM: RE03/09/[address]: Dr. Guero Kohli MD : [id number] BED: DIS: 03/09/2025 SPEC #: [id number] RECD: 03/09/25 17:00 STATUS: ELIZABETH REMarsha #: [id number] CAMERON: 03/09/25 16:[address]: Guero Kohli DEPT: SURGICAL PATHOLOGY RECD BY: Gabe Romero ENTERED: 03/10/25 09:14 SP TYPE: Lesion OTHR DR: Dr. Zaki Thompson MD Tissues: A - Skin of scalp, NOS B - Skin of scalp, NOS Procedures: Surgery Specimen Level IV HEADER OPERATION: Biopsy scalp PRE-OP DIAGNOSIS: Scalp biopsy TISSUE SUBMITTED: A- Top of scalp, B- Scalp MICROSCOPIC DIAGNOSIS A. Skin, scalp, top, biopsy: Actinic keratosis, eroded / traumatized. B. Skin, scalp, biopsy: Actinic keratosis. MICROSCOPIC DESCRIPTION Slides are reviewed. GROSS DESCRIPTION Received in 2 formalin containers labeled with the patient's name and date of . Designated as: A. Top of scalp is a 0.6 x 0.2 x 0.1 cm irregular, zimmer skin shave devoid of orientation. The resection margin is inked green. Eccentrically on the epidermal surface is a 0.1 cm red scab abutting the peripheral edge. Entirely submitted in 1 cassette. B. Scalp is a 0.4 x 0.3 x 0.1 cm irregular, zimmer skin shave devoid of orientation. The resection margin is inked black. There is blue surgical markings comprising approximately 50% of the epidermal surface however, no definitive lesions are grossly appreciated. Entirely submitted in 1 cassette. MO 03/10/2025 CPT:[id number]
== END | disposition home or self-care (01) ==
PROVIDERS: PCP Family Medicine; Referring Provider Surgery Plastic and Reconstructive Surgery; Visit Provider Surgery Plastic and Reconstructive Surgery
DX: L57.0 Actinic keratosis (principal)
CPT/HCPCS: 88305

== ENCOUNTER → 2025-04-01 | Outpatient (CLI) | payer MEDICARE, SELFPAY ==
[2025-04-01 18:02] LABS: Hematocrit 43.8 % (40-54); Hemoglobin 13.8 g/dL (13.0-16.5); Immature Granulocytes Count 0.050 X10^3/uL (0.0-0.0); Mean Corp Hgb Conc 31.5 g/dL (32-36); Mean Corpuscular Volume 93.2 fL (80-94); Mean Platelet Vol. 10.5 fl (6.2-12.0); NRBC Flagged by Analyzer 0 % (0-5); Platelet Count 339 K/mm3 (150-450); RBC Distribution Width CV 12.9 % (11.6-14.6); RBC Distribution Width SD 43.8 fl (35.1-43.9); Red Blood Count 4.70 M/mm3 (4.6-6.2); White Blood Count 11.3 K/mm3 (4.4-11.0)
[2025-04-01 19:00] LABS: Creatinine, Urine (random) 18.20 mg/dL (39.00-259.00); Microalbumin,Random Urine < 12.0 mg/L (<20 mg/L)
[2025-04-01 19:14] LABS: AST(SGOT) 16 U/L (<=37); Alanine Aminotransfer ALT/SGPT 12 U/L (<=46); Albumin, Serum 3.9 g/dL (3.4-4.8); Alkaline Phosphatase 80 U/L (40-129); Anion Gap 14 (5-15); BUN 20 mg/dL (4-19); BUN/Creat Ratio 19.6 RATIO (10-20); Calcium,Total 9.6 mg/dL (7.6-11.0); Carbon Dioxide 26.9 mmol/L (21.0-32.0); Chloride 102 mmol/L (98-108); Globulin 3.2 g/dL (2.2-4.2); Glucose 148 mg/dL (70-99); Potassium 4.3 mmol/L (3.3-5.1)
== END | disposition home or self-care (01) ==
LOC: MFPLAB 14:25
PROVIDERS: PCP Family Medicine; Visit Provider Family Medicine
DX: D49.9 Neoplasm of unspecified behavior of unspecified site (principal)
CPT/HCPCS: 36415; 80053; 82043; 82570; 85025